=== PATIENT | male | born 1960 | race Caucasian/White ===

== ENCOUNTER 2016-08-28 13:37 | Inpatient (IN) | payer OTHER ==
[~2016-08-28] VITALS: Ht 172.7 cm; Wt 94.7 kg
[~2016-08-28 13:37] MED LIST: ALPR1TAB3 PO; ASPEC81 PO; ATOR-22 PO; GABA-112 PO; GLC/500 PO; HYDR-4079 PO; LEVO88TA PO; LSN5 PO; MECL1TAB40 PO
[2016-08-28] MEDS ORDERED: ASPI81TA28 PO (13:53)
[2016-08-28] MEDS ORDERED: LORAZEPAM 1 MG TAB PO STA (14:38)
[2016-08-28 14:57] LABS: BASO % 0.2 %; BASO ABS # 0.02 K/uL (0-0.2); COMPLETE YES; EOS % 1.1 %; HEMATOCRIT 54.7 % (42-52); IG% 0.3 %; LYMPH % 22.4 %; LYMPH ABS # 2.12 K/uL (1.2-3.4); MEAN CELL VOLUME 91.2 fL (80-100); MEAN CORPUSCULAR HEMOGLOBIN 30.3 pg (25-34); MEAN CORPUSCULAR HGB CONC 33.3 g/dl (32-36); MEAN PLATELET VOLUME 9.9 fL (7.4-10.4); MONO % 12.7 %; NEUT % 63.3 %; PLATELET COUNT 262 K/uL (130-400); WHITE BLOOD COUNT 9.47 K/uL (4.8-10.8)
[2016-08-28 15:17] LABS: BUN/CREATININE RATIO 18.8 (10-20); CALCIUM 9.7 mg/dl (8.5-10.1); CREATININE 1.2 mg/dl (0.60-1.40); POTASSIUM 3.7 mmol/L (3.5-5.1)
[2016-08-28 15:20] LABS: ACETAMINOPHEN < 2 ug/ml (10-30)
[2016-08-28] MEDS ORDERED: LORAZEPAM 1 MG TAB SL STA (15:20)
[2016-08-28 15:25] LABS: BENZODIAZEPINE, URINE POS (NEG); COCAINE,URINE NEG (NEG); PHENCYCLIDINE, URINE NEG (NEG)
[2016-08-28 15:29] LABS: ALKALINE PHOSPHATASE 62 U/L (45-117); ALT/SGPT 63 U/L (12-78); AST/SGOT 35 U/L (15-37); THYROID STIMULATING HORMONE 0.584 uIu/ml (0.300-4.500)
[2016-08-28] MEDS ORDERED: NICOTINE 14 MG/24 HR TDSY ONE (15:37)
[2016-08-28] MEDS ORDERED: ALUMINUM/MAGNESIUM SUSP 30 ML UDC PO PRN ×2 (16:15→20:45)
[2016-08-28] MEDS ORDERED: MAGNESIUM HYDROXIDE SUSP 30 ML UDC PO PRN ×2 (16:15→20:45)
[2016-08-28] MEDS ORDERED: hydrOXYzine HCL 25 MG TAB PO PRN ×4 (16:15→20:45)
[2016-08-28] MEDS ORDERED: ACETAMINOPHEN 325 MG TAB PO PRN ×2 (16:15→20:45)
[2016-08-28] MEDS ORDERED: SODIUM CHLORIDE 0.65% NA SOLN 45 ML (OCEAN) PRN ×2 (16:15→20:45)
[2016-08-28] MEDS ORDERED: BISMUTH SUBSALICYLATE PER ML OMNICELL CHARGE PO PRN (16:15)
[2016-08-28] MEDS ORDERED: HALOPERIDOL LACTATE 5 MG/ML 1 ML VIAL IM PRN (16:30)
[2016-08-28] MEDS ORDERED: HALOPERIDOL 5 MG TAB PO PRN (16:30)
[2016-08-28] MEDS ORDERED: HYDROCODONE/ACETAMI 10/325 TAB PO STA (16:35)
[2016-08-28] MEDS ORDERED: NICOTINE 14 MG/24 HR TDSY TD STA (16:40)
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
[2016-08-28] MEDS ORDERED: METFORMIN HCL 500 MG TAB PO STA (19:31)
[2016-08-28] MEDS ORDERED: ATORVASTATIN 40 MG TAB PO STA (19:31)
[2016-08-28] MEDS ORDERED: LEVOTHYROXINE 88 MCG TAB PO STA (19:31)
[2016-08-28] MEDS ORDERED: LISINOPRIL 5 MG TAB PO ONE (19:45)
[2016-08-28 20:32] VITALS: O2SAT 94
[2016-08-28] MEDS ORDERED: GABAPENTIN 100 MG CAP PO SCH (21:00)
[2016-08-28] MEDS ORDERED: METFORMIN HCL 500 MG TAB PO SCH (21:00)
[2016-08-28] MEDS ORDERED: NICOTINE POLACRILEX 2 MG GUM MT PRN (21:15)
[2016-08-28 21:20] VITALS: BP 146/102; PULSE 64; TEMP 37; BMI 31.7
[2016-08-28] MEDS: ALPRAZOLAM 0.5 MG TAB PO SCH (21:51)
[2016-08-28] MEDS: GABAPENTIN 300 MG CAP PO SCH (21:51)
[2016-08-28] MEDS: ATORVASTATIN 40 MG TAB PO SCH (21:51)
[2016-08-28] MEDS: HYDROCODONE/ACETAMI 10/325 TAB PO PRN (22:00)
[2016-08-29] MEDS ORDERED: NURSING VERBAL MED ORDER ONE ×2 (01:15→16:00)
[2016-08-29 07:01] VITALS: Ht 172.7 cm; Wt 94.7 kg
[2016-08-29 07:05] VITALS: BP_SYST 108; BP_SYST 109; BP_DIAS 71; BP_DIAS 72; PULSE 55; PULSE 60; TEMP 36.3
[2016-08-29] MEDS: ASPIRIN 81 MG ECTAB PO SCH (08:47)
[2016-08-29] MEDS: LEVOTHYROXINE 88 MCG TAB PO SCH (08:47)
[2016-08-29] MEDS: NICOTINE 21 MG/24 HR TDSY EXT SCH (08:47)
[2016-08-29] MEDS: LISINOPRIL 5 MG TAB PO SCH (08:48)
[2016-08-29] MEDS: METFORMIN HCL 500 MG TAB PO SCH ×2 (08:48→17:42)
[2016-08-29] MEDS ORDERED: ATORVASTATIN 20 MG TAB PO SCH (09:00)
[2016-08-29] MEDS ORDERED: LISINOPRIL 5 MG TAB PO SCH (09:00)
[2016-08-29] MEDS ORDERED: LEVOTHYROXINE 88 MCG TAB PO SCH (09:00)
[2016-08-29] MEDS ORDERED: ASPIRIN 81 MG ECTAB PO SCH (09:00)
[2016-08-29] MEDS ORDERED: HALOPERIDOL LACTATE 5 MG/ML 1 ML VIAL IM PRN (10:15)
[2016-08-29] MEDS ORDERED: HALOPERIDOL 5 MG TAB PO PRN (10:15)
[2016-08-29] MEDS ORDERED: FLUO10CA48 PO (11:13)
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
[2016-08-29] MEDS ORDERED: LITH1TAB16 PO (11:37)
[2016-08-29] MEDS ORDERED: LITHIUM CARBONATE 300 MG TAB PO ONE (12:15)
[2016-08-29] MEDS ORDERED: FLUOXETINE HCL 10 MG CAP PO ONE (12:15)
[2016-08-29] MEDS: HYDROCODONE/ACETAMI 10/325 TAB PO PRN ×2 (12:35→21:23)
[2016-08-29] MEDS: BISMUTH SUBSALICYLATE PER ML OMNICELL CHARGE PO PRN (17:07)
[2016-08-29] MEDS: IBUPROFEN 600 MG TAB PO PRN (18:39)
[2016-08-29] MEDS: ATORVASTATIN 40 MG TAB PO SCH (21:18)
[2016-08-29] MEDS: LITHIUM CARBONATE 300 MG TAB PO SCH (21:18)
[2016-08-29] MEDS: GABAPENTIN 300 MG CAP PO SCH (21:18)
[2016-08-29] MEDS: ALPRAZOLAM 0.5 MG TAB PO SCH (21:18)
[2016-08-30] MEDS: NICOTINE 21 MG/24 HR TDSY EXT SCH (06:42)
[2016-08-30] MEDS: HYDROCODONE/ACETAMI 10/325 TAB PO PRN ×3 (06:52→20:05)
[2016-08-30 07:00] VITALS: BP_SYST 115; BP_SYST 126; BP_DIAS 77; BP_DIAS 83; PULSE 54; PULSE 57; TEMP 36.2
[2016-08-30] MEDS: LEVOTHYROXINE 88 MCG TAB PO SCH (08:56)
[2016-08-30] MEDS: METFORMIN HCL 500 MG TAB PO SCH ×2 (08:56→17:19)
[2016-08-30] MEDS: ASPIRIN 81 MG ECTAB PO SCH (08:56)
[2016-08-30] MEDS: FLUOXETINE HCL 10 MG CAP PO SCH (08:57)
[2016-08-30] MEDS: LISINOPRIL 5 MG TAB PO SCH (08:57)
[2016-08-30] MEDS: LITHIUM CARBONATE 300 MG TAB PO SCH ×2 (08:57→21:29)
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
[2016-08-30] MEDS: BISMUTH SUBSALICYLATE PER ML OMNICELL CHARGE PO PRN (13:44)
[2016-08-30] MEDS: IBUPROFEN 600 MG TAB PO PRN (19:03)
[2016-08-30] MEDS: ALPRAZOLAM 0.5 MG TAB PO SCH (21:29)
[2016-08-30] MEDS: PRAZOSIN HCL 1 MG CAP PO SCH (21:29)
[2016-08-30] MEDS: GABAPENTIN 300 MG CAP PO SCH (21:30)
[2016-08-30] MEDS: ATORVASTATIN 40 MG TAB PO SCH (21:30)
[2016-08-31 06:59] VITALS: BP_SYST 107; BP_SYST 132; BP_DIAS 73; BP_DIAS 77; PULSE 63; PULSE 64; TEMP 36.4
[2016-08-31] MEDS: LEVOTHYROXINE 88 MCG TAB PO SCH (08:00)
[2016-08-31] MEDS: ASPIRIN 81 MG ECTAB PO SCH (08:36)
[2016-08-31] MEDS: METFORMIN HCL 500 MG TAB PO SCH ×2 (08:36→17:46)
[2016-08-31] MEDS: NICOTINE 21 MG/24 HR TDSY EXT SCH (08:36)
[2016-08-31] MEDS: HYDROCODONE/ACETAMI 10/325 TAB PO PRN (08:37)
[2016-08-31] MEDS: LITHIUM CARBONATE 300 MG TAB PO SCH ×2 (08:37→21:45)
[2016-08-31] MEDS: FLUOXETINE HCL 10 MG CAP PO SCH (08:37)
[2016-08-31] MEDS: LISINOPRIL 5 MG TAB PO SCH (08:37)
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
[2016-08-31 15:26] LABS: COD UR NEGATIVE NG/ML (CUTOFF=50); HYDROCOD UR 1480 NG/ML (CUTOFF=50); HYDROMOR UR 866 NG/ML (CUTOFF=50); HYDROXYETHYLFLURAZEPAM CONF NEGATIVE NG/ML (CUTOFF=50); HYDROXYMIDAZOLAM NEGATIVE NG/ML (CUTOFF=50); HYDROXYTRIAZOLAM CONF NEGATIVE NG/ML (CUTOFF=50); MORPHINE UR NEGATIVE NG/ML (CUTOFF=50); NORHYDROCODONE CONF UR 2120 NG/ML (CUTOFF=50); OXYMORPH UR NEGATIVE NG/ML (CUTOFF=50); TEMAZEPAM CONF NEGATIVE NG/ML (CUTOFF=50)
[2016-08-31] MEDS: ALPRAZOLAM 0.5 MG TAB PO SCH (21:44)
[2016-08-31] MEDS: ATORVASTATIN 40 MG TAB PO SCH (21:45)
[2016-08-31] MEDS: GABAPENTIN 300 MG CAP PO SCH (21:46)
[2016-08-31] MEDS: PRAZOSIN HCL 1 MG CAP PO SCH (21:46)
[2016-09-01 07:00] VITALS: BP_SYST 151; BP_SYST 154; BP_DIAS 83; BP_DIAS 88; PULSE 59; PULSE 62; TEMP 36.6
[2016-09-01] MEDS: LEVOTHYROXINE 88 MCG TAB PO SCH (08:50)
[2016-09-01] MEDS: ASPIRIN 81 MG ECTAB PO SCH (08:51)
[2016-09-01] MEDS: METFORMIN HCL 500 MG TAB PO SCH (08:51)
[2016-09-01] MEDS: FLUOXETINE HCL 10 MG CAP PO SCH (08:52)
[2016-09-01] MEDS: LISINOPRIL 5 MG TAB PO SCH (08:52)
[2016-09-01] MEDS: LITHIUM CARBONATE 300 MG TAB PO SCH (08:52)
[2016-09-01] MEDS: NICOTINE 21 MG/24 HR TDSY EXT SCH (08:53)
[2016-09-01] MEDS: HYDROCODONE/ACETAMI 10/325 TAB PO PRN (08:55)
[2016-09-01] MEDS ORDERED: LITH1TAB16 PO (09:57)
[2016-09-01] MEDS ORDERED: PRZ1 PO (09:57)
[2016-09-01] MEDS ORDERED: FLUO10CA48 PO (09:57)
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
[2016-09-01] MEDS ORDERED: XNX5 PO (12:19)
== END 2016-09-01 13:25 | disposition home or self-care (01) | DRG 883 ==
LOC: ENRESERVTM → ENRESERVDT → C.EDB 13:39 → C.MHU 19:42
PROVIDERS: ADMIT Psychiatry & Neurology Child & Adolescent Psychiatry; ATTEND Psychiatry & Neurology Psychiatry
DX: F60.2 Antisocial personality disorder (principal); F31.9 Bipolar disorder, unspecified; F43.10 Post-traumatic stress disorder, unspecified; R45.850 Homicidal ideations; F41.9 Anxiety disorder, unspecified; F17.210 Nicotine dependence, cigarettes, uncomplicated; E11.40 Type 2 diabetes mellitus with diabetic neuropathy, unspecified; E03.9 Hypothyroidism, unspecified; E78.5 Hyperlipidemia, unspecified; I10 Essential (primary) hypertension; G89.29 Other chronic pain; M54.9 Dorsalgia, unspecified; Z79.82 Long term (current) use of aspirin; Z79.899 Other long term (current) drug therapy; Z83.3 Family history of diabetes mellitus; Z80.1 Family history of malignant neoplasm of trachea, bronchus and lung; Z81.8 Family history of other mental and behavioral disorders

== ENCOUNTER 2017-04-25 15:50 | Emergency (ER) | payer OTHER ==
[~2017-04-25] VITALS: Ht 172.7 cm; Wt 102.0 kg
[~2017-04-25 15:50] MED LIST changes: -ALPR1TAB3 PO; -ASPEC81 PO; +ASPI81TA28 PO; +FLUO10CA48 PO; +LITH1TAB16 PO; -MECL1TAB40 PO; +PRZ1 PO; +XNX5 PO
[2017-04-25 16:05] VITALS: Ht 172.7 cm; Wt 102.0 kg
[2017-04-25] MEDS ORDERED: SODIUM CHLORIDE 0.9% 1000ML 500 ML IV STA (16:14)
--- NOTE | 2017-04-25 16:20 | EMERGENCY ROOM VISIT NOTE ---
History Report prepared by Priyanka: Cheyenne Peña Under the Supervision of: Dr. Rey Gates M.D. First contact with patient: 16:10 Chief Complaint: ABNORMAL LABS Stated Complaint: LITHIUM LEVELS HIGH- PHYSICIAN REFERRED History of Present Illness The patient is a 57 year old male who presents to the Emergency Room with complaints of abnormal labs. The patient states that for the past week to 10 days he has felt fatigued and more tired than usual. He had routine blood work done yesterday. Today he received a call from his PCP's office and was told that his lithium level was high and he should come to the ED for further evaluation. The patient takes 400 mg BID of lithium for a mood stabilizer. He has been taking it for 1 year and has never had problems in the past. He took his typical lithium dose this morning. The patient states that he noticed his depth perception was "off" this morning when he was walking his dog. He states that he has been feeling well, he just feels "a little bit off." The patient denies fevers, cough, chest pain, shortness of breath, nausea, vomiting, and diarrhea. He does report a tight feeling in his chest. 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 A total of 10 systems reviewed and were otherwise negative. Past Medical & Surgical Medical Problems: (1) Antisocial personality disorder (2) Anxiety (3) Biceps tendon rupture (4) Bipolar disorder, unspecified (5) Chronic back pain (6) Depression, major, recurrent, moderate (7) Diabetes (8) Diabetic neuropathy (9) Diverticulosis (10) Dyslipidemia (11) Hepatitis C (12) Homicidal ideation (13) Hypertension (14) Hypothyroid (15) Nicotine abuse Surgical Problems: (1) H/O left inguinal hernia repair (2) Hx of tonsillectomy (3) Right shoulder surgery Family History Depression MOTHER Diabetes mellitus MOTHER FH: alcoholism FATHER FH: aneurysm MOTHER FH: lung cancer GRANDMOTHER Suicide SISTER Social History Smoking Status: Current Every Day Smoker Alcohol Use: none Drug Use: none Marital Status: Housing Status: lives with family Occupation Status: other Current/Historical Medications Scheduled Aspirin (Aspirin Ec), 81 MG PO DAILY Atorvastatin (Lipitor), 40 MG PO DAILY Fluoxetine (Prozac), 10 MG PO DAILY Gabapentin (Neurontin), 300 MG PO TID Hydrocodone/Acetaminophen 10MG/325MG ([place] 10MG/325MG), 1 TAB PO QID Levothyroxine Sodium (Synthroid), 88 MCG PO DAILY Lisinopril (Zestril), 5 MG PO DAILY Metformin Hcl (Glucophage), 1,000 MG PO BID Trazodone Hcl (Trazodone), 2 TAB PO HS Allergies Coded Allergies: No Known Allergies (Verified , 04/25/17) Physical Exam Vital Signs Date Time Temp Pulse Resp B/P (MAP) Pulse Ox O2 Delivery O2 Flow Rate FiO2 04/25/17 16:05 37.2 69 16 148/93 94 Room Air Physical Exam GENERAL: Patient is in no acute distress. HEENT: No acute trauma, normocephalic atraumatic, mucous membranes moist, no nasal congestion, no scleral icterus. PERRL. NECK: No stridor, no adenopathy, no meningismus, trachea is midline. LUNGS: Scattered wheezing bilaterally, no rhonchi, breath sounds equal. HEART: Without murmurs gallops or rubs, regular rate and rhythm. ABDOMEN: Soft, nontender, bowel sounds positive, no hernias, no peritonitis. EXTREMITIES: No cyanosis or edema, full range of motion of all the joints without pain or difficulty, no signs for acute trauma. NEUROLOGIC: Oriented x 3, no acute motor or sensory deficits, no focal weakness. No pronator drift or cerebellar dysfunction. SKIN: No rash, no jaundice, no diaphoresis. Medical Decision & Procedures Laboratory Results 04/25/17 16:25 Red Blood Count 5.68, Mean Corpuscular Volume 91.5, Mean Corpuscular Hemoglobin 30.5, Mean Corpuscular Hemoglobin Concent 33.3, Mean Platelet Volume 9.7, Neutrophils (%) (Auto) 66.4, Lymphocytes (%) (Auto) 24.0, Monocytes (%) (Auto) 7.6, Eosinophils (%) (Auto) 1.0, Basophils (%) (Auto) 0.3, Neutrophils # (Auto) 6.10, Lymphocytes # (Auto) 2.20, Monocytes # (Auto) 0.70, Eosinophils # (Auto) 0.09, Basophils # (Auto) 0.03 04/25/17 16:25 Test 04/25/17 16:25 White Blood Count 9.18 K/uL (4.8-10.8) Red Blood Count 5.68 M/uL (4.7-6.1) Hemoglobin 17.3 g/dL (14.0-18.0) Hematocrit 52.0 % (42-52) Mean Corpuscular Volume 91.5 fL (80-100) Mean Corpuscular Hemoglobin 30.5 pg (25-34) Mean Corpuscular Hemoglobin Concent 33.3 g/dl (32-36) Platelet Count 239 K/uL (130-400) Mean Platelet Volume 9.7 fL (7.4-10.4) Neutrophils (%) (Auto) 66.4 % Lymphocytes (%) (Auto) 24.0 % Monocytes (%) (Auto) 7.6 % Eosinophils (%) (Auto) 1.0 % Basophils (%) (Auto) 0.3 % Neutrophils # (Auto) 6.10 K/uL (1.4-6.5) Lymphocytes # (Auto) 2.20 K/uL (1.2-3.4) Monocytes # (Auto) 0.70 K/uL (0.11-0.59) Eosinophils # (Auto) 0.09 K/uL (0-0.5) Basophils # (Auto) 0.03 K/uL (0-0.2) RDW Standard Deviation 45.9 fL (36.4-46.3) RDW Coefficient of Variation 13.7 % (11.5-14.5) Immature Granulocyte % (Auto) 0.7 % Immature Granulocyte # (Auto) 0.06 K/uL (0.00-0.02) Anion Gap 7.0 mmol/L (3-11) Est Creatinine Clear Calc Drug Dose 76.7 ml/min Estimated GFR () 76.3 Estimated GFR (Non- 65.8 BUN/Creatinine Ratio 11.0 (10-20) Calcium Level 9.2 mg/dl (8.5-10.1) Magnesium Level 2.1 mg/dl (1.8-2.4) Total Bilirubin 0.5 mg/dl (0.2-1) Aspartate Amino Transf (AST/SGOT) 36 U/L (15-37) Alanine Aminotransferase (ALT/SGPT) 77 U/L (12-78) Alkaline Phosphatase 60 U/L (45-117) Troponin I < 0.015 ng/ml (0-0.045) Total Protein 7.8 gm/dl (6.4-8.2) Albumin 4.0 gm/dl (3.4-5.0) Globulin 3.8 gm/dl (2.5-4.0) Albumin/Globulin Ratio 1.1 (0.9-2) Thyroid Stimulating Hormone (TSH) 1.700 uIu/ml (0.300-4.500) Free Thyroxine 0.99 ng/dl (0.80-1.60) [place] Level 0.7 mMOL/L (0.6-1.2) Laboratory results reviewed by me. Medications Administered Medications (Trade) Dose Ordered Sig/Kimberly Route Start Time Stop Time Status Last Admin Dose Admin Sodium Chloride 500 ml @ 999 mls/hr Q31M STAT IV 04/25/17 16:14 04/25/17 16:44 DC 04/25/17 16:14 999 MLS/HR ECG Indication: other Rate (beats per minute): 67 Rhythm: sinus rhythm Findings: PAC, no acute ischemic change, prolonged QT (mildly) ED Course 1610: The patient was evaluated in room A3. A complete history and physical exam was performed. 1614: NSS 500 ml @ 999 mls/hr IV Medical Decision Differential diagnoses includes dehydration, lithium toxicity, electrolyte imbalance, anemia, infection, dysrhythmia. There is no leukocytosis or concerning anemia. No significant electrolyte abnormality, kidney failure or hepatitis. The patient appears to be in a euthyroid state. [place] level is normal, it is not toxic. EKG shows a sinus rhythm, there is no acute ischemia. Cardiac enzyme testing 1 is not consistent with acute cardiac injury. The patient received IV saline. He was here because of a reported high lithium level. He's felt slightly different the last few days or so but otherwise has had no complaints. His workup is benign, he was reassured by his normal lithium level. He is being discharged with follow-up through his doctor's office this week. If worsening, he can return. Medication Reconcilliation Current Medication List: was personally reviewed by me Blood Pressure Screening Patient's blood pressure: Elevated blood pressure Blood pressure disposition: Elevated BP felt to be situational Impression Primary Impression: Fatigue Scribe Attestation The scribe's documentation has been prepared under my direction and personally reviewed by me in its entirety. I confirm that the note above accurately reflects all work, treatment, procedures, and medical decision making performed by me. Departure Information Dispostion Home / Self-Care Referrals Roseann Chaney M.D. (MEDICAL) (PCP) Patient Instructions My [facility] Additional Instructions follow with danita moreira this week rest stay hydrated return if worsening lab testing was ok today
[2017-04-25 16:39] LABS: BASO % 0.3 %; BASO ABS # 0.03 K/uL (0-0.2); COMPLETE YES; IG% 0.7 %; MEAN CELL VOLUME 91.5 fL (80-100); MEAN CORPUSCULAR HEMOGLOBIN 30.5 pg (25-34); MEAN CORPUSCULAR HGB CONC 33.3 g/dl (32-36); MEAN PLATELET VOLUME 9.7 fL (7.4-10.4); MONO % 7.6 %; NEUT % 66.4 %; PLATELET COUNT 239 K/uL (130-400); RED BLOOD COUNT 5.68 M/uL (4.7-6.1); WHITE BLOOD COUNT 9.18 K/uL (4.8-10.8)
[2017-04-25] MEDS ORDERED: LISI-729 PO (16:46)
[2017-04-25] MEDS ORDERED: TRAZ100T29 PO (16:46)
[2017-04-25] MEDS ORDERED: FLUO10CA48 PO (16:46)
[2017-04-25 17:01] LABS: ALT/SGPT 77 U/L (12-78); AST/SGOT 36 U/L (15-37); BLOOD UREA NITROGEN 13 mg/dl (7-18); CALCIUM 9.2 mg/dl (8.5-10.1); CARBON DIOXIDE 26 mmol/L (21-32); CHLORIDE 104 mmol/L (98-107); GLUCOSE 179 mg/dl (70-99); MAGNESIUM 2.1 mg/dl (1.8-2.4); POTASSIUM 3.7 mmol/L (3.5-5.1); SODIUM 137 mmol/L (136-145)
[2017-04-25 17:12] LABS: ALB/GLOB RATIO 1.1 (0.9-2); ALKALINE PHOSPHATASE 60 U/L (45-117)
[2017-04-25 18:20] VITALS: TEMP 37.2
[2017-04-25 18:21] VITALS: BP 186/103; PULSE 61; O2SAT 94
== END 2017-04-25 18:21 | disposition home or self-care (01) ==
LOC: C.EDB 15:52 → C.EDA 18:21
DX: R53.83 Other fatigue (principal); F60.2 Antisocial personality disorder; F41.9 Anxiety disorder, unspecified; F31.9 Bipolar disorder, unspecified; M54.9 Dorsalgia, unspecified; G89.29 Other chronic pain; F33.1 Major depressive disorder, recurrent, moderate; E11.40 Type 2 diabetes mellitus with diabetic neuropathy, unspecified; E78.5 Hyperlipidemia, unspecified; B19.20 Unspecified viral hepatitis C without hepatic coma; K57.90 Diverticulosis of intestine, part unspecified, without perforation or abscess without bleeding; I10 Essential (primary) hypertension; E03.9 Hypothyroidism, unspecified; F17.200 Nicotine dependence, unspecified, uncomplicated; Z79.82 Long term (current) use of aspirin; Z79.84 Long term (current) use of oral hypoglycemic drugs; Z81.8 Family history of other mental and behavioral disorders; Z83.3 Family history of diabetes mellitus; Z82.49 Family history of ischemic heart disease and other diseases of the circulatory system; Z80.1 Family history of malignant neoplasm of trachea, bronchus and lung

== ENCOUNTER 2017-09-24 08:50 | Inpatient (IN) | payer OTHER ==
[~2017-09-24] VITALS: Ht 172.7 cm; Wt 100.7 kg
[~2017-09-24 08:50] MED LIST changes: +LISI-729 PO; -LITH1TAB16 PO; -LSN5 PO; -PRZ1 PO; +TRAZ100T29 PO; -XNX5 PO
[2017-09-24] MEDS ORDERED: ADENOSINE IV SOLN 3 MG/ML 2 ML VIAL ONE (09:02)
--- NOTE | 2017-09-24 09:24 | DIAGNOSTIC IMAGING REPORT ---
CHEST ONE VIEW PORTABLE CLINICAL HISTORY: palp cardiac arrhythmia COMPARISON STUDY: 02/17/2015 FINDINGS: Mild cardiomegaly. Increased interstitial prominence throughout both hemithoraces. Diaphragms smooth. IMPRESSION: Mild cardiomegaly with findings suggesting early interstitial edema The above report was generated using voice recognition software. It may contain grammatical, syntax or spelling errors. Electronically signed by: Dean Mobley M.D. 09/24/2017 9:23 AM Dictated Date/Time: 09/24/2017 9:22 AM
[2017-09-24 09:26] LABS: BASO % 0.2 %; BASO ABS # 0.02 K/uL (0-0.2); HEMATOCRIT 57.4 % (42-52); HEMOGLOBIN 20.8 g/dL (14.0-18.0); IG# 0.06 K/uL (0.00-0.02); LYMPH % 14.2 %; LYMPH ABS # 1.62 K/uL (1.2-3.4); MEAN CELL VOLUME 90.5 fL (80-100); MEAN CORPUSCULAR HEMOGLOBIN 32.8 pg (25-34); MEAN CORPUSCULAR HGB CONC 36.2 g/dl (32-36); MEAN PLATELET VOLUME 10.4 fL (7.4-10.4); MONO % 13.6 %; MONO ABS # 1.56 K/uL (0.11-0.59); NEUT % 71.5 %; NEUT ABS # 8.17 K/uL (1.4-6.5); PLATELET COUNT 191 K/uL (130-400); RED CELL DISTRIBUTION WIDTH CV 13.8 % (11.5-14.5); RED CELL DISTRIBUTION WIDTH SD 46.2 fL (36.4-46.3); WHITE BLOOD COUNT 11.43 K/uL (4.8-10.8)
[2017-09-24] MEDS ORDERED: OPTIRAY 320 IV PRN (09:30)
[2017-09-24] MEDS ORDERED: SODIUM CHLORIDE 0.9% 1000ML 1,000 ML IV STA (09:31)
[2017-09-24 09:34] LABS: PTT PATIENT 28.7 SECONDS (21.0-31.0)
[2017-09-24 09:41] LABS: ALBUMIN 4.3 gm/dl (3.4-5.0); ALT/SGPT 123 U/L (12-78); AST/SGOT 67 U/L (15-37); BLOOD UREA NITROGEN 11 mg/dl (7-18); CARBON DIOXIDE 26 mmol/L (21-32); CREATININE 1.28 mg/dl (0.60-1.40); GLUCOSE 155 mg/dl (70-99); LIPASE 127 U/L (73-393); POTASSIUM 3.4 mmol/L (3.5-5.1); SODIUM 134 mmol/L (136-145)
--- NOTE | 2017-09-24 09:45 | EMERGENCY ROOM VISIT NOTE ---
ED Visit Note First contact with patient: 09:00 CHIEF COMPLAINT: Rapid heart rate, chest and abdominal pain, SOB HISTORY OF PRESENTING ILLNESS: This is a 57-year-old male who presents to the emergency department with complaint of shortness of breath, chest pain, abdominal pain, dizziness for the past few days. He states his symptoms got severely worse today. He states the pain is a constant ache, with occasional intermittent sharp stabbing pains in the upper abdomen, worse with taking a deep breath, 5/10. Patient states he has been sick with flulike symptoms for the past few days with fevers and chills, vomiting and diarrhea, and a cough. He states he has been feeling very fatigued. He started having abdominal pain and a distended abdomen last night which has gotten progressively worse today. Patient states that he has been a smoker for the past 40 years and reports a history of COPD. When his cough and shortness of breath symptoms started getting worse he did take 1 dose of prednisone yesterday, but has not been seen by his doctor. He is not currently on antibiotics. He denies any headaches, vision changes, neck pain or stiffness, back pain, hematemesis, bloody or black stools, urinary symptoms, or rash. REVIEW OF SYSTEMS: A complete 10 point review of systems was reviewed with the patient with pertinent positives and negatives as per history of present illness. All else were negative. PAST MEDICAL HISTORY: Reviewed in chart. SOCIAL HISTORY: Lives at home. He is a current everyday smoker. Denies alcohol and recreational drug use. ALLERGIES: No known allergies. PHYSICAL EXAM: CONSTITUTIONAL: Patient is in obvious distress, tachypneic and use of accessory muscles noted, able to speak in short sentences. Patient appears slightly pale , not diaphoretic. Moderately dehydrated. HEENT: Normocephalic, atraumatic. PERRL, EOMI. TMs normal. Pharynx normal. Dry mucous membranes. NECK: Supple, full active range of motion without discomfort. No cervical adenopathy. RESPIRATORY: Diminished throughout with diffuse expiratory wheezing on auscultation. Tachypneic with accessory muscle use. No crackles, rhonchi or stridor. Equal expansion bilaterally. CARDIOVASCULAR: Tachycardic. Regular rhythm with no murmurs, rubs or gallops. Delayed capillary refill. No extremity edema. No JVD. No carotid bruit heard on auscultation. GASTROINTESTINAL: Distended, diffusely tender throughout, firm. Mottled skin across the entire abdomen. Decreased bowel sounds throughout. MUSCULOSKELETAL: Full range of motion of all joints without discomfort. INTEGUMENTARY: No rash or other significant dermatologic conditions noted. NEUROLOGIC: Alert and oriented X 4 with normal affect. No focal neurologic deficits noted. Normal speech. ED COURSE AND MEDICAL DECISION MAKING: CC: Patient presenting with complaint of rapid heart rate, abdominal and chest pain DIFFERENTIAL DIAGNOSIS: Includes, but not limited to SBO, ischemic bowel, appendicitis, diverticulitis, bowel perforation, cardiac dysrhythmia, acute coronary syndrome, aortic dissection, PE, pneumonia, COPD exacerbation, CHF, sepsis/bacteremia, dehydration, electrolyte imbalance, among others. INTERPRETATION OF LABS: Mild leukocytosis with left shift, polycythemia ( appears worse from baseline), normal platelets, mild hypokalemia, no significant electrolyte abnormalities, renal function within normal limits and appears to be at baseline, mild elevation in transaminases, liver enzymes otherwise normal. Initial troponin negative, pro-BNP within normal limits. Lactic acid negative. Venous blood gas appears within normal limits. Coagulation factors within normal limits. TSH normal. Positive for influenza type B. UA pending. Blood cultures 2 pending. IMAGING: CHEST ONE VIEW PORTABLE CLINICAL HISTORY: palp cardiac arrhythmia COMPARISON STUDY: 02/17/2015 FINDINGS: Mild cardiomegaly. Increased interstitial prominence throughout both hemithoraces. Diaphragms smooth. IMPRESSION: Mild cardiomegaly with findings suggesting early interstitial edema ----- CT OF THE ABDOMEN AND PELVIS WITH CONTRAST CLINICAL HISTORY: Abdominal distention. COMPARISON STUDY: CT of the abdomen and pelvis March 29, 2011. TECHNIQUE: Following IV administration of 92 mL of Optiray-320, axial images of the abdomen and pelvis were obtained from the lung bases to the proximal femurs. Images were reviewed in the axial, sagittal, and coronal planes. IV contrast was administered without complication. A dose lowering technique was utilized adhering to the principles of ALARA. CT DOSE: 1405.14 mGy.cm FINDINGS: Visualized portions of the lower lungs demonstrate subpleural reticulation with mild traction bronchiectasis and suspected honeycombing most evident within the lingula. There are calcified mediastinal and bilateral hilar lymph nodes. Fatty infiltration of the liver is noted. A 1.4 cm segment 5 hypodense hepatic lesion is unchanged since CT of March 29, 2011. This is benign given stability. 6 mm left lower lobe pulmonary nodule is unchanged. This is benign given stability. The spleen, adrenal glands and pancreas are normal. There are innumerable bilateral renal lesions. The larger lesions measure water attenuation and reflect cysts. There are numerous subcentimeter renal lesions which are too small to characterize but likely reflect cysts as well. There is a 3 cm infrarenal abdominal aortic aneurysm without evidence for rupture. There is no evidence for a bowel obstruction. Note is made of colonic diverticulosis without evidence for acute diverticulitis. The appendix is normal. There is no lymphadenopathy. No suspicious osseous lesion is present. IMPRESSION: 1. No acute process within the abdomen or pelvis. 2. Subpleural reticulation with mild traction bronchiectasis and probable honeycombing within the lingula which is consistent with interstitial lung disease with a UIP pattern. 3. Fatty liver. 4. Sigmoid diverticulosis without evidence for acute diverticulitis. 5. 3 cm infrarenal abdominal aortic aneurysm. No rupture. EKG: Shows supraventricular tachycardia with rate of 167bpm by my interpretation. MEDICATION RECONCILIATION: I attest that I have personally reviewed the patient 's current medication list. INITIAL VITAL SIGNS REVIEW: I reviewed the patient's initial vital signs and interpret them as follows: T: Afebrile; BP: Hypertensive; HR: Markedly tachycardic; RR: Tachypneic; Pulse Ox: Hypoxic on room air, improved on 4L O2. Blood pressure screening: The patient was found to have an elevated blood pressure and was referred to the inpatient hospitalist team for further management. CRITICAL CARE NOTE: I have personally spent greater than 30 minutes of critical care time in the direct management of this patient. This includes bedside care, interpretation of diagnostic studies, and testing, discussion with consultants, patient, and family members, and other required patient management activities. This 30 minutes is in excess of all separately billable procedures. SUMMARY: Patient was evaluated at bedside in room B1, history and physical exam performed. The patient noted to be in a rapid heart rate of 160-170s, reading SVT on EKG. Patient is notably short of breath, tachypneic, using accessory muscles, and hypoxic to 87% on room air. Placed on 4L nasal cannula with initial improvement to 94%. He is a smoker and reports history of COPD, but does not appear to be on medications for this. He does not use home O2. Lungs are diminished with diffuse expiratory wheezes. No rales, JVD, or extremity edema to suggest severe fluid overload. He does appear moderately dehydrated on exam, IV fluid bolus initiated. Blood pressure stable. The abdomen is distended and diffusely tender with mottled skin. The patient was able to perform vagal maneuvers which did temporarily bring his heart rate down to a rate of 80s-90s beats per minute. Given concern for moderate volume depletion, and some responsiveness to vagal maneuvers, adenosine was held in lieu of IV fluid hydration. EKG was captured during this time, noting an underlying sinus rhythm with sinus arrhythmia and occasional PVCs and rate of 88 bpm. Orders were placed at bedside for labs including blood cultures and lactic acid , influenza, UA, IV fluid bolus for hydration, chest x-ray, CT abdomen/pelvis to evaluate for intra-abdominal etiology, specifically concern for SBO, perforation, and infectious process. IV fentanyl ordered for pain, with good improvement. Patient discussed with Dr. Cornejo, who was at bedside during initial evaluation of the patient and agrees with my assessment and plan. Labs and imaging reviewed as above, he is positive for influenza type B. Tamiflu was ordered. No acute abdominal process, suspect abdominal distention secondary to retention of air. Lung findings suggestive of interstitial disease. Incidental note is made of 3 cm infrarenal aortic aneurysm without any sign of rupture. I suspect the patient's SOB most likely related to COPD exacerbation, treated with IV Solu-Medrol, DuoNeb, and he was given IV Levaquin for potential pneumonia. Patient did spontaneously convert out of his rapid rhythm into a normal sinus rhythm with a rate in the 70s after receiving IV fluids, and is overall improving. He does continue to require 4L of oxygen to maintain sats. Patient was discussed with BERNA Mason with hospitalist service, who agrees to evaluate the patient for admission. Patient was closely monitored and reassessed multiple times throughout ED stay, he is stabilizing and symptoms are improving with the above interventions. Patient was updated on all results and plan for admission, he verbalized understanding and was agreeable to this plan. The patient was stable at time of admission. Problem List Medical Problems: (1) Anxiety Status: Chronic (2) Biceps tendon rupture Permanent Comment: s/p repair Status: Chronic (3) Chronic back pain Status: Chronic (4) Depression, major, recurrent, moderate Status: Chronic (5) Diabetes Status: Chronic (6) Diabetic neuropathy Status: Chronic (7) Diverticulosis Status: Chronic (8) Dyslipidemia Status: Chronic (9) Headache Status: Resolved (10) Hepatitis C Status: Chronic (11) Hypertension Status: Chronic (12) Hypothyroid Status: Chronic (13) Nicotine abuse Status: Chronic Surgical Problems: (1) H/O left inguinal hernia repair Status: Chronic (2) Hx of tonsillectomy Status: Chronic (3) Right shoulder surgery Status: Chronic Current/Historical Medications Scheduled Aspirin (Aspirin Ec), 81 MG PO DAILY Atorvastatin (Lipitor), 1 TAB PO DAILY Gabapentin (Neurontin), 300 MG PO TID Levothyroxine Sodium (Synthroid), 88 MCG PO DAILY Lisinopril (Prinivil), 20 MG PO DAILY Metformin Hcl (Glucophage), 1,000 MG PO BID Trazodone Hcl (Trazodone), 3 TAB PO HS Scheduled PRN Hydrocodone/Acetaminophen ([place] 10/325 Tab), 1 TAB PO Q6H PRN for Pain Allergies Coded Allergies: No Known Allergies (Verified , 09/24/17) Vital Signs Date Time Temp Pulse Resp B/P (MAP) Pulse Ox O2 Delivery O2 Flow Rate FiO2 09/24/17 13:58 64 20 148/87 97 09/24/17 13:08 69 20 153/93 94 Nasal Cannula 4.0 09/24/17 12:15 93 Nasal Cannula 4.0 09/24/17 12:11 93 Nasal Cannula 4.0 09/24/17 12:04 79 18 124/82 87 Room Air 09/24/17 11:38 Nasal Cannula 2.0 09/24/17 11:00 86 20 143/92 93 Nasal Cannula 2.0 09/24/17 10:11 78 19 149/98 96 Nasal Cannula 4.0 09/24/17 10:09 76 09/24/17 09:46 138 29 122/89 94 Nasal Cannula 4.0 09/24/17 09:39 82 24 151/104 96 Nasal Cannula 4.0 09/24/17 09:37 153/102 09/24/17 09:35 67 29 94 09/24/17 09:30 97 27 95 09/24/17 09:25 60 22 96 09/24/17 09:24 37.5 09/24/17 09:20 106 15 95 09/24/17 09:20 120 09/24/17 09:16 126/89 09/24/17 09:16 86 09/24/17 09:10 Nasal Cannula 4.0 09/24/17 09:09 146 09/24/17 09:02 160 22 147/84 92 Room Air Laboratory Results 09/24/17 09:10 Red Blood Count 6.34, Mean Corpuscular Volume 90.5, Mean Corpuscular Hemoglobin 32.8, Mean Corpuscular Hemoglobin Concent 36.2, Mean Platelet Volume 10.4, Neutrophils (%) (Auto) 71.5, Lymphocytes (%) (Auto) 14.2, Monocytes (%) (Auto) 13.6, Eosinophils (%) (Auto) 0.0, Basophils (%) (Auto) 0.2, Neutrophils # (Auto ) 8.17, Lymphocytes # (Auto) 1.62, Monocytes # (Auto) 1.56, Eosinophils # (Auto ) 0.00, Basophils # (Auto) 0.02 09/24/17 09:10 Test 09/24/17 09:10 09/24/17 09:20 09/24/17 09:35 White Blood Count 11.43 K/uL (4.8-10.8) Red Blood Count 6.34 M/uL (4.7-6.1) Hemoglobin 20.8 g/dL (14.0-18.0) Hematocrit 57.4 % (42-52) Mean Corpuscular Volume 90.5 fL (80-100) Mean Corpuscular Hemoglobin 32.8 pg (25-34) Mean Corpuscular Hemoglobin Concent 36.2 g/dl (32-36) Platelet Count 191 K/uL (130-400) Mean Platelet Volume 10.4 fL (7.4-10.4) Neutrophils (%) (Auto) 71.5 % Lymphocytes (%) (Auto) 14.2 % Monocytes (%) (Auto) 13.6 % Eosinophils (%) (Auto) 0.0 % Basophils (%) (Auto) 0.2 % Neutrophils # (Auto) 8.17 K/uL (1.4-6.5) Lymphocytes # (Auto) 1.62 K/uL (1.2-3.4) Monocytes # (Auto) 1.56 K/uL (0.11-0.59) Eosinophils # (Auto) 0.00 K/uL (0-0.5) Basophils # (Auto) 0.02 K/uL (0-0.2) RDW Standard Deviation 46.2 fL (36.4-46.3) RDW Coefficient of Variation 13.8 % (11.5-14.5) Immature Granulocyte % (Auto) 0.5 % Immature Granulocyte # (Auto) 0.06 K/uL (0.00-0.02) Prothrombin Time 10.7 SECONDS (9.0-12.0) Prothromb Time International Ratio 1.0 (0.9-1.1) Activated Partial Thromboplast Time 28.7 SECONDS (21.0-31.0) Partial Thromboplastin Ratio 1.1 Anion Gap 10.0 mmol/L (3-11) Est Creatinine Clear Calc Drug Dose 69.2 ml/min Estimated GFR () 70.5 Estimated GFR (Non- 60.9 BUN/Creatinine Ratio 8.9 (10-20) Calcium Level 9.0 mg/dl (8.5-10.1) Magnesium Level 2.0 mg/dl (1.8-2.4) Total Bilirubin 0.6 mg/dl (0.2-1) Direct Bilirubin 0.1 mg/dl (0-0.2) Aspartate Amino Transf (AST/SGOT) 67 U/L (15-37) Alanine Aminotransferase (ALT/SGPT) 123 U/L (12-78) Alkaline Phosphatase 77 U/L (45-117) Total Creatine Kinase 133 U/L (39-308) Creatine Kinase MB 0.8 ng/ml (0.5-3.6) Creatine Kinase MB Ratio 0.6 (0-3.0) Pro-B-Type Natriuretic Peptide 415 pg/ml (0-900) Total Protein 8.6 gm/dl (6.4-8.2) Albumin 4.3 gm/dl (3.4-5.0) Lipase 127 U/L (73-393) Beta-Hydroxybutyric Acid 2.73 mg/dL (0.2-2.81) Thyroid Stimulating Hormone (TSH) 1.350 uIu/ml (0.300-4.500) Influenza Type A (RT-PCR) Neg for Influ A (NEG) Influenza Type B (RT-PCR) POS for Influ B (NEG) Venous Blood pH 7.40 (7.36-7.41) Venous Blood Partial Pressure CO2 46 mmHg (38.0-50.0) Venous Blood Partial Pressure O2 29 mmHg Venous Blood HCO3 27 mmol/L Venous Blood Oxygen Saturation < 60.0 % Venous Blood Base Excess 1.9 mEq/L Lactic Acid Level 1.7 mmol/L (0.4-2.0) Medications Administered Medications (Trade) Dose Ordered Sig/Kimberly Route Start Time Stop Time Status Last Admin Dose Admin Sodium Chloride 1,000 ml @ 999 mls/hr Q1H1M STAT IV 09/24/17 09:31 09/24/17 10:31 DC 09/24/17 09:20 999 MLS/HR Oseltamivir Phosphate (Tamiflu Cap) 75 mg NOW STAT PO 09/24/17 10:26 09/24/17 10:32 DC 09/24/17 11:27 75 MG Levofloxacin (Levaquin / D5W) 750 mg NOW STAT IV 09/24/17 10:26 09/24/17 10:32 DC 09/24/17 11:28 750 MG Albuterol/ Ipratropium (Duoneb) 3 ml NOW STAT INH 09/24/17 10:26 09/24/17 10:32 DC 09/24/17 11:28 3 ML Methylprednisolone Sodium Succinate (Solu-Medrol IV) 125 mg NOW STAT IV 09/24/17 10:26 09/24/17 10:32 DC 09/24/17 11:27 125 MG Fentanyl Citrate (Fentanyl Inj) 50 mcg NOW STAT IV 09/24/17 10:48 09/24/17 10:49 DC 09/24/17 12:20 50 MCG Departure Information Impression Primary Impression: COPD exacerbation Additional Impressions: Hypoxia Influenza B Tachyarrhythmia Dispostion Admitted as an inpatient Condition FAIR Referrals Roseann Chaney M.D. (MEDICAL) (PCP) Patient Instructions [facility] Problem Qualifiers
[2017-09-24 09:50] LABS: ALKALINE PHOSPHATASE 77 U/L (45-117); CKMB 0.8 ng/ml (0.5-3.6); TOTAL PROTEIN 8.6 gm/dl (6.4-8.2)
--- NOTE | 2017-09-24 09:56 | EMERGENCY ROOM VISIT NOTE ---
ED Visit Note First contact with patient: 09:02 This Patient was discussed with the APC, Rachel Truong NP. The pertinent historical and physical exam findings were confirmed. I agree with the studies ordered and with the interpretations of these studies. I agree with the disposition and care plan.
[2017-09-24 10:22] LABS: INFLUENZA A PCR Neg for Influ A (NEG); INFLUENZA B PCR POS for Influ B (NEG)
--- NOTE | 2017-09-24 10:23 | DIAGNOSTIC IMAGING REPORT ---
CT OF THE ABDOMEN AND PELVIS WITH CONTRAST CLINICAL HISTORY: Abdominal distention. COMPARISON STUDY: CT of the abdomen and pelvis March 29, 2011. TECHNIQUE: Following IV administration of 92 mL of Optiray-320, axial images of the abdomen and pelvis were obtained from the lung bases to the proximal femurs. Images were reviewed in the axial, sagittal, and coronal planes. IV contrast was administered without complication. A dose lowering technique was utilized adhering to the principles of ALARA. CT DOSE: 1405.14 mGy.cm FINDINGS: Visualized portions of the lower lungs demonstrate subpleural reticulation with mild traction bronchiectasis and suspected honeycombing most evident within the lingula. There are calcified mediastinal and bilateral hilar lymph nodes. Fatty infiltration of the liver is noted. A 1.4 cm segment 5 hypodense hepatic lesion is unchanged since CT of March 29, 2011. This is benign given stability. 6 mm left lower lobe pulmonary nodule is unchanged. This is benign given stability. The spleen, adrenal glands and pancreas are normal. There are innumerable bilateral renal lesions. The larger lesions measure water attenuation and reflect cysts. There are numerous subcentimeter renal lesions which are too small to characterize but likely reflect cysts as well. There is a 3 cm infrarenal abdominal aortic aneurysm without evidence for rupture. There is no evidence for a bowel obstruction. Note is made of colonic diverticulosis without evidence for acute diverticulitis. The appendix is normal. There is no lymphadenopathy. No suspicious osseous lesion is present. IMPRESSION: 1. No acute process within the abdomen or pelvis. 2. Subpleural reticulation with mild traction bronchiectasis and probable honeycombing within the lingula which is consistent with interstitial lung disease with a UIP pattern. 3. Fatty liver. 4. Sigmoid diverticulosis without evidence for acute diverticulitis. 5. 3 cm infrarenal abdominal aortic aneurysm. No rupture. Electronically signed by: Vinicius Olea M.D. 09/24/2017 10:21 AM Dictated Date/Time: 09/24/2017 10:08 AM
[2017-09-24] MEDS ORDERED: METHYLPREDNISOLONE 125 MG VIAL IV STA (10:26)
[2017-09-24] MEDS ORDERED: LEVAQUIN 750MG / 150ML D5W IV STA (10:26)
[2017-09-24] MEDS ORDERED: OSELTAMIVIR PHOSPHATE 75 MG CAP PO STA (10:26)
[2017-09-24] MEDS ORDERED: ALBUT/IPRATROP 3MG/0.5MG NEB 3 ML VIAL INH STA (10:26)
[2017-09-24] MEDS ORDERED: LISI20TA3 PO (10:26)
[2017-09-24] MEDS ORDERED: FENTANYL CITRATE INJ 50 MCG/1 ML 2 ML VIAL IV STA (10:48)
[2017-09-24] MEDS ORDERED: POLYETHYLENE (MIRALAX) 17 GM PACK PO PRN (12:00)
[2017-09-24] MEDS ORDERED: NITROGLYCERIN 0.4 MG SL PER TAB CHARGE SL PRN (12:00)
[2017-09-24] MEDS ORDERED: ACETAMINOPHEN 325 MG TAB PO PRN (12:00)
[2017-09-24] MEDS ORDERED: LPT40 PO (12:05)
[2017-09-24] MEDS ORDERED: TRAZ50TA35 PO (12:08)
[2017-09-24] MEDS ORDERED: HYDR-4383 PO (12:08)
[2017-09-24] MEDS ORDERED: METF1000 PO (12:08)
[2017-09-24 12:15] VITALS: O2SAT 93; Ht 172.7 cm; Wt 100.7 kg
[2017-09-24] MEDS ORDERED: GLUCOSE 10 TABS/TUBE PO PRN (12:15)
[2017-09-24] MEDS ORDERED: DEXTROSE 50% 50 ML SYR IV PRN (12:15)
[2017-09-24] MEDS ORDERED: GLUCOSE 40% GEL 15 GM TUBE PO PRN (12:15)
[2017-09-24] MEDS ORDERED: GLUCAGON FOR INJ 1 MG VIAL SQ PRN (12:15)
--- NOTE | 2017-09-24 13:13 | History and Physical ---
History & Physical Date & Time of Service: Sep 24, 2017 at 12:33 Chief Complaint: Difficulty Breathing, Dzzy, Chest Pain, Upset Stom Primary Care Physician: Roseann Chaney M.D. (MEDICAL) History of Present Illness Source: patient, clinic records, hospital records Pt is 57 y/o M with PMH DM II, hypothyroidism, hypertension, dyslipidemia, anxiety, depression, PTSD, tobacco abuse presented to ER with complaint of shortness of breath. Patient reports 2 days ago started with sudden onset of diffuse myalgias and arthralgias, chills, sweats, productive cough of green/ yellow sputum. Patient also started with dizziness, nausea, vomiting with drinking or eating, diarrhea 4-5 episodes. Last episode of diarrhea and vomiting last evening. patient reports has been coughing a lot and since started with upper abdominal discomfort and lower chest discomfort aggravated with coughing. Patient denies any known history of COPD however has been smoker 40 years. Patient reports took 1 tablet of his 's prednisone yesterday thought that may have helped some. Patient reports woke up this morning with increased shortness of breath denies any palpitations. Patient reports has not been eating or drinking secondary to nausea vomiting and diarrhea. Upon arrival to ER patient was noted to be in SVT 140s-170. Patient converted prior to adenosine being given. ER reports had patient perform vagal maneuver. Patient reports less shortness of breath but still feels "winded". States upper abdomen feels less tender since ED arrival. Denies hematemesis, hematochezia, melena, hemoptysis, [place], syncope, vision changes, neck pain, orthopnea, palpitations, choking, otalgia, paresthesias, extremity weakness, extremity edema, rashes, urinary symptoms. In the ER patient temperature 37.5C, pulse 160 down to 78, respirations 29 down to 19, 87-92% on room air up to 96% on 4 L nasal cannula. given 1 L NSS, Solu-Medrol 125 mg IV, DuoNeb, Levaquin 750 mg IV, Tamiflu, fentanyl 50 mcg. Past Medical/Surgical History Medical Problems: (1) Anxiety Status: Chronic (2) Biceps tendon rupture Permanent Comment: s/p repair Status: Chronic (3) Chronic back pain Status: Chronic (4) Depression, major, recurrent, moderate Status: Chronic (5) Diabetes Status: Chronic (6) Diabetic neuropathy Status: Chronic (7) Diverticulosis Status: Chronic (8) Dyslipidemia Status: Chronic (9) Headache Status: Resolved (10) Hepatitis C Status: Chronic (11) Hypertension Status: Chronic (12) Hypothyroid Status: Chronic (13) Nicotine abuse Status: Chronic Surgical Problems: (1) H/O left inguinal hernia repair Status: Chronic (2) Hx of tonsillectomy Status: Chronic (3) Right shoulder surgery Status: Chronic Family History Depression MOTHER Diabetes mellitus MOTHER FH: alcoholism FATHER FH: aneurysm MOTHER FH: lung cancer GRANDMOTHER Suicide SISTER Social History Smoking Status: Current Every Day Smoker (currently smoking 0.5ppd, was smoking 4ppd x 40 years) Smokeless Tobacco Use: No Alcohol Use: none Drug Use: marijuana Marital Status: Housing status: lives with family Occupational Status: retired, other Immunizations History of Influenza Vaccine: Yes History of Tetanus Vaccine?: Yes History of Pneumococcal: No History of Hepatitis B Vaccine: No Allergies Coded Allergies: No Known Allergies (Verified , 09/24/17) Home Medications Scheduled Aspirin (Aspirin Ec), 81 MG PO DAILY Atorvastatin (Lipitor), 1 TAB PO DAILY Gabapentin (Neurontin), 300 MG PO TID Levothyroxine Sodium (Synthroid), 88 MCG PO DAILY Lisinopril (Prinivil), 20 MG PO DAILY Metformin Hcl (Glucophage), 1,000 MG PO BID Trazodone Hcl (Trazodone), 3 TAB PO HS Scheduled PRN Hydrocodone/Acetaminophen ([place] 10/325 Tab), 1 TAB PO Q6H PRN for Pain Review of Systems Constitutional: + chills (see HPI), No weight loss Eyes: No worsening of vision, No eye pain, No redness, No discharge, No diplopia ENT: No unusual epistaxis (see HPI), No trouble swallowing Respiratory: + cough, + shortness of breath, + problem reported (see HPI) Cardiovascular: + chest pain (see HPI), No orthopnea, No PND, No edema, No palpitations Abdomen: + problem reported (see HPI) Musculoskeletal: No calf pain Genitourinary - Male: No hematuria, No dysuria, No urinary frequency, No urinary urgency Psychiatric: + anxiety (reports stable), + insomnia (uses trazodone HS) Hematologic / Lymphatic: No abnormal bleeding/bruising, No clotting problems, No night sweats Integumentary: No rash, No itch Physical Exam Vital Signs Date Time Temp Pulse Resp B/P (MAP) Pulse Ox O2 Delivery O2 Flow Rate FiO2 09/24/17 12:11 93 Nasal Cannula 4.0 09/24/17 12:04 79 18 124/82 87 Room Air 09/24/17 11:38 Nasal Cannula 2.0 09/24/17 11:00 86 20 143/92 93 Nasal Cannula 2.0 09/24/17 10:11 78 19 149/98 96 Nasal Cannula 4.0 09/24/17 10:09 76 09/24/17 09:46 138 29 122/89 94 Nasal Cannula 4.0 09/24/17 09:39 82 24 151/104 96 Nasal Cannula 4.0 09/24/17 09:37 153/102 09/24/17 09:35 67 29 94 09/24/17 09:30 97 27 95 09/24/17 09:25 60 22 96 09/24/17 09:24 37.5 09/24/17 09:20 106 15 95 09/24/17 09:20 120 09/24/17 09:16 126/89 09/24/17 09:16 86 09/24/17 09:10 Nasal Cannula 4.0 09/24/17 09:09 146 09/24/17 09:02 160 22 147/84 92 Room Air General Appearance: WD/WN, no apparent distress Head: normocephalic, atraumatic Eyes: normal inspection, PERRL, EOMI, sclerae normal ENT: hearing grossly normal, pharynx normal, + pertinent finding (mucous membranes dry) Neck: supple, no JVD, trachea midline Respiratory/Chest: no respiratory distress, no accessory muscle use, + wheezing (+expiratory wheezing scattered throughout), + pertinent finding (+tenderness to palation bilateral and mid lower chest) Cardiovascular: regular rate, rhythm, no murmur, normal peripheral pulses Abdomen/GI: normal bowel sounds, soft, + pertinent finding (+tenderness to palpation across enitre upper abdomen without rebound or guarding) Back: no CVA tenderness Extremities/Musculoskelatal: no calf tenderness, normal capillary refill, no pedal edema, normal range of motion Neurologic/Psych: alert, normal mood/affect, oriented x 3 Skin: normal color, warm/dry Diagnostics Laboratory Results Results Past 24 Hours Test 09/24/17 09:10 09/24/17 09:20 09/24/17 09:35 Range/Units White Blood Count 11.43 4.8-10.8 K/uL Red Blood Count 6.34 4.7-6.1 M/uL Hemoglobin 20.8 14.0-18.0 g/dL Hematocrit 57.4 42-52 % Mean Corpuscular Volume 90.5 80-100 fL Mean Corpuscular Hemoglobin 32.8 25-34 pg Mean Corpuscular Hemoglobin Concent 36.2 32-36 g/dl Platelet Count 191 130-400 K/uL Mean Platelet Volume 10.4 7.4-10.4 fL Neutrophils (%) (Auto) 71.5 % Lymphocytes (%) (Auto) 14.2 % Monocytes (%) (Auto) 13.6 % Eosinophils (%) (Auto) 0.0 % Basophils (%) (Auto) 0.2 % Neutrophils # (Auto) 8.17 1.4-6.5 K/uL Lymphocytes # (Auto) 1.62 1.2-3.4 K/uL Monocytes # (Auto) 1.56 0.11-0.59 K/uL Eosinophils # (Auto) 0.00 0-0.5 K/uL Basophils # (Auto) 0.02 0-0.2 K/uL RDW Standard Deviation 46.2 36.4-46.3 fL RDW Coefficient of Variation 13.8 11.5-14.5 % Immature Granulocyte % (Auto) 0.5 % Immature Granulocyte # (Auto) 0.06 0.00-0.02 K/uL Prothrombin Time 10.7 9.0-12.0 SECONDS Prothromb Time International Ratio 1.0 0.9-1.1 Activated Partial Thromboplast Time 28.7 21.0-31.0 SECONDS Partial Thromboplastin Ratio 1.1 Sodium Level 134 136-145 mmol/L Potassium Level 3.4 3.5-5.1 mmol/L Chloride Level 97 98-107 mmol/L Carbon Dioxide Level 26 21-32 mmol/L Anion Gap 10.0 3-11 mmol/L Blood Urea Nitrogen 11 7-18 mg/dl Creatinine 1.28 0.60-1.40 mg/dl Est Creatinine Clear Calc Drug Dose 69.2 ml/min Estimated GFR () 70.5 Estimated GFR (Non- 60.9 BUN/Creatinine Ratio 8.9 10-20 Random Glucose 155 70-99 mg/dl Calcium Level 9.0 8.5-10.1 mg/dl Magnesium Level 2.0 1.8-2.4 mg/dl Total Bilirubin 0.6 0.2-1 mg/dl Direct Bilirubin 0.1 0-0.2 mg/dl Aspartate Amino Transf (AST/SGOT) 67 15-37 U/L Alanine Aminotransferase (ALT/SGPT) 123 12-78 U/L Alkaline Phosphatase 77 45-117 U/L Total Creatine Kinase 133 39-308 U/L Creatine Kinase MB 0.8 0.5-3.6 ng/ml Creatine Kinase MB Ratio 0.6 0-3.0 Troponin I < 0.015 0-0.045 ng/ml Pro-B-Type Natriuretic Peptide 415 0-900 pg/ml Total Protein 8.6 6.4-8.2 gm/dl Albumin 4.3 3.4-5.0 gm/dl Lipase 127 73-393 U/L Beta-Hydroxybutyric Acid 2.73 0.2-2.81 mg/dL Thyroid Stimulating Hormone (TSH) 1.350 0.300-4.500 uIu/ml Influenza Type A (RT-PCR) Neg for Influ A NEG Influenza Type B (RT-PCR) POS for Influ B NEG Venous Blood pH 7.40 7.36-7.41 Venous Blood Partial Pressure CO2 46 38.0-50.0 mmHg Venous Blood Partial Pressure O2 29 mmHg Venous Blood HCO3 27 mmol/L Venous Blood Oxygen Saturation < 60.0 % Venous Blood Base Excess 1.9 mEq/L Lactic Acid Level 1.7 0.4-2.0 mmol/L Microbiology Results 09/24/17 Blood Culture, Received Pending 09/24/17 Blood Culture, Received Pending Diagnostic Radiology CXR: IMPRESSION: Mild cardiomegaly with findings suggesting early interstitial edema CT ABD/PELVIS: IMPRESSION: 1. No acute process within the abdomen or pelvis. 2. Subpleural reticulation with mild traction bronchiectasis and probable honeycombing within the lingula which is consistent with interstitial lung disease with a UIP pattern. 3. Fatty liver. 4. Sigmoid diverticulosis without evidence for acute diverticulitis. 5. 3 cm infrarenal abdominal aortic aneurysm. No rupture. EKG 8:56 am EKG: SVT, rate 167 9:12AM EKG: sinus tachycardia, rate 113 Impression Assessment and Plan INFLUENZA B/ SOB/HYPOXIA Pt started with symptoms productive cough, SOB, myalgias, arthralgias, tactile fevers/chills. +Influenza B in ER. WBC: 11. 4. Normal lactic acid. CXR: no infiltrate. Noted 87%-92% on RA, increased to 96% on 4L NC. Pt given dose tamiflu, levaquin 750mg IV, solumedrol 125mg IV, duoneb, 1 L NSS in ER. Pt appears dehydrated and has moderate wheezing -sputum culture -IVF -tamiflu -solumedrol 20mg IV Q 8 H -xopenex 0.63 nebs with recent SVT -doxycycline IV at this time secondary to pt's nausea -repeat cbc in am SVT Pt noted to be in SVT, rate 140-170 in ER. Report that pt did vagal maneuver and converted to sinus rhythm. No medicine given. Pt denied noted palpitations, reported SOB. States decreased SOB since converted. Suspect from influenza, dehydrations -tele to monitor -repeat EKG in am, prn CP/palpitations CP: Negative initial troponin. Pt c/o lower CP started after coughing. +tenderness to palpation. Suspect musculoskeletal from coughing. -trend troponin -repeat EKG in am and prn increasing/changing CP or palpitations N/V/D, ABDOMINAL PAIN Started with onset of chills, myalgias, cough, SOB. Pt not eating and drinking past 2 days secondary to symptoms. Appears dehydrated. Suspect upper abdominal discomfort secondary to muscle discomfort with coughing. CT abd/pelvis:1. No acute process, Fatty liver, Sigmoid diverticulosis without evidence for acute diverticulitis, 3 cm infrarenal abdominal aortic aneurysm. No rupture. -suspect viral etiology -IVF -lorazepam 0.5mg IV Q6H prn N/V -clear liquids and progress to solids as tolerated HYPOKALEMIA K: 3.4. -NSS +40meq K at 100ml/hr -repeat prp in am HYPONATREMIA Na: 134 -IVF -repeat prp in am DM II Glucose: 155 -HA1c added for am -hold metformin -NovoLog sliding scale per protocol -Lantus 5U BID HYPOTHYROIDISM TSH: 1.3 -continue levothyroxine HTN stable at this time -hold lisinopril currently with pt dehydration, continue to monitor DYSLIPIDEMIA -continue statin ANXIETY/DEPRESSION/PTSD/INSOMNIA -continue trazodone HS CHRONIC BACK PAIN -continue gabapentin and hydrocodone prn pain TOBACCO ABUSE -nicotine patch -smoking cessation recommended DVT Prophylaxis -Lovenox SQ Disposition admit tele Full Code Follows with Dr Chaney for routine care Pt was seen with Dr Garcia. See addendum Resuscitation Status Full Code VTE Prophylaxis Will order VTE Prophylaxis: Yes Note ATTENDING ADDENDUM Record reviewed. Patient interviewed and examined. Care coordinated with Brittaney Taylor PA-C. Please refer to her documentation for patient's history. Previously, 57-year-old male with smoking history, hypertension, and other problems. Presented to ED with cough, shortness of breath, chest discomfort, nausea, vomiting. EXAM: General- no acute distress Lungs-scattered rhonchi, diffuse wheezing; no respiratory distress Cardiovascular- RRR; no JVD; no pretibial edema Abdomen- + bowel sounds, soft, nontender Extremities- no cyanosis; no calf tenderness Neuro- alert, oriented Skin- warm & dry DATA: Hemoglobin 20.8, white count 11,430, platelet count 191,000. Troponin less than 0.015. Nasopharyngeal swab for influenza positive for influenza B using PCR assay. Other lab studies as noted. Chest x-ray demonstrated cardiomegaly, interstitial prominence. CT of abdomen did not show any acute process. However, following abnormalities were noted by Radiology: "(1) subpleural reticulation with mild traction bronchiectasis and probable honeycombing within the lingula which is consistent with interstitial lung disease with a UIP pattern, (2) fatty liver, (3) 3 cm infrarenal abdominal aortic aneurysm" EKG performed at 0856 reviewed and demonstrated narrow complex tachycardia at 170/minute (SVT vs AF with RVR). EKG performed at 0912 reviewed and demonstrated sinus rhythm with runs of PAT. EKG performed at 1008 reviewed and demonstrated normal sinus rhythm at 80/minute , no acute changes. ASSESSMENT AND PLAN: INFLUENZA B Treat with oseltamivir. PRODUCTIVE COUGH Probably secondary to influenza, but may have secondary bacterial infection. No apparent infiltrates on chest x-ray. Check sputum culture. Received levofloxacin in the ED, but will not continue secondary to prolonged QTc. Treat with doxycycline. POSSIBLE INTERSTITIAL LUNG DISEASE Possible interstitial lung disease noted in lower lobes on CT of abdomen. Suggest outpatient follow-up with Pulmonary Medicine after resolution of acute illness. TACHYARRHYTHMIA Patient had a narrow complex tachycardia when he presented to the ED with ventricular rates in the range of 140-170. SVT versus atrial fibrillation versus PAT. Converted spontaneously to sinus rhythm with runs of PAT or PAF. Serum potassium 3.4. Magnesium and TSH normal. Patient was using an [id number] medication for his flu symptoms. Advised to avoid decongestants. Chest x-ray shows cardiomegaly. Check echocardiogram if not done recently. Consult Cardiology. CHEST PAIN Influenza with severe coughing or tachyarrhythmia may be contributing factors. Check serial cardiac markers. PROLONGED QTc Avoid QT prolonging medications. DM TYPE 2 Hold metformin during hospital stay. Check hemoglobin A1c. Lantus/NovoLog per protocol. AAA 3 cm AAA noted on CT of abdomen. Follow per guidelines. Please refer to ROXANNE Green's documentation for discussion of other issues. Juan Antonio Garcia MD . Additional Copies To Roseann Chaney M.D. (MEDICAL)
[2017-09-24] MEDS ORDERED: POTASSIUM CHLORIDE INJ 40 MEQ in SODIUM CHLORIDE 0.9% 1000ML 1,000 ML IV SCH (14:45)
[2017-09-24] MEDS ORDERED: LORAZEPAM INJ 0.5 MG in SYRINGE 0.75 ML IV PRN (14:45)
[2017-09-24] MEDS: GABAPENTIN 300 MG CAP PO SCH ×2 (15:29→21:17)
[2017-09-24] MEDS: NICOTINE 14 MG/24 HR TDSY TD SCH (15:29)
[2017-09-24 15:30] VITALS: BP 146/93; PULSE 74; TEMP 37.3; O2SAT 94
[2017-09-24] MEDS ORDERED: ENOXAPARIN 40 MG/0.4 ML SYR SC SCH (16:00)
[2017-09-24] MEDS ORDERED: IV FLUIDS COMPLETED PRN (16:15)
[2017-09-24] MEDS: INSULIN ASPART 100 UNITS/ML 3 ML PEN SC SCH ×2 (17:26→21:21)
[2017-09-24 19:17] VITALS: PULSE 74; O2SAT 95
[2017-09-24] MEDS: LEVALBUTEROL 0.63MG/3 ML NEB INH SCH (19:17)
[2017-09-24 20:07] VITALS: BP 148/84; PULSE 65; TEMP 36.7; O2SAT 93
[2017-09-24] MEDS: DOXYCYCLINE IV 100 MG in DEXTROSE 5% 100ML 100 ML IV SCH (21:11)
[2017-09-24] MEDS: HYDROCODONE/ACETAMI 10/325 TAB PO PRN (21:12)
[2017-09-24] MEDS: METHYLPREDNISOLONE IV 20 MG in SYRINGE 0 ML IV SCH (21:12)
[2017-09-24] MEDS: TRAZODONE HCL 50 MG TAB PO SCH (21:17)
[2017-09-24] MEDS: OSELTAMIVIR PHOSPHATE 75 MG CAP PO SCH (21:18)
[2017-09-24] MEDS: INSULIN GLARGINE SOLOSTAR 100 UNITS/ML 3 ML PEN SC SCH (21:22)
[2017-09-24 23:41] VITALS: BP 152/83; PULSE 72; TEMP 36.7; O2SAT 93
[2017-09-25] VITALS (14 sets, daily range): BP systolic 125–143; BP diastolic 72–87; PULSE 62–105; TEMP 36.5–37.1; O2SAT 91–100
[2017-09-25] MEDS: LEVALBUTEROL 0.63MG/3 ML NEB INH SCH ×5 (01:54→19:53)
[2017-09-25] MEDS: METOPROLOL TARTRATE 25 MG TAB PO SCH ×2 (03:39→13:05)
[2017-09-25] MEDS: HEPARIN 25,000 UNIT/500ML D5W 500 ML IV PRN ×3 (03:39→20:55)
[2017-09-25] MEDS: SODIUM CHLORIDE 0.9% 1000ML 1,000 ML IV SCH ×3 (03:40→19:52)
[2017-09-25] MEDS: METHYLPREDNISOLONE IV 20 MG in SYRINGE 0 ML IV SCH ×3 (06:12→22:13)
[2017-09-25] MEDS: LEVOTHYROXINE 88 MCG TAB PO SCH (06:13)
[2017-09-25] MEDS: HYDROCODONE/ACETAMI 10/325 TAB PO PRN ×2 (06:16→15:11)
[2017-09-25 08:04] LABS: CREATININE 0.91 mg/dl (0.60-1.40); POTASSIUM 3.8 mmol/L (3.5-5.1)
[2017-09-25 08:05] LABS: ALBUMIN 3.1 gm/dl (3.4-5.0); CALCIUM 8.1 mg/dl (8.5-10.1); TOTAL PROTEIN 6.8 gm/dl (6.4-8.2)
[2017-09-25] MEDS: ATORVASTATIN 40 MG TAB PO SCH (08:11)
[2017-09-25] MEDS: ASPIRIN 81 MG ECTAB PO SCH (08:11)
[2017-09-25] MEDS: OSELTAMIVIR PHOSPHATE 75 MG CAP PO SCH ×2 (08:11→20:38)
[2017-09-25] MEDS: NICOTINE 14 MG/24 HR TDSY TD SCH (08:11)
[2017-09-25] MEDS: GABAPENTIN 300 MG CAP PO SCH ×3 (08:12→20:38)
[2017-09-25] MEDS: INSULIN ASPART 100 UNITS/ML 3 ML PEN SC SCH ×4 (08:13→20:57)
[2017-09-25] MEDS: INSULIN GLARGINE SOLOSTAR 100 UNITS/ML 3 ML PEN SC SCH ×2 (08:14→20:56)
[2017-09-25 08:29] LABS: BASO % 0.1 %; BASO ABS # 0.01 K/uL (0-0.2); HEMATOCRIT 47.6 % (42-52); HEMOGLOBIN 16.5 g/dL (14.0-18.0); IG# 0.04 K/uL (0.00-0.02); LYMPH % 11.3 %; LYMPH ABS # 1.43 K/uL (1.2-3.4); MEAN CELL VOLUME 89.1 fL (80-100); MEAN CORPUSCULAR HEMOGLOBIN 30.9 pg (25-34); MEAN CORPUSCULAR HGB CONC 34.7 g/dl (32-36); MEAN PLATELET VOLUME 9.5 fL (7.4-10.4); MONO % 10.6 %; MONO ABS # 1.34 K/uL (0.11-0.59); NEUT % 77.7 %; NEUT ABS # 9.86 K/uL (1.4-6.5); PLATELET COUNT 183 K/uL (130-400); RED CELL DISTRIBUTION WIDTH CV 13.8 % (11.5-14.5); RED CELL DISTRIBUTION WIDTH SD 45.2 fL (36.4-46.3); WHITE BLOOD COUNT 12.68 K/uL (4.8-10.8)
[2017-09-25] MEDS: DOXYCYCLINE IV 100 MG in DEXTROSE 5% 100ML 100 ML IV SCH (08:51)
[2017-09-25 10:09] LABS: PTT PATIENT 45.5 SECONDS (21.0-31.0)
[2017-09-25] MEDS ORDERED: HEPARIN IV BOLUS 3,000 UNIT in SYRINGE 0 ML IV ONE (10:30)
[2017-09-25] MEDS ORDERED: VANCOMYCIN CONSULT ACTIVE PRN (11:30)
[2017-09-25] MEDS ORDERED: VANCOMYCIN IV 2,750 MG in SODIUM CHLORIDE 0.9% 500ML 500 ML IV STA (11:37)
--- NOTE | 2017-09-25 12:12 | Progress Note ---
Medicine Progress Note Date & Time of Visit: Sep 25, 2017 at 11:28. Subjective Pt was seen and examined Lying in bed with no distress Pt said that his breathing seems to improve He said that nausea improved and would like his diet to advance Denies any chest pain, palpitation, dizziness and SOB Objective Last 8 Hrs Date Time Temp Pulse Resp B/P (MAP) Pulse Ox O2 Delivery O2 Flow Rate FiO2 09/25/17 08:00 Room Air 09/25/17 07:33 75 16 97 Nasal Cannula 2.0 09/25/17 07:21 36.5 62 20 127/86 (100) 94 Nasal Cannula 2.0 09/25/17 04:04 37.1 100 18 129/76 (93) 91 2.0 09/25/17 04:00 Nasal Cannula 2.0 Physical Exam: General- No acute distress Head- atraumatic Eyes- PERRL, EOMI ENT- oropharynx clear Neck- supple, no JVD Lungs- Mild wheezing Heart- regular rhythm; no murmur Abdomen- normal bowel sounds, soft Extremities- No calf tenderness Neuro- alert, oriented x 3; PERRL, EOMI Skin- warm & dry Laboratory Results: Last 24 Hours Test 09/24/17 14:13 09/24/17 14:27 09/24/17 16:31 09/24/17 17:28 Troponin I < 0.015 ng/ml Bedside Glucose 210 mg/dl 232 mg/dl Urine Color YELLOW Urine Appearance CLEAR Urine pH 5.0 Urine Specific Gary 1.030 Urine Protein TRACE Urine Glucose (UA) 3+ Urine Ketones NEG Urine Occult Blood NEG Urine Nitrite NEG Urine Bilirubin NEG Urine Urobilinogen NEG Urine Leukocyte Esterase NEG Urine WBC (Auto) 0 /hpf Urine RBC (Auto) 0-4 /hpf Urine Hyaline Casts (Auto) 0 /lpf Urine Epithelial Cells (Auto) 0-5 /lpf Urine Bacteria (Auto) NEG Test 09/24/17 20:08 09/24/17 20:25 09/25/17 06:51 09/25/17 06:59 Bedside Glucose 219 mg/dl 167 mg/dl Troponin I < 0.015 ng/ml White Blood Count 12.68 K/uL Red Blood Count 5.34 M/uL Hemoglobin 16.5 g/dL Hematocrit 47.6 % Mean Corpuscular Volume 89.1 fL Mean Corpuscular Hemoglobin 30.9 pg Mean Corpuscular Hemoglobin Concent 34.7 g/dl Platelet Count 183 K/uL Mean Platelet Volume 9.5 fL Neutrophils (%) (Auto) 77.7 % Lymphocytes (%) (Auto) 11.3 % Monocytes (%) (Auto) 10.6 % Eosinophils (%) (Auto) 0.0 % Basophils (%) (Auto) 0.1 % Neutrophils # (Auto) 9.86 K/uL Lymphocytes # (Auto) 1.43 K/uL Monocytes # (Auto) 1.34 K/uL Eosinophils # (Auto) 0.00 K/uL Basophils # (Auto) 0.01 K/uL RDW Standard Deviation 45.2 fL RDW Coefficient of Variation 13.8 % Immature Granulocyte % (Auto) 0.3 % Immature Granulocyte # (Auto) 0.04 K/uL Sodium Level 135 mmol/L Potassium Level 3.8 mmol/L Chloride Level 103 mmol/L Carbon Dioxide Level 23 mmol/L Anion Gap 9.0 mmol/L Blood Urea Nitrogen 14 mg/dl Creatinine 0.91 mg/dl Est Creatinine Clear Calc Drug Dose 101.7 ml/min Estimated GFR () 106.5 Estimated GFR (Non- 91.9 BUN/Creatinine Ratio 15.4 Random Glucose 179 mg/dl Estimated Average Glucose 154 mg/dl Hemoglobin A1c 7.0 % Calcium Level 8.1 mg/dl Total Bilirubin 0.5 mg/dl Direct Bilirubin 0.1 mg/dl Aspartate Amino Transf (AST/SGOT) 30 U/L Alanine Aminotransferase (ALT/SGPT) 84 U/L Alkaline Phosphatase 56 U/L Total Protein 6.8 gm/dl Albumin 3.1 gm/dl Globulin 3.7 gm/dl Albumin/Globulin Ratio 0.8 Triglycerides Level 137 mg/dl Cholesterol Level 194 mg/dl HDL Cholesterol 31 mg/dl LDL Cholesterol, Calculated 137 mg/dl VLDL Cholesterol, Calculated 27 mg/dl Cholesterol/HDL Ratio 6.3 Test 09/25/17 09:40 Activated Partial Thromboplast Time 45.5 SECONDS Partial Thromboplastin Ratio 1.8 Date/Time Source Procedure Growth Status 09/24/17 15:00 Sputum Expectorated Sputum Gram Stain - Final Resulted 09/24/17 15:00 Sputum Expectorated Sputum Sputum Culture Pending Resulted Assessment & Plan SOB/HYPOXIA INFLUENZA A CXR showed no infiltrate Received Levaquin in the ER that was changed to Doxy due to QTC prolong Continue Tamiflu to complete 5 days course Continue solumedrol Continue neb treatment Continue oxygen Supplement Sputum cx pending Will D/C doxy for now since CXR showed no infiltrate If symptoms worsening or if sputum cx positive, will add abx SVT/AFIB HR btw 140-170 in ER. Converted back to sinus rhythm with vagal maneuver in the ER HR now in the low 100's Starting on heparin drip Cardiology on board Continue tele monitor ECHO pending Chest pain Possible related to cough Troponin negative No ischemic changes on EKG NAUSEA ASSOCIATED WITH ABDOMINAL PAIN Mostly related to acute illness CT abd/pelvis showed no acute process within the abdomen or pelvis. Received IVF Diet advanced as tolerated Diarrhea improves HYPOKALEMIA K stable Continue monitor BMP HYPONATREMIA Na: 135 Continue monitor BMP DM II Hba1c 7 Oral diabetes med on hold Continue Lantus 5U BID HYPOTHYROIDISM TSH: 1.3 Continue levothyroxine HTN Lisinopril on hold BP stable DYSLIPIDEMIA Continue statin ANXIETY/DEPRESSION/PTSD/INSOMNIA continue trazodone HS Stable CHRONIC BACK PAIN continue gabapentin and hydrocodone prn pain Stable TOBACCO ABUSE nicotine patch Counseling on smoking cessation DVT Prophylaxis Lovenox SQ Disposition Continue tele Code status Full Code Current Inpatient Medications: Current Inpatient Medications Medications (Trade) Dose Ordered Sig/Kimberly Route Start Time Stop Time Status Last Admin Dose Admin Ioversol (Optiray 320) 125 ml UD PRN IV 09/24/17 09:30 09/28/17 09:29 Acetaminophen (Tylenol Tab) 650 mg Q4H PRN PO 09/24/17 12:00 10/24/17 11:59 Nitroglycerin (Nitrostat Tab) 0.4 mg UD PRN SL 09/24/17 12:00 10/24/17 11:59 Polyethylene (Miralax Powder Packet) 17 gm DAILY PRN PO 09/24/17 12:00 10/24/17 11:59 Insulin Aspart (novoLOG ASPART) SLIDING SCALE If C... ACHS SC 09/24/17 16:15 10/24/17 16:14 09/25/17 08:13 3 UNITS Glucose (Glucose 40% Gel) 15-30 GRAMS 15 GRAMS... UD PRN PO 09/24/17 12:15 10/24/17 12:14 Glucose (Glucose Chew Tab) 4-8 Tablets 4 Tabl... UD PRN PO 09/24/17 12:15 10/24/17 12:14 Dextrose (Dextrose 50% 50ML Syringe) 25-50ML OF 50% DW IV FOR... UD PRN IV 09/24/17 12:15 10/24/17 12:14 Glucagon (Glucagon Inj) 1 mg UD PRN SQ 09/24/17 12:15 10/24/17 12:14 Nicotine (Nicoderm Cq 14MG Patch) 1 patch QAM TD 09/24/17 15:00 10/24/17 14:59 09/25/17 08:11 1 PATCH Miscellaneous (Remove Nicoderm Patch) 1 ea HS N/A 09/24/17 21:00 10/24/17 20:59 09/24/17 21:16 1 EA Oseltamivir Phosphate (Tamiflu Cap) 75 mg BID PO 09/24/17 21:00 09/29/17 08:59 09/25/17 08:11 75 MG Doxycycline Hyclate 100 mg/ Dextrose 110 ml @ 50 mls/hr BID IV 09/24/17 21:00 10/01/17 20:59 09/25/17 08:51 50 MLS/HR Levalbuterol (Xopenex 0.63 Mg/ 3 Ml Neb) 0.63 mg Q6R INH 09/24/17 15:00 10/24/17 14:59 09/25/17 07:29 0.63 MG Methylprednisolone Sodium Succinate 20 mg/Syringe 0.32 ml @ 1.5 mls/min Q8 IV 09/24/17 22:00 10/24/17 21:59 09/25/17 06:12 1.5 MLS/MIN Lorazepam (Ativan Inj) 0.5 mg Q6 PRN IV 09/24/17 12:30 10/24/17 12:29 Insulin Glargine (Lantus Solostar Pen) 5 units Q12 SC 09/24/17 21:00 10/24/17 20:59 09/25/17 08:14 5 UNITS Aspirin (Ecotrin Tab) 81 mg DAILY PO 09/25/17 09:00 10/25/17 08:59 09/25/17 08:11 81 MG Atorvastatin Calcium (Lipitor Tab) 40 mg DAILY PO 09/25/17 09:00 10/25/17 08:59 09/25/17 08:11 40 MG Gabapentin (Neurontin Cap) 300 mg TID PO 09/24/17 14:45 10/24/17 14:44 09/25/17 08:12 300 MG Acetaminophen/ Hydrocodone Bitart ([place] 10/325 Tab) 1 tab Q6H PRN PO 09/24/17 12:45 10/08/17 12:44 09/25/17 06:16 1 TAB Levothyroxine Sodium (Synthroid Tab) 88 mcg DAILYBB PO 09/25/17 06:00 10/25/17 05:59 09/25/17 06:13 88 MCG Trazodone HCl (Desyrel Tab) 150 mg HS PO 09/24/17 21:00 10/24/17 20:59 09/24/17 21:17 150 MG Lorazepam 0.5 mg/ Syringe 1 ml @ 1 mls/min Q6H PRN IV 09/24/17 14:45 10/24/17 14:44 Miscellaneous (Iv Fluids Completed) 1 ea PRN PRN N/A 09/24/17 16:15 09/24/18 16:14 Metoprolol Tartrate (Lopressor Tab) 25 mg Q8 PO 09/25/17 03:30 10/25/17 03:29 09/25/17 03:39 25 MG Heparin Sodium/ Dextrose 500 ml @ 31 mls/hr Q16H8M PRN IV 09/25/17 03:30 10/25/17 03:29 09/25/17 03:39 28 MLS/HR Sodium Chloride 1,000 ml @ 125 mls/hr Q8H IV 09/25/17 03:30 10/25/17 03:29 09/25/17 03:40 125 MLS/HR
--- NOTE | 2017-09-25 12:25 | Pharmacy Progress Note ---
Pharmacy Antibiotic Consult Date of Service: Sep 25, 2017. Pharmacy Dosing Scope Pharmacy is consulted to initiate vancomycin IV dosing therapy, order appropriate labs and adjust drug dose/frequency. Subjective The patient is a 57 year old male admitted on Sep 24, 2017 at 14:08. Objective Height (Feet): 5 Height (Inches): 8.00 Weight (Kilograms): 103.100 Lab Results (24hrs): Test 09/24/17 14:13 09/24/17 17:28 09/24/17 20:08 09/24/17 20:25 Troponin I < 0.015 ng/ml (0-0.045) < 0.015 ng/ml (0-0.045) Urine Color YELLOW Urine Appearance CLEAR (CLEAR) Urine pH 5.0 (4.5-7.5) Urine Specific [place] 1.030 (1.000-1.030) Urine Protein TRACE (NEG) Urine Glucose (UA) 3+ (NEG) Urine Ketones NEG (NEG) Urine Occult Blood NEG (NEG) Urine Nitrite NEG (NEG) Urine Bilirubin NEG (NEG) Urine Urobilinogen NEG (NEG) Urine Leukocyte Esterase NEG (NEG) Urine WBC (Auto) 0 /hpf (0-5) Urine RBC (Auto) 0-4 /hpf (0-4) Urine Hyaline Casts (Auto) 0 /lpf (0-5) Urine Epithelial Cells (Auto) 0-5 /lpf (0-5) Urine Bacteria (Auto) NEG (NEG) Bedside Glucose 219 mg/dl (70-99) Test 09/25/17 06:51 09/25/17 06:59 09/25/17 09:40 Bedside Glucose 167 mg/dl (70-99) White Blood Count 12.68 K/uL (4.8-10.8) Red Blood Count 5.34 M/uL (4.7-6.1) Hemoglobin 16.5 g/dL (14.0-18.0) Hematocrit 47.6 % (42-52) Mean Corpuscular Volume 89.1 fL (80-100) Mean Corpuscular Hemoglobin 30.9 pg (25-34) Mean Corpuscular Hemoglobin Concent 34.7 g/dl (32-36) Platelet Count 183 K/uL (130-400) Mean Platelet Volume 9.5 fL (7.4-10.4) Neutrophils (%) (Auto) 77.7 % Lymphocytes (%) (Auto) 11.3 % Monocytes (%) (Auto) 10.6 % Eosinophils (%) (Auto) 0.0 % Basophils (%) (Auto) 0.1 % Neutrophils # (Auto) 9.86 K/uL (1.4-6.5) Lymphocytes # (Auto) 1.43 K/uL (1.2-3.4) Monocytes # (Auto) 1.34 K/uL (0.11-0.59) Eosinophils # (Auto) 0.00 K/uL (0-0.5) Basophils # (Auto) 0.01 K/uL (0-0.2) RDW Standard Deviation 45.2 fL (36.4-46.3) RDW Coefficient of Variation 13.8 % (11.5-14.5) Immature Granulocyte % (Auto) 0.3 % Immature Granulocyte # (Auto) 0.04 K/uL (0.00-0.02) Sodium Level 135 mmol/L (136-145) Potassium Level 3.8 mmol/L (3.5-5.1) Chloride Level 103 mmol/L (98-107) Carbon Dioxide Level 23 mmol/L (21-32) Anion Gap 9.0 mmol/L (3-11) Blood Urea Nitrogen 14 mg/dl (7-18) Creatinine 0.91 mg/dl (0.60-1.40) Est Creatinine Clear Calc Drug Dose 101.7 ml/min Estimated GFR () 106.5 Estimated GFR (Non- 91.9 BUN/Creatinine Ratio 15.4 (10-20) Random Glucose 179 mg/dl (70-99) Estimated Average Glucose 154 mg/dl Hemoglobin A1c 7.0 % (4.5-5.6) Calcium Level 8.1 mg/dl (8.5-10.1) Total Bilirubin 0.5 mg/dl (0.2-1) Direct Bilirubin 0.1 mg/dl (0-0.2) Aspartate Amino Transf (AST/SGOT) 30 U/L (15-37) Alanine Aminotransferase (ALT/SGPT) 84 U/L (12-78) Alkaline Phosphatase 56 U/L (45-117) Total Protein 6.8 gm/dl (6.4-8.2) Albumin 3.1 gm/dl (3.4-5.0) Globulin 3.7 gm/dl (2.5-4.0) Albumin/Globulin Ratio 0.8 (0.9-2) Triglycerides Level 137 mg/dl (0-150) Cholesterol Level 194 mg/dl (0-200) HDL Cholesterol 31 mg/dl LDL Cholesterol, Calculated 137 mg/dl VLDL Cholesterol, Calculated 27 mg/dl Cholesterol/HDL Ratio 6.3 Activated Partial Thromboplast Time 45.5 SECONDS (21.0-31.0) Partial Thromboplastin Ratio 1.8 Assessment & Plan Assessment * 57 yo M admitted 2nd respiratory distress, found to have positive Influenza B PCR and started on Tamiflu. Also given levofloxacin to cover for superimposed bacterial PNA - this was switched to doxycycline 2nd prolonged QTc * Today, patient now with 1 of 2 blood cultures with GPC, growth initially identified ~24 hours after isolation. Vancomycin added. * Spoke w Dr. Hanna - confirmed OK to discontinue doxycycline at this time as superimposed bacterial PNA not likely (CXR w/o infiltrate and patient's breathing has improved clinically) Vancomycin * Goal vancomycin trough 15-20 mcg/mL * Loading dose of 26 mg/kg IV x1 * Maintenance dose of 12 mg/kg IV q8h * Will be slightly more aggressive with interval as GPC is in blood * Will be less aggressive with mg/kg dosing 2nd potential for accumulation in obesity * Trough prior to 4th overall dose Plan * Vancomycin 2750 mg IV x1 * Vancomycin 1250 mg IV q8h * Trough 09/26 @ 1130 Pharmacy will continue to follow and will adjust dose/frequency as necessary. Thank you
[2017-09-25 18:04] LABS: PTT PATIENT 63.2 SECONDS (21.0-31.0)
[2017-09-25] MEDS: VANCOMYCIN IV 1,250 MG in SODIUM CHLORIDE 0.9% 250ML 250 ML IV SCH (19:52)
[2017-09-25] MEDS ORDERED: DILTIAZEM BOLUS / DRIP IV STA (20:09)
[2017-09-25] MEDS ORDERED: WARFARIN SOD 5 MG TAB PO ONE (20:19)
--- NOTE | 2017-09-25 20:19 | Cardiology Consultation ---
Cardiology Consultation Date of Consultation: Sep 25, 2017 History of Present Illness Patient is a 57 year old male seen in cardiology consultation per the request of Dr Garcia for the evaluation of tachycardia. Patient presented to the ED on 09/24 complaining of illness that began 3 days prior with fever, myalgias, upset stomach and cough and shortness of breath. Prior to ED had felt progressive shortness of breath and chest tightness. Was initially found to have a narrow complex tachycardia that terminated spontaneously with vagal maneuver. Serial EKG tracings and telemetry document transition to atrial fibrillation. His ventricular rates remain elevated at 100- 135 bpm on oral metoprolol. Heparin gtt started already for stroke prevention. Testing has revealed influenza B, CT suggests interstitial lung disease with incidental finding of 3 cm AAA. [place] 1 blood culture has resulted with gram Positive cocci. Past Medical/Surgical History Problem List: Medical Problems: (1) Antisocial personality disorder (2) Anxiety (3) Biceps tendon rupture (4) Bipolar disorder, unspecified (5) Chronic back pain (6) Depression, major, recurrent, moderate (7) Diabetes (8) Diabetic neuropathy (9) Diverticulosis (10) Dyslipidemia (11) Headache (12) Hepatitis C (13) Homicidal ideation (14) Hypertension (15) Hypothyroid (16) Influenza (17) Nicotine abuse (18) SVT (supraventricular tachycardia) Surgical Problems: (1) H/O left inguinal hernia repair (2) Hx of tonsillectomy (3) Right shoulder surgery History Social History: every ginny smoker 1/2 ppd Family History: no family hx of arrhythmia or premature CAD Review Of Systems See above for pertinent positives & negatives. A total of 10 systems reviewed and were otherwise negative. Allergies Coded Allergies: No Known Allergies (Verified , 09/24/17) Medications Reported Home Medications Medications Dose Route/Sig Max Daily Dose Days Date Category Dose Instructions Trazodone (Trazodone HCl) 50 Mg Tab 3 Tab PO HS 09/24/17 Reported [place] 10/325 Tab (Acetaminophen/Hydrocodone Bitart) 1 Tab Tab 1 Tab PO Q6H PRN 09/24/17 Reported Glucophage (Metformin Hcl) 1,000 Mg Tab 1,000 Mg PO BID 09/24/17 Reported Lipitor (Atorvastatin Calcium) 40 Mg Tab 1 Tab PO DAILY 09/24/17 Reported Prinivil (Lisinopril) 20 Mg Tab 20 Mg PO DAILY 09/24/17 Reported Aspirin Ec (Aspirin) 81 Mg Tab 81 Mg PO DAILY 08/28/16 Reported Neurontin (Gabapentin) 100 Mg Cap 300 Mg PO TID 02/17/15 Reported PT TAKES 1-3 TABS DAILY Synthroid (Levothyroxine Sodium) 88 Mcg Tab 88 Mcg PO DAILY 03/31/13 Reported Physical Exam Vital Signs (Last 8hrs): Last 8 Hrs Date Time Temp Pulse Resp B/P (MAP) Pulse Ox O2 Delivery O2 Flow Rate FiO2 09/25/17 15:58 36.5 92 22 129/72 (91) 94 Nasal Cannula 2.0 09/25/17 15:19 Room Air 09/25/17 14:19 78 16 96 Nasal Cannula 2.0 09/25/17 12:14 92 18 94 Nasal Cannula 2.0 General Appearance: Alert and Oriented x3. NAD. Head: Normocephalic Atraumatic. Eyes: PERRLA, EOMI, conjunctiva and sclera clear Neck: Supple. No carotid bruits noted. No JVD. No HJD. Respiratory: Breath sounds clear to auscultation bilaterally. No w/r/r. Cardiovascular: irregular rhythm, tachycardic , no murmur Abdomen: Normal bowel sounds, soft nontender. no abdominal bruits. Extremities: No edema, no clubbing or cyanosis. distal pulses 2/4 bilaterally. Neuro: No focal deficits. Psychiatric: Normal affect. Data Last Resulted 09/25/17 06:59 Red Blood Count 5.34, Mean Corpuscular Volume 89.1, Mean Corpuscular Hemoglobin 30.9, Mean Corpuscular Hemoglobin Concent 34.7, Mean Platelet Volume 9.5, Neutrophils (%) (Auto) 77.7, Lymphocytes (%) (Auto) 11.3, Monocytes (%) (Auto) 10.6, Eosinophils (%) (Auto) 0.0, Basophils (%) (Auto) 0.1, Neutrophils # (Auto ) 9.86, Lymphocytes # (Auto) 1.43, Monocytes # (Auto) 1.34, Eosinophils # (Auto ) 0.00, Basophils # (Auto) 0.01 Last Resulted 09/25/17 06:59 Past 24 Hours Test 09/24/17 20:25 Range/Units Troponin I < 0.015 0-0.045 ng/ml Imaging: CT as above EKG: above, no significant ST changes. Telemetry reviewed: as above Assessment & Plan Impression 57 year old male 1. AF RVR 2. Influenza B, possible superimposed pneumonia Plan: Increase oral metoprolol to 25 mg Q 6 hours. Add diltiazem infusion. Continue heparin for stroke prophylaxis, start coumadin.
[2017-09-25] MEDS ORDERED: DILTIAZEM HCL 5 MG/ML 5 ML VIAL BOLUS/OMNI IV ONE (20:30)
[2017-09-25] MEDS ORDERED: DILTIAZEM HCL INJ 125 MG in DEXTROSE 5% 100ML IV PRN (20:30)
[2017-09-25] MEDS: TRAZODONE HCL 50 MG TAB PO SCH (20:38)
[2017-09-25] MEDS ORDERED: VANCOMYCIN IV 1,000 MG in SODIUM CHLORIDE 0.9% 250ML 250 ML IV SCH (21:00)
--- NOTE | 2017-09-25 22:41 | Progress Note ---
Internal Med Progress Note Date of Service: Sep 25, 2017. Provider Documentation: Made aware by RN of asymptomatic sinus pauses noted after IV Cardizem drip started. Hold IV Cardizem for now. Vital Signs: Date Time Temp Pulse Resp B/P (MAP) Pulse Ox O2 Delivery O2 Flow Rate FiO2 09/26/17 08:00 Room Air 09/26/17 07:32 36.8 59 18 149/88 (108) 90 Room Air 09/26/17 07:06 56 16 98 Nasal Cannula 2.0 09/26/17 04:03 Room Air 09/26/17 03:31 37.0 68 18 117/71 (86) 93 09/26/17 02:05 56 16 97 Nasal Cannula 2.0 09/26/17 00:05 36.7 85 18 126/72 (90) 95 09/26/17 00:01 Room Air 09/25/17 22:48 91 130/81 (97) 09/25/17 21:47 94 130/87 (101) 09/25/17 21:32 78 141/84 (103) 09/25/17 21:17 93 143/82 (102) 09/25/17 20:23 36.5 82 20 125/81 (96) 94 Nasal Cannula 2.0 09/25/17 20:00 Room Air 09/25/17 15:58 36.5 92 22 129/72 (91) 94 Nasal Cannula 2.0 09/25/17 15:19 Room Air 09/25/17 14:19 78 16 96 Nasal Cannula 2.0 09/25/17 12:14 92 18 94 Nasal Cannula 2.0 09/25/17 12:00 Room Air 09/25/17 11:41 36.6 82 18 131/83 (99) 91 Room Air Lab Results: Results Past 24 Hours Test 09/25/17 11:39 09/25/17 16:26 09/25/17 17:23 09/25/17 20:30 Range/Units Bedside Glucose 208 164 196 70-99 mg/dl Activated Partial Thromboplast Time 63.2 21.0-31.0 SECONDS Partial Thromboplastin Ratio 2.4 Test 09/25/17 22:57 09/26/17 06:54 09/26/17 07:33 Range/Units Sodium Level 135 135 136-145 mmol/L Potassium Level 4.2 4.3 3.5-5.1 mmol/L Chloride Level 103 103 98-107 mmol/L Carbon Dioxide Level 25 26 21-32 mmol/L Anion Gap 7.0 6.0 3-11 mmol/L Blood Urea Nitrogen 22 20 7-18 mg/dl Creatinine 1.16 1.05 0.60-1.40 mg/dl Est Creatinine Clear Calc Drug Dose 79.8 89.3 ml/min Estimated GFR () 79.4 89.6 Estimated GFR (Non- 68.5 77.3 BUN/Creatinine Ratio 18.8 18.9 10-20 Random Glucose 192 156 70-99 mg/dl Calcium Level 8.0 7.8 8.5-10.1 mg/dl Magnesium Level 2.3 1.8-2.4 mg/dl Bedside Glucose 167 70-99 mg/dl White Blood Count 14.29 4.8-10.8 K/uL Red Blood Count 5.02 4.7-6.1 M/uL Hemoglobin 15.4 14.0-18.0 g/dL Hematocrit 45.6 42-52 % Mean Corpuscular Volume 90.8 80-100 fL Mean Corpuscular Hemoglobin 30.7 25-34 pg Mean Corpuscular Hemoglobin Concent 33.8 32-36 g/dl RDW Standard Deviation 46.4 36.4-46.3 fL RDW Coefficient of Variation 14.0 11.5-14.5 % Platelet Count 193 130-400 K/uL Mean Platelet Volume 10.0 7.4-10.4 fL Prothrombin Time 10.5 9.0-12.0 SECONDS Prothromb Time International Ratio 1.0 0.9-1.1 Activated Partial Thromboplast Time 60.9 21.0-31.0 SECONDS Partial Thromboplastin Ratio 2.3 Microbiology Results 09/25/17 Blood Culture, Received Pending 09/25/17 Blood Culture, Received Pending
[2017-09-25] MEDS ORDERED: POTASSIUM CHLORIDE 10 MEQ TABCR PO ONE (23:00)
[2017-09-25 23:33] LABS: CREATININE 1.16 mg/dl (0.60-1.40); POTASSIUM 4.2 mmol/L (3.5-5.1)
[2017-09-26] VITALS (10 sets, daily range): BP systolic 117–149; BP diastolic 71–91; PULSE 56–85; TEMP 36.4–37; O2SAT 90–98
[2017-09-26] MEDS: METOPROLOL TARTRATE 25 MG TAB PO SCH ×4 (00:31→18:11)
[2017-09-26] MEDS: HYDROCODONE/ACETAMI 10/325 TAB PO PRN ×3 (00:38→21:55)
[2017-09-26] MEDS: LEVALBUTEROL 0.63MG/3 ML NEB INH SCH ×4 (02:04→18:59)
[2017-09-26] MEDS: SODIUM CHLORIDE 0.9% 1000ML 1,000 ML IV SCH ×2 (04:09→11:30)
[2017-09-26] MEDS: VANCOMYCIN IV 1,250 MG in SODIUM CHLORIDE 0.9% 250ML 250 ML IV SCH (04:10)
[2017-09-26] MEDS: METHYLPREDNISOLONE IV 20 MG in SYRINGE 0 ML IV SCH ×3 (06:18→20:37)
[2017-09-26] MEDS: LEVOTHYROXINE 88 MCG TAB PO SCH (06:18)
--- NOTE | 2017-09-26 06:39 | Clinical Documentation Query ---
HAYDER Hamm : CLINICAL DOCUMENTATION QUERIES QUERY 1 OF 3 Patient is a 57 year old male admitted for evaluation of sudden onset of diffuse myalgias and arthralgias, chills, sweats, productive cough of green/yellow sputum. Patient also started with dizziness, nausea, vomiting with drinking or eating, diarrhea x4-5 episodes. Upon arrival to ER patient was noted to be in SVT 140s-170. Patient converted prior to adenosine being given. On presentation, respirations to 29/minute, 87% on room air, improved to 96% on 4L nasal cannula. ED provider noted "Patient is in obvious distress, tachypneic and use of accessory muscles noted". In your clinical opinion is this patient being managed for: ( x ) Acute respiratory failure with hypoxia, POA, resolved ( ) Not Agree ( ) Other explanation of clinical findings (Please Explain) ( ) Unable to determine (Please Define) ( ) Need to Discuss The medical record reflects the following clinical findings, treatment, and risk factors. Clinical Indicators: As above Treatment: Supplemental O2, IVF, Solumedrol, nebs, cultures Risk Factors:COPD, Influenza QUERY 2 OF 3 As above, noted SOB, diffuse wheezing, tachypnea in the setting of influenza on the background of COPD. In your clinical opinion is this patient being managed for: ( ) COPD exacerbation ( ) Not Agree ( ) Other explanation of clinical findings (Please Explain) ( ) Unable to determine (Please Define) ( ) Need to Discuss The medical record reflects the following clinical findings, treatment, and risk factors. Clinical Indicators: As above Treatment: Solumedrol, nebs, supplemental oxygen, IV Levaquin Risk Factors: Influenza infection QUERY 3 OF 3 Influenza PCR positive for influenza B, negative for influenza A. Contradictory documentation exists regarding this diagnosis. Please clarify as clinically appropriate. Thank you. In your clinical opinion is this patient being managed for: ( ) Influenza B ( ) Not Agree ( ) Other explanation of clinical findings (Please Explain) ( ) Unable to determine (Please Define) ( ) Need to Discuss The medical record reflects the following clinical findings, treatment, and risk factors. Clinical Indicators: As above Treatment: Tamiflu Please clarify and document your clinical opinion in the progress notes and discharge summary. Terms such as "probable", "suspected", "likely", "questionable", "possible", or "still to be ruled out" are acceptable. IF IN AGREEMENT, YOU MUST DOCUMENT ABOVE DIAGNOSTIC STATEMENT IN DAILY PROGRESS NOTES AND DISCHARGE SUMMARY. This document is not part of the patient's record. Thank You, Kev Oviedo, RN [phone]
[2017-09-26 07:53] LABS: HEMATOCRIT 45.6 % (42-52); HEMOGLOBIN 15.4 g/dL (14.0-18.0); MEAN CELL VOLUME 90.8 fL (80-100); MEAN CORPUSCULAR HEMOGLOBIN 30.7 pg (25-34); MEAN CORPUSCULAR HGB CONC 33.8 g/dl (32-36); PLATELET COUNT 193 K/uL (130-400); RED CELL DISTRIBUTION WIDTH SD 46.4 fL (36.4-46.3); WHITE BLOOD COUNT 14.29 K/uL (4.8-10.8)
[2017-09-26 08:11] LABS: PTT PATIENT 60.9 SECONDS (21.0-31.0)
[2017-09-26 08:20] LABS: CALCIUM 7.8 mg/dl (8.5-10.1); CREATININE 1.05 mg/dl (0.60-1.40); POTASSIUM 4.3 mmol/L (3.5-5.1)
[2017-09-26] MEDS: INSULIN GLARGINE SOLOSTAR 100 UNITS/ML 3 ML PEN SC SCH ×2 (08:28→20:41)
[2017-09-26] MEDS: INSULIN ASPART 100 UNITS/ML 3 ML PEN SC SCH ×4 (08:28→20:42)
[2017-09-26] MEDS: OSELTAMIVIR PHOSPHATE 75 MG CAP PO SCH ×2 (08:29→20:37)
[2017-09-26] MEDS: GABAPENTIN 300 MG CAP PO SCH ×3 (08:29→20:37)
[2017-09-26] MEDS: NICOTINE 14 MG/24 HR TDSY TD SCH (08:30)
[2017-09-26] MEDS: ATORVASTATIN 40 MG TAB PO SCH (08:30)
[2017-09-26] MEDS: ASPIRIN 81 MG ECTAB PO SCH (08:30)
--- NOTE | 2017-09-26 08:57 | ECHOCARDIOGRAM REPORT ---
*NOTICE TO RECEIVING [employer] This information is strictly Confidential and protected under [place] law. [place] law prohibits you from making any further disclosure of this information unless further disclosure is expressly permitted by the written consent of the person to whom it pertains or is authorized by law. A general authorization for the release of medical or other information is not sufficient for this purpose. Hospital accepts no responsibility if the information is made available to any other person, INCLUDING THE PATIENT. Interpretation Summary * Name: JASON EVANS Study Date: 09/26/2017 06:09 AM BP: 117/71 mmHg * Patient Location: S244 HR: 60 * : 1960 (M/d/yyyy) Gender: Male Height: 68 in * Age: 57 yrs Ethnicity: CA Weight: 207 lb * Ordering Physician: AYAAN MARTINEZ MD * Performed By: Savannah Etienne RCS * * Reason For Study: CARDIOMEGALY * BSA: 2.1 m2 * The study was technically adequate. * -- Conclusions -- * Sinus bradycardia was present during the echocardiogram. * The left ventricular wall motion is normal. * There is mild concentric left ventricular hypertrophy. * The LV Ejection Fraction = 60-65%. * Aortic valve sclerosis mild, without significant aortic valvular stenosis. * There is mild mitral regurgitation. * Grade I diastolic dysfunction, (abnormal relaxation pattern). Procedure Details * A complete two-dimensional transthoracic echocardiogram was performed (2D, M-mode, Doppler and color flow Doppler). Left Ventricle * The left ventricle is normal in size. * There is mild concentric left ventricular hypertrophy. * Left ventricular systolic function is normal. * Ejection Fraction = 60-65%. * The left ventricular wall motion is normal. Right Ventricle * The right ventricle is normal size. * The right ventricular systolic function is normal as assessed by tricuspid annular plane systolic excursion (TAPSE) (normal >1.5 cm). Atria * The left atrial size is normal. * Right atrial size is normal. * There is no evidence of atrial septal defect, but resolution does not allow assessment for a patent foramen ovale. Mitral Valve * The mitral valve is normal. * There is no mitral valve stenosis. * There is mild mitral regurgitation. Tricuspid Valve * The tricuspid valve is normal. * There is no tricuspid stenosis. * Significant tricuspid regurgitation is absent. Aortic Valve * The aortic valve is trileaflet. * Aortic valve sclerosis mild, without significant aortic valvular stenosis. * Aortic stenosis is absent. * There is no significant aortic regurgitation. Pulmonic Valve * The pulmonary valve is not well seen, but the Doppler examination is normal without significant regurgitation or stenosis. Great Vessels * The aortic root and proximal ascending aorta are normal sized. Pericardium/Pleural * There is no pericardial effusion. Great Vessels * Normal inferior vena cava diameter and respiratory variation suggests normal central venous pressure. Left Ventricular Diastolic Function * Grade I diastolic dysfunction, (abnormal relaxation pattern). MMode 2D Measurements and Calculations IVSd 1.5 cm IVSs 1.8 cm LVIDd 3.6 cm LVIDs 2.6 cm LVPWd 1.4 cm LVPWs 1.2 cm IVS/LVPW 1.0 FS 26.9 % EDV(Teich) 55.2 ml ESV(Teich) 25.7 ml EF(Teich) 53.5 % EDV(cubed) 47.5 ml ESV(cubed) 18.5 ml EF(cubed) 61.0 % % IVS thick 20.6 % % LVPW thick -15.37 % LV mass(C)d 191.8 grams LV mass(C)dI 92.5 grams/m\S\2 LV mass(C)s 133.6 grams LV mass(C)sI 64.4 grams/m\S\2 SV(Teich) 29.5 ml SI(Teich) 14.2 ml/m\S\2 SV(cubed) 29.0 ml SI(cubed) 14.0 ml/m\S\2 Ao root diam 3.6 cm Ao root area 10.1 cm\S\2 ACS 2.2 cm LA dimension 3.7 cm LA/Ao 1.0 LVOT diam 2.0 cm LVOT area 3.2 cm\S\2 LVAd ap4 32.9 cm\S\2 LVLd ap4 7.4 cm EDV(MOD-sp4) 116.6 ml EDV(sp4-el) 123.4 ml LVAs ap4 19.8 cm\S\2 LVLs ap4 6.4 cm ESV(MOD-sp4) 50.0 ml ESV(sp4-el) 52.2 ml EF(MOD-sp4) 57.1 % EF(sp4-el) 57.7 % LVAd ap2 36.5 cm\S\2 LVLd ap2 9.0 cm EDV(MOD-sp2) 121.1 ml EDV(sp2-el) 125.2 ml LVAs ap2 23.2 cm\S\2 LVLs ap2 7.5 cm ESV(MOD-sp2) 59.7 ml ESV(sp2-el) 60.3 ml EF(MOD-sp2) 50.7 % EF(sp2-el) 51.8 % LVLd %diff 17.5 % EDV(MOD-bp) 128.1 ml LVLs %diff 15.6 % ESV(MOD-bp) 58.6 ml EF(MOD-bp) 54.3 % SV(MOD-sp4) 66.6 ml SI(MOD-sp4) 32.1 ml/m\S\2 SV(MOD-sp2) 61.4 ml SI(MOD-sp2) 29.6 ml/m\S\2 SV(MOD-bp) 69.6 ml SI(MOD-bp) 33.5 ml/m\S\2 SV(sp4-el) 71.2 ml SI(sp4-el) 34.3 ml/m\S\2 SV(sp2-el) 64.9 ml SI(sp2-el) 31.3 ml/m\S\2 Doppler Measurements and Calculations MV E max pradeep 84.7 cm/sec MV A max pradeep 45.3 cm/sec MV E/A 1.9 MV P1/2t max pradeep 94.0 cm/sec MV P1/2t 72.5 msec MVA(P1/2t) 3.0 cm\S\2 MV dec slope 379.8 cm/sec\S\2 MV dec time 0.17 sec Ao V2 max 88.0 cm/sec Ao max PG 3.1 mmHg Ao max PG (full) 0.78 mmHg AMAYA(V,A) 2.8 cm\S\2 AMAYA(V,D) 2.8 cm\S\2 LV V1 max PG 2.3 mmHg LV V1 max 76.0 cm/sec PA V2 max 56.1 cm/sec PA max PG 1.3 mmHg PI max pradeep 167.4 cm/sec PI max PG 11.2 mmHg PI dec slope 181.8 cm/sec\S\2 PI P1/2t 269.7 msec TR max pradeep 251.9 cm/sec
--- NOTE | 2017-09-26 11:06 | Progress Note ---
Progress Note Date of Service Sep 26, 2017. Progress Note ID Consult Dictated #[id number] A/P: 1. Influenza B 2. + Blood cultures 3. Leukocytosis - likely multifactorial, infection and steroids -Continue Tamiflu x 5 days, droplet precaution -Follow final ID staph species, repeat pending, continue vanco for now -Will follow, thank you
--- NOTE | 2017-09-26 11:22 | INFECT. DISEASE CONSULTATION ---
DATE OF CONSULTATION: 09/26/2017 HISTORY OF PRESENT ILLNESS: This is a 57-year-old gentleman who was admitted to the hospital with sudden onset of myalgias, arthralgias, fevers, chills and productive cough. He did have a flu swab in the Emergency Room, which was positive for influenza B. He was started on Tamiflu and is tolerating this well. As part of his initial workup, blood cultures were obtained and are growing a staph species, which is yet to be identified. Repeat blood cultures were obtained yesterday and are pending. A sputum culture was obtained on the and is growing only normal julissa. His chest x-ray was negative in the ER. A CAT scan of the abdomen and pelvis was also obtained and is negative. He did have an initial leukocytosis of 11, which has increased to 14. He has been on vancomycin and Tamiflu and is tolerating these well. He has been afebrile since admission. An echocardiogram was done today and was negative for vegetation. Today, he states overall he is feeling better, but still continues to feel generally fatigued. He states he is having wheezing. His cough is less. He denies any fevers or chills currently. He does have a history of psoriasis for which he intermittently takes methotrexate. He also states he had an infection [place] the 70[place] and he feels that this recurs from time to time. He currently denies any chest pain. He denies any hemoptysis. He denies any nausea, vomiting or diarrhea. He was taking prednisone at home prior to admission. His remaining review of systems is unremarkable. PAST MEDICAL HISTORY: Significant for anxiety, PTSD, depression, high cholesterol, hypertension, type 2 diabetes, hypothyroidism, back pain, diabetic retinopathy, diverticulosis, history of hepatitis C. It is unclear if this is the blood infection that he is referring to. PAST SURGICAL HISTORY: Significant for inguinal hernia repair, tonsillectomy and shoulder surgery. FAMILY HISTORY: Noncontributory. SOCIAL HISTORY: Significant for daily tobacco use. He does use marijuana. He denies any other drug use. He denies any alcohol use. He denies any recent sick contacts. ALLERGIES: He has no known drug allergies. CURRENT MEDICATIONS: Include Coumadin, Lopressor, vancomycin, aspirin, Lipitor, Synthroid, subQ heparin, Solu-Medrol, nicotine patch, Tamiflu, Lantus, trazodone, Topamax, Neurontin, Ativan, Percocet, Tylenol, and MiraLax. PHYSICAL EXAMINATION: VITAL SIGNS: He is currently afebrile, pulse 59, respiratory rate 18, blood pressure 149/88, oxygen saturation is 98% on 2 liters. GENERAL: He is awake, alert and oriented x3. He is in no acute distress. HEENT: Mucous membranes are moist. Extraocular muscles are intact. HEART: Regular. LUNGS: Found to have bilateral wheezing. ABDOMEN: Soft and nondistended. There is no edema. LABORATORY STUDIES: CBC reveals a white blood cell count of 14.2, hemoglobin 15.4, platelets are 193. Chemistry panel reveals a sodium of 135, potassium 4.3, chloride 103, bicarbonate 26, BUN 20, creatinine 1, glucose 156. UA negative. LFTs were normal on the . Again, flu swab is positive for influenza B. Blood cultures from the are growing staph species, which is yet to be identified. Sputum culture has normal julissa. Repeat blood cultures are pending. IMAGING: As above. ASSESSMENT AND PLAN: 1. Influenza B. 2. Positive blood cultures of unclear significance, awaiting final determination. 3. Leukocytosis, likely steroid induced. At this time, he will remain on vancomycin as well as Tamiflu. Repeat blood cultures are pending. Echocardiogram is negative. A final recommendation on antibiotics will be dependent upon the final identification of staph species and blood cultures. Thank you for this consultation.
[2017-09-26] MEDS ORDERED: VANCOMYCIN TROUGH ONE (11:30)
--- NOTE | 2017-09-26 13:54 | Pharmacy Progress Note ---
Pharmacy Antibiotic Prog Note Date of Service Sep 26, 2017. Subjective The patient is currently receiving vancomycin 1250 mg IV every 8 hours. The patient is currently on day # 2 of vancomycin IV therapy. Objective Height (Feet): 5 Height (Inches): 8.00 Weight (Kilograms): 105.900 Levels: Item Value Date Time Vancomycin Level Trough 24.5 mcg/ml 09/26/17 1126 Previous dose hung 09/26 @0410. Lab Results (24hrs): Test 09/25/17 17:23 09/25/17 20:30 09/25/17 22:57 09/26/17 06:54 Activated Partial Thromboplast Time 63.2 SECONDS (21.0-31.0) Partial Thromboplastin Ratio 2.4 Bedside Glucose 196 mg/dl (70-99) 167 mg/dl (70-99) Sodium Level 135 mmol/L (136-145) Potassium Level 4.2 mmol/L (3.5-5.1) Chloride Level 103 mmol/L (98-107) Carbon Dioxide Level 25 mmol/L (21-32) Anion Gap 7.0 mmol/L (3-11) Blood Urea Nitrogen 22 mg/dl (7-18) Creatinine 1.16 mg/dl (0.60-1.40) Est Creatinine Clear Calc Drug Dose 79.8 ml/min Estimated GFR () 79.4 Estimated GFR (Non- 68.5 BUN/Creatinine Ratio 18.8 (10-20) Random Glucose 192 mg/dl (70-99) Calcium Level 8.0 mg/dl (8.5-10.1) Magnesium Level 2.3 mg/dl (1.8-2.4) Test 09/26/17 07:33 09/26/17 11:26 White Blood Count 14.29 K/uL (4.8-10.8) Red Blood Count 5.02 M/uL (4.7-6.1) Hemoglobin 15.4 g/dL (14.0-18.0) Hematocrit 45.6 % (42-52) Mean Corpuscular Volume 90.8 fL (80-100) Mean Corpuscular Hemoglobin 30.7 pg (25-34) Mean Corpuscular Hemoglobin Concent 33.8 g/dl (32-36) RDW Standard Deviation 46.4 fL (36.4-46.3) RDW Coefficient of Variation 14.0 % (11.5-14.5) Platelet Count 193 K/uL (130-400) Mean Platelet Volume 10.0 fL (7.4-10.4) Prothrombin Time 10.5 SECONDS (9.0-12.0) Prothromb Time International Ratio 1.0 (0.9-1.1) Activated Partial Thromboplast Time 60.9 SECONDS (21.0-31.0) Partial Thromboplastin Ratio 2.3 Sodium Level 135 mmol/L (136-145) Potassium Level 4.3 mmol/L (3.5-5.1) Chloride Level 103 mmol/L (98-107) Carbon Dioxide Level 26 mmol/L (21-32) Anion Gap 6.0 mmol/L (3-11) Blood Urea Nitrogen 20 mg/dl (7-18) Creatinine 1.05 mg/dl (0.60-1.40) Est Creatinine Clear Calc Drug Dose 89.3 ml/min Estimated GFR () 89.6 Estimated GFR (Non- 77.3 BUN/Creatinine Ratio 18.9 (10-20) Random Glucose 156 mg/dl (70-99) Calcium Level 7.8 mg/dl (8.5-10.1) Vancomycin Level Trough 24.5 mcg/ml (SEE COMMENT) Micro Results: 09/24 blood #1 Staph spp x2, ID and sens pending 09/24 blood #2 GPC ID and sens pending 09/24 sputum moderate normal julissa 09/24 serology (+) influenza B 09/26 blood x2 pending Recent Pertinent Medications Item Value Date Time Vancomycin HCl 530 ml @ 200 mls/hr 09/26/17 1800 1500 mg/Sodium Q12@0600,1800/IV Chloride Vancomycin HCl 275 ml @ 125 mls/hr 09/25/17 2000 1250 mg/Sodium Q8@0400,1200,2000/IV 09/26/17 0410 Chloride Vancomycin HCl 555 ml @ 200 mls/hr 09/25/17 1137 2750 mg/Sodium NOW STAT/IV 09/25/17 1158 Chloride Oseltamivir 75 mg 09/24/17 2100 Phosphate BID/PO 09/26/17 0829 (Tamiflu Cap) Doxycycline 110 ml @ 50 mls/hr 09/24/17 2100 Hyclate 100 mg/ BID/IV 09/25/17 0851 Dextrose Oseltamivir 75 mg 09/24/17 1026 Phosphate NOW STAT/PO 09/24/17 1127 (Tamiflu Cap) Levofloxacin 750 mg 09/24/17 1026 (Levaquin / D5W) NOW STAT/IV 09/24/17 1128 Assessment & Plan This drug level is: slightly Supratherapeutic. Will extend dosing interval and decrease total daily dose. Change to vancomycin 1500 mg IV every 12 hours. Goal trough level estimate: between 15-20 mcg/mL. Trough has been ordered for: 09/28/17 before 0600 dose to monitor for accumulation. Pharmacy will continue to follow and will adjust dose/frequency as necessary. Thank you
[2017-09-26] MEDS: HEPARIN 25,000 UNIT/500ML D5W 500 ML IV PRN (14:00)
[2017-09-26] MEDS ORDERED: NURSING VERBAL MED ORDER ONE (14:15)
--- NOTE | 2017-09-26 15:43 | Progress Note ---
Medicine Progress Note Date & Time of Visit: Sep 26, 2017 at 15:29. Subjective Pt was seen and examined Lying in bed with no distress Pt said that he starting to feel a little better he said that he has been coughing up phlegm Denies any chest pain, palpitation, dizziness and fever Objective Last 8 Hrs Date Time Temp Pulse Resp B/P (MAP) Pulse Ox O2 Delivery O2 Flow Rate FiO2 09/26/17 14:35 58 16 98 Room Air 09/26/17 12:00 Room Air 09/26/17 11:47 36.4 64 20 131/85 (100) 91 09/26/17 08:00 Room Air 09/26/17 07:32 36.8 59 18 149/88 (108) 90 Room Air Physical Exam: General- No acute distress Head- atraumatic Eyes- PERRL, EOMI ENT- oropharynx clear Neck- supple, no JVD Lungs- +wheezing Heart- regular rhythm; no murmur Abdomen- normal bowel sounds, soft Extremities- No calf tenderness Neuro- alert, oriented x 3; PERRL, EOMI Skin- warm & dry Laboratory Results: Last 24 Hours Test 09/25/17 16:26 09/25/17 17:23 09/25/17 20:30 09/25/17 22:57 Bedside Glucose 164 mg/dl 196 mg/dl Activated Partial Thromboplast Time 63.2 SECONDS Partial Thromboplastin Ratio 2.4 Sodium Level 135 mmol/L Potassium Level 4.2 mmol/L Chloride Level 103 mmol/L Carbon Dioxide Level 25 mmol/L Anion Gap 7.0 mmol/L Blood Urea Nitrogen 22 mg/dl Creatinine 1.16 mg/dl Est Creatinine Clear Calc Drug Dose 79.8 ml/min Estimated GFR () 79.4 Estimated GFR (Non- 68.5 BUN/Creatinine Ratio 18.8 Random Glucose 192 mg/dl Calcium Level 8.0 mg/dl Magnesium Level 2.3 mg/dl Test 09/26/17 06:54 09/26/17 07:33 09/26/17 11:26 09/26/17 11:47 Bedside Glucose 167 mg/dl 180 mg/dl White Blood Count 14.29 K/uL Red Blood Count 5.02 M/uL Hemoglobin 15.4 g/dL Hematocrit 45.6 % Mean Corpuscular Volume 90.8 fL Mean Corpuscular Hemoglobin 30.7 pg Mean Corpuscular Hemoglobin Concent 33.8 g/dl RDW Standard Deviation 46.4 fL RDW Coefficient of Variation 14.0 % Platelet Count 193 K/uL Mean Platelet Volume 10.0 fL Prothrombin Time 10.5 SECONDS Prothromb Time International Ratio 1.0 Activated Partial Thromboplast Time 60.9 SECONDS Partial Thromboplastin Ratio 2.3 Sodium Level 135 mmol/L Potassium Level 4.3 mmol/L Chloride Level 103 mmol/L Carbon Dioxide Level 26 mmol/L Anion Gap 6.0 mmol/L Blood Urea Nitrogen 20 mg/dl Creatinine 1.05 mg/dl Est Creatinine Clear Calc Drug Dose 89.3 ml/min Estimated GFR () 89.6 Estimated GFR (Non- 77.3 BUN/Creatinine Ratio 18.9 Random Glucose 156 mg/dl Calcium Level 7.8 mg/dl Vancomycin Level Trough 24.5 mcg/ml Date/Time Source Procedure Growth Status 09/25/17 20:49 Blood Blood Culture Pending Received 09/25/17 20:45 Blood Blood Culture Pending Received Assessment & Plan SOB/HYPOXIA INFLUENZA A CXR showed no infiltrate Received Levaquin in the ER that was changed to Doxy due to QTC prolong Continue Tamiflu to complete 5 days course Continue solumedrol Continue neb treatment Continue oxygen Supplement Sputum cx grew moderate normal julissa Will D/C doxy for now since CXR showed no infiltrate If symptoms worsening or if sputum cx positive, will add abx 09/26 Clinically improves slightly Continue solumedrol Wheezing increases on exam Positive I/O for more than 5L Consider to give one time dose of lasix to diuresis Continue monitor closely Bacteremia Blood cx grew gram positive cocci Elevated WBC that is mostly related to steroid Afebrile Continue IV vanco ID on board Repeat Blood cx pending AFIB SVT HR btw 140-170 in ER. Converted back to sinus rhythm with vagal maneuver in the ER HR now in the low 100's Starting on heparin drip Cardiology on board Continue tele monitor ECHO pending 09/26 Now on NSR Rate control Metoprolol increased to 25mg q6 Continue heparin drip Starting on coumadin Sinus bradycaria was present during the echocardiogram. * The left ventricular wall motion is normal. * There is mild concentric left ventricular hypertrophy. * The LV Ejection Fraction = 60-65%. * Aortic valve sclerosis mild, without significant aortic valvular stenosis. * There is mild mitral regurgitation. * Grade I diastolic dysfunction, (abnormal relaxation pattern). Chest pain Possible related to cough Troponin negative No ischemic changes on EKG NAUSEA ASSOCIATED WITH ABDOMINAL PAIN Mostly related to acute illness CT abd/pelvis showed no acute process within the abdomen or pelvis. Received IVF Diet advanced as tolerated Diarrhea improves resolved HYPOKALEMIA K stable Continue monitor BMP HYPONATREMIA Na: 135 Continue monitor BMP DM II Hba1c 7 Oral diabetes med on hold Continue Lantus 5U BID HYPOTHYROIDISM TSH: 1.3 Continue levothyroxine HTN Lisinopril on hold BP stable DYSLIPIDEMIA Continue statin ANXIETY/DEPRESSION/PTSD/INSOMNIA continue trazodone HS Stable CHRONIC BACK PAIN continue gabapentin and hydrocodone prn pain Stable TOBACCO ABUSE nicotine patch Counseling on smoking cessation DVT Prophylaxis On heparin drip Disposition Continue tele Code status Full Code Disposition Continue Telemetry Current Inpatient Medications: Current Inpatient Medications Medications (Trade) Dose Ordered Sig/Kimberly Route Start Time Stop Time Status Last Admin Dose Admin Ioversol (Optiray 320) 125 ml UD PRN IV 09/24/17 09:30 09/28/17 09:29 Acetaminophen (Tylenol Tab) 650 mg Q4H PRN PO 09/24/17 12:00 10/24/17 11:59 Nitroglycerin (Nitrostat Tab) 0.4 mg UD PRN SL 09/24/17 12:00 10/24/17 11:59 Polyethylene (Miralax Powder Packet) 17 gm DAILY PRN PO 09/24/17 12:00 10/24/17 11:59 Insulin Aspart (novoLOG ASPART) SLIDING SCALE If C... ACHS SC 09/24/17 16:15 10/24/17 16:14 09/26/17 11:56 4 UNITS Glucose (Glucose 40% Gel) 15-30 GRAMS 15 GRAMS... UD PRN PO 09/24/17 12:15 10/24/17 12:14 Glucose (Glucose Chew Tab) 4-8 Tablets 4 Tabl... UD PRN PO 09/24/17 12:15 10/24/17 12:14 Dextrose (Dextrose 50% 50ML Syringe) 25-50ML OF 50% DW IV FOR... UD PRN IV 09/24/17 12:15 10/24/17 12:14 Glucagon (Glucagon Inj) 1 mg UD PRN SQ 09/24/17 12:15 10/24/17 12:14 Nicotine (Nicoderm Cq 14MG Patch) 1 patch QAM TD 09/24/17 15:00 10/24/17 14:59 09/26/17 08:30 1 PATCH Miscellaneous (Remove Nicoderm Patch) 1 ea HS N/A 09/24/17 21:00 10/24/17 20:59 09/25/17 21:01 1 EA Oseltamivir Phosphate (Tamiflu Cap) 75 mg BID PO 09/24/17 21:00 09/29/17 08:59 09/26/17 08:29 75 MG Levalbuterol (Xopenex 0.63 Mg/ 3 Ml Neb) 0.63 mg Q6R INH 09/24/17 15:00 10/24/17 14:59 09/26/17 14:34 0.63 MG Methylprednisolone Sodium Succinate 20 mg/Syringe 0.32 ml @ 1.5 mls/min Q8 IV 09/24/17 22:00 10/24/17 21:59 09/26/17 14:02 1.5 MLS/MIN Lorazepam (Ativan Inj) 0.5 mg Q6 PRN IV 09/24/17 12:30 10/24/17 12:29 Insulin Glargine (Lantus Solostar Pen) 5 units Q12 SC 09/24/17 21:00 10/24/17 20:59 09/26/17 08:28 5 UNITS Aspirin (Ecotrin Tab) 81 mg DAILY PO 09/25/17 09:00 10/25/17 08:59 09/26/17 08:30 81 MG Atorvastatin Calcium (Lipitor Tab) 40 mg DAILY PO 09/25/17 09:00 10/25/17 08:59 09/26/17 08:30 40 MG Gabapentin (Neurontin Cap) 300 mg TID PO 09/24/17 14:45 10/24/17 14:44 09/26/17 14:01 300 MG Acetaminophen/ Hydrocodone Bitart ([place] 10/325 Tab) 1 tab Q6H PRN PO 09/24/17 12:45 10/08/17 12:44 09/26/17 14:30 1 TAB Levothyroxine Sodium (Synthroid Tab) 88 mcg DAILYBB PO 09/25/17 06:00 10/25/17 05:59 09/26/17 06:18 88 MCG Trazodone HCl (Desyrel Tab) 150 mg HS PO 09/24/17 21:00 10/24/17 20:59 09/25/17 20:38 150 MG Lorazepam 0.5 mg/ Syringe 1 ml @ 1 mls/min Q6H PRN IV 09/24/17 14:45 10/24/17 14:44 Miscellaneous (Iv Fluids Completed) 1 ea PRN PRN N/A 09/24/17 16:15 09/24/18 16:14 Heparin Sodium/ Dextrose 500 ml @ 31 mls/hr Q16H8M PRN IV 09/25/17 03:30 10/25/17 03:29 09/26/17 14:00 31 MLS/HR Miscellaneous Information (Consult) 1 ea UD PRN N/A 09/25/17 11:30 10/25/17 11:29 Metoprolol Tartrate (Lopressor Tab) 25 mg Q6 PO 09/26/17 00:00 10/25/17 03:29 09/26/17 11:53 25 MG Warfarin Sodium (Coumadin Tab) 5 mg DAILY@16 PO 09/26/17 16:00 10/26/17 15:59 Vancomycin HCl 1500 mg/Sodium Chloride 530 ml @ 200 mls/hr Q12@0600,1800 IV 09/26/17 18:00 10/09/17 11:59
[2017-09-26] MEDS ORDERED: FUROSEMIDE 20 MG TAB PO ONE (15:45)
[2017-09-26] MEDS: WARFARIN SOD 5 MG TAB PO SCH (17:00)
--- NOTE | 2017-09-26 17:35 | Cardiology Follow-Up ---
Subjective General Date of Service: Sep 26, 2017. Chief Complaint: Follow-up atrial fibrillation Pt evaluation today including: conversation w/ patient, physical exam History of Present Illness The patient is a 57 year old male seen in follow-up. He notes overall he feels much improved. His cough is improving. He has no subjective fevers or chills or myalgias. He feels that his chest tightness that was associated with cough is improved. When I had seen him yesterday, a diltiazem drip was added. At around 10 PM, while still in atrial fibrillation with rapid ventricular rate , he had multiple conversion pauses in the range of 3-5 seconds, the longest of which was 5.8 seconds. Diltiazem infusion was discontinued and he remained in a relatively rate controlled atrial fibrillation until 4:30 AM on at which time he converted to sinus rhythm. He was asymptomatic with the rhythm disturbances last evening. Allergies Coded Allergies: No Known Allergies (Verified , 09/24/17) Social History Smoking Status: Current Every Day Smoker (currently smoking 0.5ppd, was smoking 4ppd x 40 years) Hx Tobacco Use In Past Year?: Yes (CIGARETTE) Hx Alcohol Use - Type And Amou: No Hx Substance Use - Type And Am: No Problem List Medical Problems: (1) COPD exacerbation Status: Acute (2) Fatigue Status: Acute (3) Hypoxia Status: Acute (4) Influenza B Status: Acute (5) [place] toxicity Status: Acute (6) Post traumatic stress disorder (PTSD) Status: Acute (7) Tachyarrhythmia Status: Acute Physical Exam Vital Signs Last Vital Signs Documentation Date Time Temp Pulse Resp B/P (MAP) Pulse Ox O2 Delivery O2 Flow Rate FiO2 09/26/17 16:00 Room Air 09/26/17 15:19 36.4 68 18 137/78 (97) 93 09/26/17 07:06 2.0 Physical Exam Constitutional: Level of Distress: NAD Lungs: Auscultation: no wheezing, no rales/crackles, no rhonchi Cardiovascular: Heart Auscultation: RRR, no murmurs, no rubs Extremities: no edema Neurologic: Gait & Station: pertinent finding (No focal neurologic deficits) Assessment and Plan Assessment and Plan Impression: 57-year-old male 1. Acute influenza B infection 2. Blood cultures revealing staph species pending identification, repeat cultures are pending 3. Echocardiogram with no evidence of vegetation within the limits of transthoracic echocardiogram 4. Atrial fibrillation, newly diagnosed Plan: Continue heparin bridge, Coumadin initiated. Multiple conversion pauses while diltiazem infusion and then shortly after diltiazem was discontinued, ultimately converting to sinus rhythm a few hours later and he is remained in sinus rhythm since 4:30 AM. I am optimistic that his rhythm disturbances including the tachycardia and the transient pauses related to his acute illness and recommend continue telemetry observation on his current dose of metoprolol 25 mg p.o. every 6 hours. Continue supportive care for influenza including Tamiflu. Agree with treatment with vancomycin for now. ID input noted and appreciated. He is on a heparin infusion for both stroke prophylaxis and this will also serve as DVT prophylaxis. Laboratory Results Last 24 Hours Test 09/25/17 20:30 09/25/17 22:57 09/26/17 06:54 09/26/17 07:33 Bedside Glucose 196 mg/dl 167 mg/dl Sodium Level 135 mmol/L 135 mmol/L Potassium Level 4.2 mmol/L 4.3 mmol/L Chloride Level 103 mmol/L 103 mmol/L Carbon Dioxide Level 25 mmol/L 26 mmol/L Anion Gap 7.0 mmol/L 6.0 mmol/L Blood Urea Nitrogen 22 mg/dl 20 mg/dl Creatinine 1.16 mg/dl 1.05 mg/dl Est Creatinine Clear Calc Drug Dose 79.8 ml/min 89.3 ml/min Estimated GFR () 79.4 89.6 Estimated GFR (Non- 68.5 77.3 BUN/Creatinine Ratio 18.8 18.9 Random Glucose 192 mg/dl 156 mg/dl Calcium Level 8.0 mg/dl 7.8 mg/dl Magnesium Level 2.3 mg/dl White Blood Count 14.29 K/uL Red Blood Count 5.02 M/uL Hemoglobin 15.4 g/dL Hematocrit 45.6 % Mean Corpuscular Volume 90.8 fL Mean Corpuscular Hemoglobin 30.7 pg Mean Corpuscular Hemoglobin Concent 33.8 g/dl RDW Standard Deviation 46.4 fL RDW Coefficient of Variation 14.0 % Platelet Count 193 K/uL Mean Platelet Volume 10.0 fL Prothrombin Time 10.5 SECONDS Prothromb Time International Ratio 1.0 Activated Partial Thromboplast Time 60.9 SECONDS Partial Thromboplastin Ratio 2.3 Test 09/26/17 11:26 09/26/17 11:47 09/26/17 16:22 Vancomycin Level Trough 24.5 mcg/ml Bedside Glucose 180 mg/dl 219 mg/dl
[2017-09-26] MEDS: VANCOMYCIN IV 1,500 MG in SODIUM CHLORIDE 0.9% 500ML 500 ML IV SCH (18:11)
[2017-09-26] MEDS: TRAZODONE HCL 50 MG TAB PO SCH (20:37)
[2017-09-27] VITALS (11 sets, daily range): BP systolic 125–177; BP diastolic 63–103; PULSE 53–69; TEMP 36.4–36.8; O2SAT 92–96
[2017-09-27] MEDS: METOPROLOL TARTRATE 25 MG TAB PO SCH ×3 (00:07→12:17)
[2017-09-27] MEDS: LORAZEPAM 2 MG/ML 1 ML VIAL IV PRN ×2 (00:10→22:45)
[2017-09-27] MEDS: LEVALBUTEROL 0.63MG/3 ML NEB INH SCH ×4 (01:59→19:11)
[2017-09-27 05:50] LABS: HEMATOCRIT 46.6 % (42-52); HEMOGLOBIN 15.4 g/dL (14.0-18.0); MEAN CELL VOLUME 91.9 fL (80-100); MEAN CORPUSCULAR HEMOGLOBIN 30.4 pg (25-34); MEAN PLATELET VOLUME 10.1 fL (7.4-10.4); PLATELET COUNT 178 K/uL (130-400); RED CELL DISTRIBUTION WIDTH CV 13.8 % (11.5-14.5); RED CELL DISTRIBUTION WIDTH SD 46.8 fL (36.4-46.3); WHITE BLOOD COUNT 10.48 K/uL (4.8-10.8)
[2017-09-27] MEDS: METHYLPREDNISOLONE IV 20 MG in SYRINGE 0 ML IV SCH ×3 (06:11→22:21)
[2017-09-27] MEDS: VANCOMYCIN IV 1,500 MG in SODIUM CHLORIDE 0.9% 500ML 500 ML IV SCH ×2 (06:11→17:46)
[2017-09-27 06:12] LABS: PTT PATIENT 50.3 SECONDS (21.0-31.0)
[2017-09-27] MEDS: LEVOTHYROXINE 88 MCG TAB PO SCH (06:13)
[2017-09-27 06:36] LABS: CALCIUM 8.2 mg/dl (8.5-10.1); CREATININE 0.86 mg/dl (0.60-1.40); POTASSIUM 3.6 mmol/L (3.5-5.1)
[2017-09-27] MEDS: HYDROCODONE/ACETAMI 10/325 TAB PO PRN ×3 (06:41→23:29)
[2017-09-27] MEDS: HEPARIN 25,000 UNIT/500ML D5W 500 ML IV PRN (07:01)
[2017-09-27] MEDS: OSELTAMIVIR PHOSPHATE 75 MG CAP PO SCH ×2 (07:39→20:34)
[2017-09-27] MEDS: ASPIRIN 81 MG ECTAB PO SCH (07:39)
[2017-09-27] MEDS: GABAPENTIN 300 MG CAP PO SCH ×3 (07:40→20:35)
[2017-09-27] MEDS: ATORVASTATIN 40 MG TAB PO SCH (07:40)
[2017-09-27] MEDS: NICOTINE 14 MG/24 HR TDSY TD SCH (07:40)
[2017-09-27] MEDS: INSULIN ASPART 100 UNITS/ML 3 ML PEN SC SCH ×4 (07:46→20:45)
[2017-09-27] MEDS: INSULIN GLARGINE SOLOSTAR 100 UNITS/ML 3 ML PEN SC SCH ×2 (07:47→20:45)
--- NOTE | 2017-09-27 14:22 | Progress Note ---
Subjective Date of Service: Sep 27, 2017. Subjective pt continues on vanco and po tamiflu. tolerating well. afebrile. blood cultures with staph species, no final. repeat pending. wbc improved. Problem List Medical Problems: (1) COPD exacerbation Status: Acute (2) Fatigue Status: Acute (3) Hypoxia Status: Acute (4) Influenza B Status: Acute (5) [place] toxicity Status: Acute (6) Post traumatic stress disorder (PTSD) Status: Acute (7) Tachyarrhythmia Status: Acute Objective Vital Signs Date Time Temp Pulse Resp B/P (MAP) Pulse Ox O2 Delivery O2 Flow Rate FiO2 09/27/17 12:55 36.7 69 20 138/94 (109) 92 Room Air 09/27/17 12:00 Room Air 09/27/17 08:00 Room Air 09/27/17 07:25 36.4 63 20 167/103 (124) 94 Room Air 09/27/17 06:51 62 18 94 Room Air 09/27/17 04:52 36.6 58 18 125/63 (83) 92 Room Air 09/27/17 04:00 Room Air 09/27/17 01:59 62 18 94 Room Air 09/27/17 00:13 36.5 57 20 177/94 (121) 93 Room Air 09/27/17 00:00 Room Air 09/26/17 20:00 Room Air 09/26/17 19:42 36.9 64 20 144/91 (108) 91 Room Air 09/26/17 18:59 67 18 95 Room Air 09/26/17 16:00 Room Air 09/26/17 15:19 36.4 68 18 137/78 (97) 93 Room Air 09/26/17 14:35 58 16 98 Room Air Laboratory Results Item Value Date Time Blood Culture - Preliminary Resulted 09/24/17 0929 Blood Staph Species Blood Culture - Preliminary Resulted 09/25/172044 Blood NO GROWTH TO DATE. Blood Culture - Preliminary Resulted 09/25/172048 Blood NO GROWTH TO DATE. Last 24 Hours Test 09/26/17 16:22 09/26/17 20:17 09/27/17 05:10 09/27/17 07:00 Bedside Glucose 219 mg/dl 263 mg/dl 124 mg/dl White Blood Count 10.48 K/uL Red Blood Count 5.07 M/uL Hemoglobin 15.4 g/dL Hematocrit 46.6 % Mean Corpuscular Volume 91.9 fL Mean Corpuscular Hemoglobin 30.4 pg Mean Corpuscular Hemoglobin Concent 33.0 g/dl RDW Standard Deviation 46.8 fL RDW Coefficient of Variation 13.8 % Platelet Count 178 K/uL Mean Platelet Volume 10.1 fL Prothrombin Time 10.8 SECONDS Prothromb Time International Ratio 1.0 Activated Partial Thromboplast Time 50.3 SECONDS Partial Thromboplastin Ratio 1.9 Sodium Level 135 mmol/L Potassium Level 3.6 mmol/L Chloride Level 101 mmol/L Carbon Dioxide Level 28 mmol/L Anion Gap 6.0 mmol/L Blood Urea Nitrogen 16 mg/dl Creatinine 0.86 mg/dl Est Creatinine Clear Calc Drug Dose 109.1 ml/min Estimated GFR () 110.0 Estimated GFR (Non- 94.9 BUN/Creatinine Ratio 18.4 Random Glucose 143 mg/dl Calcium Level 8.2 mg/dl Test 09/27/17 11:56 Bedside Glucose 199 mg/dl Assessment and Plan (1) Influenza Assessment & Plan: continue tamiflu, droplet precautions (2) Positive blood culture Assessment & Plan: continue vanco, ID pending, repeat cultures pending.
[2017-09-27] MEDS: WARFARIN SOD 5 MG TAB PO SCH (16:09)
--- NOTE | 2017-09-27 16:58 | Cardiology Follow-Up ---
Subjective General Date of Service: Sep 27, 2017. Chief Complaint: Follow-up atrial fibrillation Pt evaluation today including: conversation w/ patient, physical exam History of Present Illness The patient is a 57 year old male seen in follow up . Remains in SR. Viral symptoms continue to improve Allergies Coded Allergies: No Known Allergies (Verified , 09/24/17) Social History Smoking Status: Current Every Day Smoker (currently smoking 0.5ppd, was smoking 4ppd x 40 years) Hx Tobacco Use In Past Year?: Yes (CIGARETTE) Hx Alcohol Use - Type And Amou: No Hx Substance Use - Type And Am: No Problem List Medical Problems: (1) COPD exacerbation Status: Acute (2) Fatigue Status: Acute (3) Hypoxia Status: Acute (4) Influenza B Status: Acute (5) [place] toxicity Status: Acute (6) Post traumatic stress disorder (PTSD) Status: Acute (7) Tachyarrhythmia Status: Acute Physical Exam Vital Signs Last Vital Signs Documentation Date Time Temp Pulse Resp B/P (MAP) Pulse Ox O2 Delivery O2 Flow Rate FiO2 09/27/17 15:46 36.8 64 20 164/90 (114) 92 Room Air 09/26/17 07:06 2.0 Physical Exam Constitutional: Level of Distress: NAD Lungs: Auscultation: no wheezing, no rales/crackles, no rhonchi Cardiovascular: Heart Auscultation: RRR, no murmurs, no rubs Extremities: no edema Neurologic: Gait & Station: pertinent finding (No focal neurologic deficits) Assessment and Plan Assessment and Plan Impression: 57-year-old male 1. Acute influenza B infection 2. Blood cultures revealing staph species pending identification, repeat cultures are pending 3. Echocardiogram with no evidence of vegetation within the limits of transthoracic echocardiogram 4. Atrial fibrillation, newly diagnosed Plan: Continue heparin bridge to coumadin Change metoprolol tartrate from 25 mg PO Q 6 to 50 mg BID He is on a heparin infusion for both stroke prophylaxis and this will also serve as DVT prophylaxis. Laboratory Results Last 24 Hours Test 09/26/17 20:17 09/27/17 05:10 09/27/17 07:00 09/27/17 11:56 Bedside Glucose 263 mg/dl 124 mg/dl 199 mg/dl White Blood Count 10.48 K/uL Red Blood Count 5.07 M/uL Hemoglobin 15.4 g/dL Hematocrit 46.6 % Mean Corpuscular Volume 91.9 fL Mean Corpuscular Hemoglobin 30.4 pg Mean Corpuscular Hemoglobin Concent 33.0 g/dl RDW Standard Deviation 46.8 fL RDW Coefficient of Variation 13.8 % Platelet Count 178 K/uL Mean Platelet Volume 10.1 fL Prothrombin Time 10.8 SECONDS Prothromb Time International Ratio 1.0 Activated Partial Thromboplast Time 50.3 SECONDS Partial Thromboplastin Ratio 1.9 Sodium Level 135 mmol/L Potassium Level 3.6 mmol/L Chloride Level 101 mmol/L Carbon Dioxide Level 28 mmol/L Anion Gap 6.0 mmol/L Blood Urea Nitrogen 16 mg/dl Creatinine 0.86 mg/dl Est Creatinine Clear Calc Drug Dose 109.1 ml/min Estimated GFR () 110.0 Estimated GFR (Non- 94.9 BUN/Creatinine Ratio 18.4 Random Glucose 143 mg/dl Calcium Level 8.2 mg/dl
--- NOTE | 2017-09-27 19:29 | Progress Note ---
Medicine Progress Note Date & Time of Visit: Sep 27, 2017 at 19:23. Subjective Pt was seen and examined Lying in bed with no distress Pt said that he feels slightly better denies any chest pain, palpitation and SOB Objective Last 8 Hrs Date Time Temp Pulse Resp B/P (MAP) Pulse Ox O2 Delivery O2 Flow Rate FiO2 09/27/17 16:00 Room Air 09/27/17 15:46 36.8 64 20 164/90 (114) 92 Room Air 09/27/17 14:31 62 18 96 Room Air 09/27/17 12:55 36.7 69 20 138/94 (109) 92 Room Air 09/27/17 12:00 Room Air Physical Exam: General- No acute distress Head- atraumatic Eyes- PERRL, EOMI ENT- oropharynx clear Neck- supple, no JVD Lungs- +wheezing Heart- regular rhythm; no murmur Abdomen- normal bowel sounds, soft Extremities- No calf tenderness Neuro- alert, oriented x 3; PERRL, EOMI Skin- warm & dry Laboratory Results: Last 24 Hours Test 09/26/17 20:17 09/27/17 05:10 09/27/17 07:00 09/27/17 11:56 Bedside Glucose 263 mg/dl 124 mg/dl 199 mg/dl White Blood Count 10.48 K/uL Red Blood Count 5.07 M/uL Hemoglobin 15.4 g/dL Hematocrit 46.6 % Mean Corpuscular Volume 91.9 fL Mean Corpuscular Hemoglobin 30.4 pg Mean Corpuscular Hemoglobin Concent 33.0 g/dl RDW Standard Deviation 46.8 fL RDW Coefficient of Variation 13.8 % Platelet Count 178 K/uL Mean Platelet Volume 10.1 fL Prothrombin Time 10.8 SECONDS Prothromb Time International Ratio 1.0 Activated Partial Thromboplast Time 50.3 SECONDS Partial Thromboplastin Ratio 1.9 Sodium Level 135 mmol/L Potassium Level 3.6 mmol/L Chloride Level 101 mmol/L Carbon Dioxide Level 28 mmol/L Anion Gap 6.0 mmol/L Blood Urea Nitrogen 16 mg/dl Creatinine 0.86 mg/dl Est Creatinine Clear Calc Drug Dose 109.1 ml/min Estimated GFR () 110.0 Estimated GFR (Non- 94.9 BUN/Creatinine Ratio 18.4 Random Glucose 143 mg/dl Calcium Level 8.2 mg/dl Assessment & Plan SOB/HYPOXIA INFLUENZA B CXR showed no infiltrate Received Levaquin in the ER that was changed to Doxy due to QTC prolong Continue Tamiflu to complete 5 days course Continue solumedrol Continue neb treatment Continue oxygen Supplement Sputum cx grew moderate normal julissa Will D/C doxy for now since CXR showed no infiltrate If symptoms worsening or if sputum cx positive, will add abx 09/27 Clinically improves slightly Will taper solumedrol Continue monitor closely Bacteremia Blood cx grew gram positive cocci Elevated WBC that is mostly related to steroid Afebrile Continue IV vanco ID on board prelimianry Repeat Blood cx no growth AFIB SVT HR btw 140-170 in ER. Converted back to sinus rhythm with vagal maneuver in the ER HR now in the low 100's Starting on heparin drip Cardiology on board Continue tele monitor ECHO pending 09/27 Now on NSR Rate control Metoprolol changed to 50mg BID Continue heparin drip Starting on coumadin Sinus bradycaria was present during the echocardiogram. * The left ventricular wall motion is normal. * There is mild concentric left ventricular hypertrophy. * The LV Ejection Fraction = 60-65%. * Aortic valve sclerosis mild, without significant aortic valvular stenosis. * There is mild mitral regurgitation. * Grade I diastolic dysfunction, (abnormal relaxation pattern). Chest pain Possible related to cough Troponin negative No ischemic changes on EKG NAUSEA ASSOCIATED WITH ABDOMINAL PAIN Mostly related to acute illness CT abd/pelvis showed no acute process within the abdomen or pelvis. Received IVF Diet advanced as tolerated Diarrhea improves resolved HYPOKALEMIA K stable Continue monitor BMP HYPONATREMIA Na: 135 Continue monitor BMP DM II Hba1c 7 Oral diabetes med on hold Continue Lantus 5U BID HYPOTHYROIDISM TSH: 1.3 Continue levothyroxine HTN Lisinopril on hold BP stable DYSLIPIDEMIA Continue statin ANXIETY/DEPRESSION/PTSD/INSOMNIA continue trazodone HS Stable CHRONIC BACK PAIN continue gabapentin and hydrocodone prn pain Stable TOBACCO ABUSE nicotine patch Counseling on smoking cessation DVT Prophylaxis On heparin drip Disposition Continue tele Code status Full Code Disposition Continue Telemetry Current Inpatient Medications: Current Inpatient Medications Medications (Trade) Dose Ordered Sig/Kimberly Route Start Time Stop Time Status Last Admin Dose Admin Ioversol (Optiray 320) 125 ml UD PRN IV 09/24/17 09:30 09/28/17 09:29 Acetaminophen (Tylenol Tab) 650 mg Q4H PRN PO 09/24/17 12:00 10/24/17 11:59 Nitroglycerin (Nitrostat Tab) 0.4 mg UD PRN SL 09/24/17 12:00 10/24/17 11:59 Polyethylene (Miralax Powder Packet) 17 gm DAILY PRN PO 09/24/17 12:00 10/24/17 11:59 Insulin Aspart (novoLOG ASPART) SLIDING SCALE If C... ACHS SC 09/24/17 16:15 10/24/17 16:14 09/27/17 17:45 1 UNITS Glucose (Glucose 40% Gel) 15-30 GRAMS 15 GRAMS... UD PRN PO 09/24/17 12:15 10/24/17 12:14 Glucose (Glucose Chew Tab) 4-8 Tablets 4 Tabl... UD PRN PO 09/24/17 12:15 10/24/17 12:14 Dextrose (Dextrose 50% 50ML Syringe) 25-50ML OF 50% DW IV FOR... UD PRN IV 09/24/17 12:15 10/24/17 12:14 Glucagon (Glucagon Inj) 1 mg UD PRN SQ 09/24/17 12:15 10/24/17 12:14 Nicotine (Nicoderm Cq 14MG Patch) 1 patch QAM TD 09/24/17 15:00 10/24/17 14:59 09/27/17 07:40 1 PATCH Miscellaneous (Remove Nicoderm Patch) 1 ea HS N/A 09/24/17 21:00 10/24/17 20:59 09/26/17 20:36 1 EA Oseltamivir Phosphate (Tamiflu Cap) 75 mg BID PO 09/24/17 21:00 09/29/17 08:59 09/27/17 07:39 75 MG Levalbuterol (Xopenex 0.63 Mg/ 3 Ml Neb) 0.63 mg Q6R INH 09/24/17 15:00 10/24/17 14:59 09/27/17 19:11 0.63 MG Methylprednisolone Sodium Succinate 20 mg/Syringe 0.32 ml @ 1.5 mls/min Q8 IV 09/24/17 22:00 10/24/17 21:59 09/27/17 14:20 1.5 MLS/MIN Lorazepam (Ativan Inj) 0.5 mg Q6 PRN IV 09/24/17 12:30 10/24/17 12:29 09/27/17 00:10 0.5 MG Insulin Glargine (Lantus Solostar Pen) 5 units Q12 SC 09/24/17 21:00 10/24/17 20:59 09/27/17 07:47 5 UNITS Aspirin (Ecotrin Tab) 81 mg DAILY PO 09/25/17 09:00 10/25/17 08:59 09/27/17 07:39 81 MG Atorvastatin Calcium (Lipitor Tab) 40 mg DAILY PO 09/25/17 09:00 10/25/17 08:59 09/27/17 07:40 40 MG Gabapentin (Neurontin Cap) 300 mg TID PO 09/24/17 14:45 10/24/17 14:44 09/27/17 14:18 300 MG Acetaminophen/ Hydrocodone Bitart ([place] 10/325 Tab) 1 tab Q6H PRN PO 09/24/17 12:45 10/08/17 12:44 09/27/17 13:48 1 TAB Levothyroxine Sodium (Synthroid Tab) 88 mcg DAILYBB PO 09/25/17 06:00 10/25/17 05:59 09/27/17 06:13 88 MCG Trazodone HCl (Desyrel Tab) 150 mg HS PO 09/24/17 21:00 10/24/17 20:59 09/26/17 20:37 150 MG Lorazepam 0.5 mg/ Syringe 1 ml @ 1 mls/min Q6H PRN IV 09/24/17 14:45 10/24/17 14:44 Miscellaneous (Iv Fluids Completed) 1 ea PRN PRN N/A 09/24/17 16:15 09/24/18 16:14 Heparin Sodium/ Dextrose 500 ml @ 31 mls/hr Q16H8M PRN IV 09/25/17 03:30 10/25/17 03:29 09/27/17 07:01 31 MLS/HR Miscellaneous Information (Consult) 1 ea UD PRN N/A 09/25/17 11:30 10/25/17 11:29 Warfarin Sodium (Coumadin Tab) 5 mg DAILY@16 PO 09/26/17 16:00 10/26/17 15:59 09/27/17 16:09 5 MG Vancomycin HCl 1500 mg/Sodium Chloride 530 ml @ 200 mls/hr Q12@0600,1800 IV 09/26/17 18:00 10/09/17 11:59 09/27/17 17:46 200 MLS/HR Metoprolol Tartrate (Lopressor Tab) 50 mg BID PO 09/27/17 21:00 10/27/17 20:59
[2017-09-27] MEDS: METOPROLOL TARTRATE 50 MG TAB PO SCH (20:33)
[2017-09-27] MEDS: TRAZODONE HCL 50 MG TAB PO SCH (20:34)
[2017-09-28] VITALS (14 sets, daily range): BP systolic 131–164; BP diastolic 81–97; PULSE 51–65; TEMP 36.5–37; O2SAT 90–98
[2017-09-28] MEDS: LEVALBUTEROL 0.63MG/3 ML NEB INH SCH ×4 (01:40→19:16)
[2017-09-28] MEDS ORDERED: VANCOMYCIN TROUGH ONE (05:30)
[2017-09-28 05:53] LABS: HEMOGLOBIN 16.3 g/dL (14.0-18.0); MEAN CELL VOLUME 91.6 fL (80-100); MEAN CORPUSCULAR HEMOGLOBIN 30.5 pg (25-34); MEAN CORPUSCULAR HGB CONC 33.3 g/dl (32-36); MEAN PLATELET VOLUME 10.3 fL (7.4-10.4); PLATELET COUNT 208 K/uL (130-400); RED CELL DISTRIBUTION WIDTH CV 13.7 % (11.5-14.5); RED CELL DISTRIBUTION WIDTH SD 45.9 fL (36.4-46.3); WHITE BLOOD COUNT 11.06 K/uL (4.8-10.8)
[2017-09-28] MEDS: VANCOMYCIN IV 1,500 MG in SODIUM CHLORIDE 0.9% 500ML 500 ML IV SCH (06:00)
[2017-09-28] MEDS: METHYLPREDNISOLONE IV 20 MG in SYRINGE 0 ML IV SCH ×3 (06:00→20:56)
[2017-09-28] MEDS: LEVOTHYROXINE 88 MCG TAB PO SCH (06:03)
[2017-09-28 06:37] LABS: CREATININE 1.05 mg/dl (0.60-1.40)
[2017-09-28 06:48] LABS: PTT PATIENT 55.7 SECONDS (21.0-31.0)
[2017-09-28] MEDS: HYDROCODONE/ACETAMI 10/325 TAB PO PRN ×3 (06:51→20:59)
[2017-09-28] MEDS: ASPIRIN 81 MG ECTAB PO SCH (08:27)
[2017-09-28] MEDS: GABAPENTIN 300 MG CAP PO SCH ×3 (08:28→20:59)
[2017-09-28] MEDS: ATORVASTATIN 40 MG TAB PO SCH (08:28)
[2017-09-28] MEDS: NICOTINE 14 MG/24 HR TDSY TD SCH (08:29)
[2017-09-28] MEDS: OSELTAMIVIR PHOSPHATE 75 MG CAP PO SCH ×2 (08:30→21:00)
[2017-09-28] MEDS: INSULIN ASPART 100 UNITS/ML 3 ML PEN SC SCH ×4 (08:39→20:55)
[2017-09-28] MEDS: INSULIN GLARGINE SOLOSTAR 100 UNITS/ML 3 ML PEN SC SCH ×2 (08:39→20:56)
--- NOTE | 2017-09-28 09:07 | Pharmacy Progress Note ---
Pharmacy Abx Dose Short Note Date of Service Sep 28, 2017. Assessment & Plan Assessment 57 year old male receiving vancomycin for treatment of bacteremia Day # 5 of antimicrobial therapy. Plan Vancomycin * Trough level of 14.7 mcg/mL is slightly subtherapeutic * Trough this AM slightly below goal, however SCr fluctuating and patient at risk for accumulation, [place] [address] mg q12H and recheck trough level tomorrow, may needed to adjust dose if not therapeutic. * Goal trough level 15-20 mcg/mL * Trough level ordered for 09/29 @ 8930 Pharmacy will continue to follow and will adjust dose/frequency as necessary. Thank you.
[2017-09-28] MEDS: METOPROLOL TARTRATE 50 MG TAB PO SCH ×2 (09:13→21:01)
--- NOTE | 2017-09-28 11:41 | Progress Note ---
Subjective Date of Service: Sep 28, 2017. Subjective pt remains on vanco, culture with tugger operator. repeat negative. tolerating tamiflu. afebrile. no overnight events. Problem List Medical Problems: (1) COPD exacerbation Status: Acute (2) Fatigue Status: Acute (3) Hypoxia Status: Acute (4) Influenza B Status: Acute (5) [place] toxicity Status: Acute (6) Post traumatic stress disorder (PTSD) Status: Acute (7) Tachyarrhythmia Status: Acute Objective Vital Signs Date Time Temp Pulse Resp B/P (MAP) Pulse Ox O2 Delivery O2 Flow Rate FiO2 09/28/17 08:00 94 Room Air 09/28/17 07:56 36.9 51 18 156/94 (114) 94 Room Air 09/28/17 07:36 54 18 94 Room Air 09/28/17 04:12 36.6 56 18 132/82 (99) 90 Room Air 09/28/17 04:00 90 Room Air 09/28/17 01:40 65 18 92 Room Air 09/27/17 23:59 92 Room Air 09/27/17 23:44 36.4 53 18 147/94 (111) 92 Room Air 09/27/17 20:00 Room Air 09/27/17 19:11 66 18 94 Room Air 09/27/17 16:00 Room Air 09/27/17 15:46 36.8 64 20 164/90 (114) 92 Room Air 09/27/17 14:31 62 18 96 Room Air 09/27/17 12:55 36.7 69 20 138/94 (109) 92 Room Air 09/27/17 12:00 Room Air Laboratory Results Item Value Date Time Blood Culture - Final Complete 09/24/17 0929 Blood Coag Neg Staph Not [place]ensis Blood Culture - Preliminary Resulted 09/25/172044 Blood NO GROWTH TO DATE. Gram Stain - Final Complete 09/24/17 1500 Sputum Expectorated Sputum Blood Culture - Preliminary Resulted 09/25/172048 Blood NO GROWTH TO DATE. Last 24 Hours Test 09/27/17 11:56 09/27/17 17:06 09/27/17 20:34 09/28/17 05:28 Bedside Glucose 199 mg/dl 195 mg/dl 222 mg/dl White Blood Count 11.06 K/uL Red Blood Count 5.35 M/uL Hemoglobin 16.3 g/dL Hematocrit 49.0 % Mean Corpuscular Volume 91.6 fL Mean Corpuscular Hemoglobin 30.5 pg Mean Corpuscular Hemoglobin Concent 33.3 g/dl RDW Standard Deviation 45.9 fL RDW Coefficient of Variation 13.7 % Platelet Count 208 K/uL Mean Platelet Volume 10.3 fL Prothrombin Time 11.0 SECONDS Prothromb Time International Ratio 1.0 Activated Partial Thromboplast Time 55.7 SECONDS Partial Thromboplastin Ratio 2.1 Creatinine 1.05 mg/dl Est Creatinine Clear Calc Drug Dose 88.5 ml/min Estimated GFR () 89.6 Estimated GFR (Non- 77.3 Vancomycin Level Trough 14.7 mcg/ml Test 09/28/17 06:53 09/28/17 10:50 Bedside Glucose 187 mg/dl 222 mg/dl Assessment and Plan (1) Influenza Assessment & Plan: continue tamiflu, droplet precautions (2) Positive blood culture Assessment & Plan: likely contaminant, will stop vanco.
[2017-09-28] MEDS: HEPARIN 25,000 UNIT/500ML D5W 500 ML IV PRN (15:41)
--- NOTE | 2017-09-28 16:08 | Cardiology Follow-Up ---
Subjective General Date of Service: Sep 28, 2017. Chief Complaint: Follow-up atrial fibrillation Pt evaluation today including: conversation w/ patient, physical exam History of Present Illness The patient is a 57 year old male seen in follow up. No additional AF on telemetry. INR still below goal at 1. Allergies Coded Allergies: No Known Allergies (Verified , 09/24/17) Social History Smoking Status: Current Every Day Smoker (currently smoking 0.5ppd, was smoking 4ppd x 40 years) Hx Tobacco Use In Past Year?: Yes (CIGARETTE) Hx Alcohol Use - Type And Amou: No Hx Substance Use - Type And Am: No Problem List Medical Problems: (1) COPD exacerbation Status: Acute (2) Fatigue Status: Acute (3) Hypoxia Status: Acute (4) Influenza B Status: Acute (5) [place] toxicity Status: Acute (6) Post traumatic stress disorder (PTSD) Status: Acute (7) Tachyarrhythmia Status: Acute Physical Exam Vital Signs Last Vital Signs Documentation Date Time Temp Pulse Resp B/P (MAP) Pulse Ox O2 Delivery O2 Flow Rate FiO2 09/28/17 14:42 60 18 98 Nasal Cannula 2.0 09/28/17 11:45 36.7 149/87 (107) Physical Exam Constitutional: Level of Distress: NAD Lungs: Auscultation: no wheezing, no rales/crackles, no rhonchi Cardiovascular: Heart Auscultation: RRR, no murmurs, no rubs Extremities: no edema Neurologic: Gait & Station: pertinent finding (No focal neurologic deficits) Assessment and Plan Assessment and Plan Impression: 57-year-old male 1. Acute influenza B infection- improving, still residual wheezing 2. Positive Blood cultures , likely contaminant 3. Echocardiogram with no evidence of vegetation within the limits of transthoracic echocardiogram 4. Atrial fibrillation, newly diagnosed, conversion pauses on cardizem gtt, resolved off cardizem Plan: Continue heparin bridge to coumadin. Coumadin increased to 10 mg. Change metoprolol tartrate 50 mg BID He is on a heparin infusion for both stroke prophylaxis and this will also serve as DVT prophylaxis. ID input noted. Antibiotics stopped per ID recommendation. Laboratory Results Last 24 Hours Test 09/27/17 17:06 09/27/17 20:34 09/28/17 05:28 09/28/17 06:53 Bedside Glucose 195 mg/dl 222 mg/dl 187 mg/dl White Blood Count 11.06 K/uL Red Blood Count 5.35 M/uL Hemoglobin 16.3 g/dL Hematocrit 49.0 % Mean Corpuscular Volume 91.6 fL Mean Corpuscular Hemoglobin 30.5 pg Mean Corpuscular Hemoglobin Concent 33.3 g/dl RDW Standard Deviation 45.9 fL RDW Coefficient of Variation 13.7 % Platelet Count 208 K/uL Mean Platelet Volume 10.3 fL Prothrombin Time 11.0 SECONDS Prothromb Time International Ratio 1.0 Activated Partial Thromboplast Time 55.7 SECONDS Partial Thromboplastin Ratio 2.1 Creatinine 1.05 mg/dl Est Creatinine Clear Calc Drug Dose 88.5 ml/min Estimated GFR () 89.6 Estimated GFR (Non- 77.3 Vancomycin Level Trough 14.7 mcg/ml Test 09/28/17 10:50 Bedside Glucose 222 mg/dl
--- NOTE | 2017-09-28 16:09 | Progress Note ---
Medicine Progress Note Date & Time of Visit: Sep 28, 2017 at 15:23. Subjective Pt was seen and examined Lying in bed with no distress Pt said that he feels much better today He said that his breathing seems to improve Denies any chest pain, palpitation, dizziness Objective Last 8 Hrs Date Time Temp Pulse Resp B/P (MAP) Pulse Ox O2 Delivery O2 Flow Rate FiO2 09/28/17 14:42 60 18 98 Nasal Cannula 2.0 09/28/17 12:13 92 Nasal Cannula 2.0 09/28/17 11:45 36.7 51 18 149/87 (107) 92 Nasal Cannula 2.0 09/28/17 08:00 94 Room Air 09/28/17 07:56 36.9 51 18 156/94 (114) 94 Room Air 09/28/17 07:36 54 18 94 Room Air Physical Exam: General- No acute distress Head- atraumatic Eyes- PERRL, EOMI ENT- oropharynx clear Neck- supple, no JVD Lungs- +wheezing Heart- regular rhythm; no murmur Abdomen- normal bowel sounds, soft Extremities- No calf tenderness Neuro- alert, oriented x 3; PERRL, EOMI Skin- warm & dry Laboratory Results: Last 24 Hours Test 09/27/17 17:06 09/27/17 20:34 09/28/17 05:28 09/28/17 06:53 Bedside Glucose 195 mg/dl 222 mg/dl 187 mg/dl White Blood Count 11.06 K/uL Red Blood Count 5.35 M/uL Hemoglobin 16.3 g/dL Hematocrit 49.0 % Mean Corpuscular Volume 91.6 fL Mean Corpuscular Hemoglobin 30.5 pg Mean Corpuscular Hemoglobin Concent 33.3 g/dl RDW Standard Deviation 45.9 fL RDW Coefficient of Variation 13.7 % Platelet Count 208 K/uL Mean Platelet Volume 10.3 fL Prothrombin Time 11.0 SECONDS Prothromb Time International Ratio 1.0 Activated Partial Thromboplast Time 55.7 SECONDS Partial Thromboplastin Ratio 2.1 Creatinine 1.05 mg/dl Est Creatinine Clear Calc Drug Dose 88.5 ml/min Estimated GFR () 89.6 Estimated GFR (Non- 77.3 Vancomycin Level Trough 14.7 mcg/ml Test 09/28/17 10:50 Bedside Glucose 222 mg/dl Assessment & Plan SOB/HYPOXIA INFLUENZA B CXR showed no infiltrate Received Levaquin in the ER that was changed to Doxy due to QTC prolong Continue Tamiflu to complete 5 days course Continue solumedrol Continue neb treatment Continue oxygen Supplement Sputum cx grew moderate normal julissa Will D/C doxy for now since CXR showed no infiltrate If symptoms worsening or if sputum cx positive, will add abx 09/28 Clinically improves slightly But continue to wheeze Continue solumedrol Continue tamiflu Bacteremia Blood cx grew gram positive cocci Elevated WBC that is mostly related to steroid Afebrile Continue IV vanco ID on board preliminary Repeat Blood cx no growth 09/28 case discussed with ID and recommended to d/c abx since blood cx seems to be contaminated Vanco was d/c Continue monitor AFIB SVT HR btw 140-170 in ER. Converted back to sinus rhythm with vagal maneuver in the ER HR now in the low 100's Starting on heparin drip Cardiology on board Continue tele monitor ECHO pending 09/27 Now on NSR Rate control Metoprolol changed to 50mg BID Continue heparin drip Continue coumadin Check INR * Sinus bradycaria was present during the echocardiogram. * The left ventricular wall motion is normal. * There is mild concentric left ventricular hypertrophy. * The LV Ejection Fraction = 60-65%. * Aortic valve sclerosis mild, without significant aortic valvular stenosis. * There is mild mitral regurgitation. * Grade I diastolic dysfunction, (abnormal relaxation pattern). Chest pain Possible related to cough Troponin negative No ischemic changes on EKG Resolved NAUSEA ASSOCIATED WITH ABDOMINAL PAIN Mostly related to acute illness CT abd/pelvis showed no acute process within the abdomen or pelvis. Received IVF Diet advanced as tolerated Diarrhea improves resolved HYPOKALEMIA K stable Continue monitor BMP HYPONATREMIA Na: 135 Continue monitor BMP DM II Hba1c 7 Oral diabetes med on hold Continue Lantus 5U BID HYPOTHYROIDISM TSH: 1.3 Continue levothyroxine HTN Lisinopril on hold BP stable DYSLIPIDEMIA Continue statin ANXIETY/DEPRESSION/PTSD/INSOMNIA continue trazodone HS Stable CHRONIC BACK PAIN continue gabapentin and hydrocodone prn pain Stable TOBACCO ABUSE nicotine patch Counseling on smoking cessation DVT Prophylaxis On heparin drip Disposition Continue tele Code status Full Code Disposition Continue Telemetry Current Inpatient Medications: Current Inpatient Medications Medications (Trade) Dose Ordered Sig/Kimberly Route Start Time Stop Time Status Last Admin Dose Admin Acetaminophen (Tylenol Tab) 650 mg Q4H PRN PO 09/24/17 12:00 10/24/17 11:59 Nitroglycerin (Nitrostat Tab) 0.4 mg UD PRN SL 09/24/17 12:00 10/24/17 11:59 Polyethylene (Miralax Powder Packet) 17 gm DAILY PRN PO 09/24/17 12:00 10/24/17 11:59 Insulin Aspart (novoLOG ASPART) SLIDING SCALE If C... ACHS SC 09/24/17 16:15 10/24/17 16:14 09/28/17 11:56 5 UNITS Glucose (Glucose 40% Gel) 15-30 GRAMS 15 GRAMS... UD PRN PO 09/24/17 12:15 10/24/17 12:14 Glucose (Glucose Chew Tab) 4-8 Tablets 4 Tabl... UD PRN PO 09/24/17 12:15 10/24/17 12:14 Dextrose (Dextrose 50% 50ML Syringe) 25-50ML OF 50% DW IV FOR... UD PRN IV 09/24/17 12:15 10/24/17 12:14 Glucagon (Glucagon Inj) 1 mg UD PRN SQ 09/24/17 12:15 10/24/17 12:14 Nicotine (Nicoderm Cq 14MG Patch) 1 patch QAM TD 09/24/17 15:00 10/24/17 14:59 09/28/17 08:29 1 PATCH Miscellaneous (Remove Nicoderm Patch) 1 ea HS N/A 09/24/17 21:00 10/24/17 20:59 09/27/17 21:21 1 EA Oseltamivir Phosphate (Tamiflu Cap) 75 mg BID PO 09/24/17 21:00 09/29/17 08:59 09/28/17 08:30 75 MG Levalbuterol (Xopenex 0.63 Mg/ 3 Ml Neb) 0.63 mg Q6R INH 09/24/17 15:00 10/24/17 14:59 09/28/17 14:42 0.63 MG Methylprednisolone Sodium Succinate 20 mg/Syringe 0.32 ml @ 1.5 mls/min Q8 IV 09/24/17 22:00 10/24/17 21:59 09/28/17 13:31 1.5 MLS/MIN Lorazepam (Ativan Inj) 0.5 mg Q6 PRN IV 09/24/17 12:30 10/24/17 12:29 09/27/17 22:45 0.5 MG Insulin Glargine (Lantus Solostar Pen) 5 units Q12 SC 09/24/17 21:00 10/24/17 20:59 09/28/17 08:39 5 UNITS Aspirin (Ecotrin Tab) 81 mg DAILY PO 09/25/17 09:00 10/25/17 08:59 09/28/17 08:27 81 MG Atorvastatin Calcium (Lipitor Tab) 40 mg DAILY PO 09/25/17 09:00 10/25/17 08:59 09/28/17 08:28 40 MG Gabapentin (Neurontin Cap) 300 mg TID PO 09/24/17 14:45 10/24/17 14:44 09/28/17 13:31 300 MG Acetaminophen/ Hydrocodone Bitart ([place] 10/325 Tab) 1 tab Q6H PRN PO 09/24/17 12:45 10/08/17 12:44 09/28/17 13:01 1 TAB Levothyroxine Sodium (Synthroid Tab) 88 mcg DAILYBB PO 09/25/17 06:00 10/25/17 05:59 09/28/17 06:03 88 MCG Trazodone HCl (Desyrel Tab) 150 mg HS PO 09/24/17 21:00 10/24/17 20:59 09/27/17 20:34 150 MG Lorazepam 0.5 mg/ Syringe 1 ml @ 1 mls/min Q6H PRN IV 09/24/17 14:45 10/24/17 14:44 Miscellaneous (Iv Fluids Completed) 1 ea PRN PRN N/A 09/24/17 16:15 09/24/18 16:14 Heparin Sodium/ Dextrose 500 ml @ 31 mls/hr Q16H8M PRN IV 09/25/17 03:30 10/25/17 03:29 09/27/17 07:01 31 MLS/HR Metoprolol Tartrate (Lopressor Tab) 50 mg BID PO 09/27/17 21:00 10/27/17 20:59 09/28/17 09:13 50 MG Warfarin Sodium (Coumadin Tab) 7.5 mg DAILY@16 PO 09/28/17 16:00 10/28/17 15:59
[2017-09-28] MEDS: WARFARIN SOD 7.5 MG TAB PO SCH (16:32)
[2017-09-28] MEDS: LORAZEPAM 2 MG/ML 1 ML VIAL IV PRN (20:57)
[2017-09-28] MEDS: TRAZODONE HCL 50 MG TAB PO SCH (21:01)
[2017-09-29] VITALS (12 sets, daily range): BP systolic 125–157; BP diastolic 78–99; PULSE 49–67; TEMP 36.4–36.9; O2SAT 89–98
[2017-09-29] MEDS: LEVALBUTEROL 0.63MG/3 ML NEB INH SCH ×4 (01:45→19:28)
[2017-09-29] MEDS: HYDROCODONE/ACETAMI 10/325 TAB PO PRN ×4 (03:06→22:28)
[2017-09-29] MEDS ORDERED: VANCOMYCIN TROUGH ONE (05:30)
[2017-09-29] MEDS: LEVOTHYROXINE 88 MCG TAB PO SCH (06:25)
[2017-09-29] MEDS: METHYLPREDNISOLONE IV 20 MG in SYRINGE 0 ML IV SCH ×3 (06:26→20:27)
[2017-09-29 07:07] LABS: INR 1.3 (0.9-1.1); PTT PATIENT 44.7 SECONDS (21.0-31.0)
[2017-09-29 07:19] LABS: CALCIUM 8.9 mg/dl (8.5-10.1); POTASSIUM 4.4 mmol/L (3.5-5.1)
[2017-09-29] MEDS ORDERED: HEPARIN IV BOLUS 3,000 UNIT in SYRINGE 0 ML IV ONE (07:45)
[2017-09-29] MEDS: HEPARIN 25,000 UNIT/500ML D5W 500 ML IV PRN (08:03)
[2017-09-29] MEDS: INSULIN ASPART 100 UNITS/ML 3 ML PEN SC SCH ×4 (08:04→20:34)
[2017-09-29] MEDS: ATORVASTATIN 40 MG TAB PO SCH (08:05)
[2017-09-29] MEDS: ASPIRIN 81 MG ECTAB PO SCH (08:05)
[2017-09-29] MEDS: METOPROLOL TARTRATE 50 MG TAB PO SCH ×2 (08:06→20:26)
[2017-09-29] MEDS: NICOTINE 14 MG/24 HR TDSY TD SCH (08:06)
[2017-09-29] MEDS: GABAPENTIN 300 MG CAP PO SCH ×3 (08:06→20:28)
[2017-09-29] MEDS: INSULIN GLARGINE SOLOSTAR 100 UNITS/ML 3 ML PEN SC SCH ×2 (08:10→20:33)
[2017-09-29 14:32] LABS: PTT PATIENT 55.2 SECONDS (21.0-31.0)
[2017-09-29] MEDS: WARFARIN SOD 7.5 MG TAB PO SCH (15:47)
--- NOTE | 2017-09-29 18:00 | Progress Note ---
Medicine Progress Note Date & Time of Visit: Sep 29, 2017 at 17:55. Subjective Pt was seen and examined Sitting in bed comfortable with no distress Pt said that he feels good he would like to go home today he said that his breathing improves denies any chest pain, palpitation and SOB Objective Last 8 Hrs Date Time Temp Pulse Resp B/P (MAP) Pulse Ox O2 Delivery O2 Flow Rate FiO2 09/29/17 16:00 Room Air 09/29/17 15:22 36.9 50 18 132/78 (96) 93 Nasal Cannula 2.0 09/29/17 14:15 67 20 89 Room Air 09/29/17 12:00 Room Air 09/29/17 10:42 36.6 52 20 149/93 (111) 93 Room Air Physical Exam: General- No acute distress Head- atraumatic Eyes- PERRL, EOMI ENT- oropharynx clear Neck- supple, no JVD Lungs- +mild wheezing Heart- regular rhythm; no murmur Abdomen- normal bowel sounds, soft Extremities- No calf tenderness Neuro- alert, oriented x 3; PERRL, EOMI Skin- warm & dry Laboratory Results: Last 24 Hours Test 09/28/17 20:15 09/29/17 06:17 09/29/17 06:36 09/29/17 11:33 Bedside Glucose 188 mg/dl 154 mg/dl 233 mg/dl Prothrombin Time 13.4 SECONDS Prothromb Time International Ratio 1.3 Activated Partial Thromboplast Time 44.7 SECONDS Partial Thromboplastin Ratio 1.7 Sodium Level 133 mmol/L Potassium Level 4.4 mmol/L Chloride Level 96 mmol/L Carbon Dioxide Level 29 mmol/L Anion Gap 8.0 mmol/L Blood Urea Nitrogen 17 mg/dl Creatinine 1.00 mg/dl Est Creatinine Clear Calc Drug Dose 92.2 ml/min Estimated GFR () 95.1 Estimated GFR (Non- 82.0 BUN/Creatinine Ratio 16.8 Random Glucose 169 mg/dl Calcium Level 8.9 mg/dl Chemistry Specimen Hemolysis Test 09/29/17 14:09 09/29/17 16:22 Activated Partial Thromboplast Time 55.2 SECONDS Partial Thromboplastin Ratio 2.1 Bedside Glucose 134 mg/dl Assessment & Plan SOB/HYPOXIA INFLUENZA B CXR showed no infiltrate Received Levaquin in the ER that was changed to Doxy due to QTC prolong Continue Tamiflu to complete 5 days course Continue solumedrol Continue neb treatment Continue oxygen Supplement Sputum cx grew moderate normal julissa Will D/C doxy for now since CXR showed no infiltrate If symptoms worsening or if sputum cx positive, will add abx 09/29 Clinically improves significantly Wheezing improves Will change Solumedrol to prednisone Continue tamiflu to complete 5 days course Bacteremia Blood cx grew gram positive cocci Elevated WBC that is mostly related to steroid Afebrile Continue IV vanco ID on board preliminary Repeat Blood cx no growth 09/29 case discussed with ID and recommended to d/c abx since blood cx seems to be contaminated Vanco was d/c Continue monitor Stable AFIB SVT HR btw 140-170 in ER. Converted back to sinus rhythm with vagal maneuver in the ER HR now in the low 100's Starting on heparin drip Cardiology on board Continue tele monitor ECHO pending 09/29 Now on NSR Rate control Metoprolol changed to 50mg BID Continue heparin drip INR 1.3 Continue coumadin Monitor INR ECHO Showed * Sinus bradycaria was present during the echocardiogram. * The left ventricular wall motion is normal. * There is mild concentric left ventricular hypertrophy. * The LV Ejection Fraction = 60-65%. * Aortic valve sclerosis mild, without significant aortic valvular stenosis. * There is mild mitral regurgitation. * Grade I diastolic dysfunction, (abnormal relaxation pattern). Chest pain Possible related to cough Troponin negative No ischemic changes on EKG Resolved NAUSEA ASSOCIATED WITH ABDOMINAL PAIN Mostly related to acute illness CT abd/pelvis showed no acute process within the abdomen or pelvis. Received IVF Diet advanced as tolerated Diarrhea improves resolved HYPOKALEMIA K stable Continue monitor BMP resolved HYPONATREMIA Na: 135 Continue monitor BMP DM II Hba1c 7 Oral diabetes med on hold Continue Lantus 5U BID HYPOTHYROIDISM TSH: 1.3 Continue levothyroxine HTN Lisinopril on hold BP stable DYSLIPIDEMIA Continue statin ANXIETY/DEPRESSION/PTSD/INSOMNIA continue trazodone HS Stable CHRONIC BACK PAIN continue gabapentin and hydrocodone prn pain Stable TOBACCO ABUSE nicotine patch Counseling on smoking cessation DVT Prophylaxis On heparin drip Disposition Continue tele Code status Full Code Disposition Continue Telemetry Consultants: Cardio Current Inpatient Medications: Current Inpatient Medications Medications (Trade) Dose Ordered Sig/Kimberly Route Start Time Stop Time Status Last Admin Dose Admin Acetaminophen (Tylenol Tab) 650 mg Q4H PRN PO 09/24/17 12:00 10/24/17 11:59 Nitroglycerin (Nitrostat Tab) 0.4 mg UD PRN SL 09/24/17 12:00 10/24/17 11:59 Polyethylene (Miralax Powder Packet) 17 gm DAILY PRN PO 09/24/17 12:00 10/24/17 11:59 Insulin Aspart (novoLOG ASPART) SLIDING SCALE If C... ACHS SC 09/24/17 16:15 10/24/17 16:14 09/29/17 17:09 3 UNITS Glucose (Glucose 40% Gel) 15-30 GRAMS 15 GRAMS... UD PRN PO 09/24/17 12:15 10/24/17 12:14 Glucose (Glucose Chew Tab) 4-8 Tablets 4 Tabl... UD PRN PO 09/24/17 12:15 10/24/17 12:14 Dextrose (Dextrose 50% 50ML Syringe) 25-50ML OF 50% DW IV FOR... UD PRN IV 09/24/17 12:15 10/24/17 12:14 Glucagon (Glucagon Inj) 1 mg UD PRN SQ 09/24/17 12:15 10/24/17 12:14 Nicotine (Nicoderm Cq 14MG Patch) 1 patch QAM TD 09/24/17 15:00 10/24/17 14:59 09/29/17 08:06 1 PATCH Miscellaneous (Remove Nicoderm Patch) 1 ea HS N/A 09/24/17 21:00 10/24/17 20:59 09/28/17 20:59 1 EA Levalbuterol (Xopenex 0.63 Mg/ 3 Ml Neb) 0.63 mg Q6R INH 09/24/17 15:00 10/24/17 14:59 09/29/17 14:15 0.63 MG Methylprednisolone Sodium Succinate 20 mg/Syringe 0.32 ml @ 1.5 mls/min Q8 IV 09/24/17 22:00 10/24/17 21:59 09/29/17 13:35 1.5 MLS/MIN Lorazepam (Ativan Inj) 0.5 mg Q6 PRN IV 09/24/17 12:30 10/24/17 12:29 09/28/17 20:57 0.5 MG Insulin Glargine (Lantus Solostar Pen) 5 units Q12 SC 09/24/17 21:00 10/24/17 20:59 09/29/17 08:10 5 UNITS Aspirin (Ecotrin Tab) 81 mg DAILY PO 09/25/17 09:00 10/25/17 08:59 09/29/17 08:05 81 MG Atorvastatin Calcium (Lipitor Tab) 40 mg DAILY PO 09/25/17 09:00 10/25/17 08:59 09/29/17 08:05 40 MG Gabapentin (Neurontin Cap) 300 mg TID PO 09/24/17 14:45 10/24/17 14:44 09/29/17 13:35 300 MG Acetaminophen/ Hydrocodone Bitart ([place] 10/325 Tab) 1 tab Q6H PRN PO 09/24/17 12:45 10/08/17 12:44 09/29/17 15:49 1 TAB Levothyroxine Sodium (Synthroid Tab) 88 mcg DAILYBB PO 09/25/17 06:00 10/25/17 05:59 09/29/17 06:25 88 MCG Trazodone HCl (Desyrel Tab) 150 mg HS PO 09/24/17 21:00 10/24/17 20:59 09/28/17 21:01 150 MG Lorazepam 0.5 mg/ Syringe 1 ml @ 1 mls/min Q6H PRN IV 09/24/17 14:45 10/24/17 14:44 Miscellaneous (Iv Fluids Completed) 1 ea PRN PRN N/A 09/24/17 16:15 09/24/18 16:14 Heparin Sodium/ Dextrose 500 ml @ 34 mls/hr [id number] PRN IV 09/25/17 03:30 10/25/17 03:29 09/29/17 08:03 34 MLS/HR Metoprolol Tartrate (Lopressor Tab) 50 mg BID PO 09/27/17 21:00 10/27/17 20:59 09/29/17 08:06 50 MG Warfarin Sodium (Coumadin Tab) 7.5 mg DAILY@16 PO 09/28/17 16:00 10/28/17 15:59 09/29/17 15:47 7.5 MG
[2017-09-29] MEDS: TRAZODONE HCL 50 MG TAB PO SCH (20:26)
[2017-09-30] VITALS (10 sets, daily range): BP systolic 100–154; BP diastolic 68–100; PULSE 49–83; TEMP 36.4–37; O2SAT 92–96
[2017-09-30] MEDS: LEVALBUTEROL 0.63MG/3 ML NEB INH SCH ×4 (01:40→19:34)
[2017-09-30] MEDS: LEVOTHYROXINE 88 MCG TAB PO SCH (05:10)
[2017-09-30] MEDS: METHYLPREDNISOLONE IV 20 MG in SYRINGE 0 ML IV SCH (05:11)
[2017-09-30] MEDS: HYDROCODONE/ACETAMI 10/325 TAB PO PRN ×3 (06:26→18:32)
[2017-09-30] MEDS: HEPARIN 25,000 UNIT/500ML D5W 500 ML IV PRN (06:31)
[2017-09-30 06:58] LABS: HEMATOCRIT 52.7 % (42-52); HEMOGLOBIN 18.5 g/dL (14.0-18.0); MEAN CELL VOLUME 89.5 fL (80-100); MEAN CORPUSCULAR HEMOGLOBIN 31.4 pg (25-34); MEAN CORPUSCULAR HGB CONC 35.1 g/dl (32-36); PLATELET COUNT 247 K/uL (130-400); RED CELL DISTRIBUTION WIDTH CV 13.8 % (11.5-14.5); RED CELL DISTRIBUTION WIDTH SD 45.2 fL (36.4-46.3)
[2017-09-30 07:18] LABS: CALCIUM 8.9 mg/dl (8.5-10.1); CREATININE 1.14 mg/dl (0.60-1.40); POTASSIUM 4.2 mmol/L (3.5-5.1)
[2017-09-30 07:20] LABS: INR 1.9 (0.9-1.1)
[2017-09-30 07:25] LABS: PTT PATIENT 70.2 SECONDS (21.0-31.0)
[2017-09-30] MEDS: ASPIRIN 81 MG ECTAB PO SCH (08:07)
[2017-09-30] MEDS: NICOTINE 14 MG/24 HR TDSY TD SCH (08:08)
[2017-09-30] MEDS: METOPROLOL TARTRATE 50 MG TAB PO SCH ×2 (08:08→20:42)
[2017-09-30] MEDS: ATORVASTATIN 40 MG TAB PO SCH (08:08)
[2017-09-30] MEDS: GABAPENTIN 300 MG CAP PO SCH ×3 (08:08→20:44)
[2017-09-30] MEDS: INSULIN GLARGINE SOLOSTAR 100 UNITS/ML 3 ML PEN SC SCH ×2 (08:13→20:49)
[2017-09-30] MEDS: INSULIN ASPART 100 UNITS/ML 3 ML PEN SC SCH ×4 (08:14→20:49)
--- NOTE | 2017-09-30 12:59 | Progress Note ---
Medicine Progress Note Date & Time of Visit: Sep 30, 2017 at 12:30. Subjective Pt was seen and examined Lying in bed with no distress Pt said that he feels much better He said that he has a good night He said that his breathing feels much better Denies any chest pain, palpitation, dizziness Objective Last 8 Hrs Date Time Temp Pulse Resp B/P (MAP) Pulse Ox O2 Delivery O2 Flow Rate FiO2 09/30/17 10:58 36.5 49 20 133/79 (97) 94 Nasal Cannula 2.0 09/30/17 08:00 Room Air 09/30/17 07:52 36.7 70 20 154/100 (118) 92 Room Air 09/30/17 06:57 54 20 96 Nasal Cannula 2.0 Physical Exam: General- No acute distress Head- atraumatic Eyes- PERRL, EOMI ENT- oropharynx clear Neck- supple, no JVD Lungs- +mild wheezing Heart- regular rhythm; no murmur Abdomen- normal bowel sounds, soft Extremities- No calf tenderness Neuro- alert, oriented x 3; PERRL, EOMI Skin- warm & dry Laboratory Results: Last 24 Hours Test 09/29/17 14:09 09/29/17 16:22 09/29/17 20:18 09/30/17 06:42 Activated Partial Thromboplast Time 55.2 SECONDS 70.2 SECONDS Partial Thromboplastin Ratio 2.1 2.7 Bedside Glucose 134 mg/dl 235 mg/dl White Blood Count 23.60 K/uL Red Blood Count 5.89 M/uL Hemoglobin 18.5 g/dL Hematocrit 52.7 % Mean Corpuscular Volume 89.5 fL Mean Corpuscular Hemoglobin 31.4 pg Mean Corpuscular Hemoglobin Concent 35.1 g/dl RDW Standard Deviation 45.2 fL RDW Coefficient of Variation 13.8 % Platelet Count 247 K/uL Mean Platelet Volume 10.0 fL Prothrombin Time 19.4 SECONDS Prothromb Time International Ratio 1.9 Sodium Level 131 mmol/L Potassium Level 4.2 mmol/L Chloride Level 96 mmol/L Carbon Dioxide Level 28 mmol/L Anion Gap 7.0 mmol/L Blood Urea Nitrogen 21 mg/dl Creatinine 1.14 mg/dl Est Creatinine Clear Calc Drug Dose 80.6 ml/min Estimated GFR () 81.1 Estimated GFR (Non- 70.0 BUN/Creatinine Ratio 18.6 Random Glucose 178 mg/dl Calcium Level 8.9 mg/dl Test 09/30/17 06:51 Bedside Glucose 164 mg/dl Assessment & Plan SOB/HYPOXIA INFLUENZA B CXR showed no infiltrate Received Levaquin in the ER that was changed to Doxy due to QTC prolong Continue Tamiflu to complete 5 days course Continue solumedrol Continue neb treatment Continue oxygen Supplement Sputum cx grew moderate normal julissa Will D/C doxy for now since CXR showed no infiltrate If symptoms worsening or if sputum cx positive, will add abx 09/30 Clinically improves significantly Wheezing improves Starting on Prednisone Completed Tamiflu course Bacteremia Blood cx grew gram positive cocci Elevated WBC that is mostly related to steroid Afebrile Continue IV vanco ID on board preliminary Repeat Blood cx no growth 09/30 case discussed with ID and recommended to d/c abx since blood cx seems to be contaminated Vanco was d/c Continue monitor afebrile Stable Elevated Leukocytosis Mostly related to steroid Afebrile Monitor CBC AFIB SVT HR btw 140-170 in ER. Converted back to sinus rhythm with vagal maneuver in the ER HR now in the low 100's Starting on heparin drip Cardiology on board Continue tele monitor ECHO pending 09/30 Now on NSR Rate control Metoprolol changed to 50mg BID Bradycardia on monitor Will discuss with cardio to decrease Metoprol to 25mg at PM Will d/c heparin drip INR 1.9 Continue coumadin Monitor INR ECHO Showed * Sinus bradycaria was present during the echocardiogram. * The left ventricular wall motion is normal. * There is mild concentric left ventricular hypertrophy. * The LV Ejection Fraction = 60-65%. * Aortic valve sclerosis mild, without significant aortic valvular stenosis. * There is mild mitral regurgitation. * Grade I diastolic dysfunction, (abnormal relaxation pattern). Chest pain Possible related to cough Troponin negative No ischemic changes on EKG Resolved NAUSEA ASSOCIATED WITH ABDOMINAL PAIN Mostly related to acute illness CT abd/pelvis showed no acute process within the abdomen or pelvis. Received IVF Diet advanced as tolerated Diarrhea improves resolved HYPOKALEMIA K stable Continue monitor BMP resolved HYPONATREMIA Na: 131 today Continue monitor BMP DM II Hba1c 7 Oral diabetes med on hold Continue Lantus 5U BID HYPOTHYROIDISM TSH: 1.3 Continue levothyroxine HTN Lisinopril on hold, will decrease to 10mg and resume it tomorrow BP stable DYSLIPIDEMIA Continue statin ANXIETY/DEPRESSION/PTSD/INSOMNIA continue trazodone HS Stable CHRONIC BACK PAIN continue gabapentin and hydrocodone prn pain Stable TOBACCO ABUSE nicotine patch Counseling on smoking cessation DVT Prophylaxis On heparin drip, will d/c INR 1.9 Disposition Continue tele Code status Full Code Disposition Continue Telemetry Follow up with PCP Dr. Chaney on 10/02 @ 1:05 AM Follow up with Cardiology on 10/19 @ 10:[address] Reece Consultants: cardio Current Inpatient Medications: Current Inpatient Medications Medications (Trade) Dose Ordered Sig/Kimberly Route Start Time Stop Time Status Last Admin Dose Admin Acetaminophen (Tylenol Tab) 650 mg Q4H PRN PO 09/24/17 12:00 10/24/17 11:59 Nitroglycerin (Nitrostat Tab) 0.4 mg UD PRN SL 09/24/17 12:00 10/24/17 11:59 Polyethylene (Miralax Powder Packet) 17 gm DAILY PRN PO 09/24/17 12:00 10/24/17 11:59 Insulin Aspart (novoLOG ASPART) SLIDING SCALE If C... ACHS SC 09/24/17 16:15 10/24/17 16:14 09/30/17 12:08 5 UNITS Glucose (Glucose 40% Gel) 15-30 GRAMS 15 GRAMS... UD PRN PO 09/24/17 12:15 10/24/17 12:14 Glucose (Glucose Chew Tab) 4-8 Tablets 4 Tabl... UD PRN PO 09/24/17 12:15 10/24/17 12:14 Dextrose (Dextrose 50% 50ML Syringe) 25-50ML OF 50% DW IV FOR... UD PRN IV 09/24/17 12:15 10/24/17 12:14 Glucagon (Glucagon Inj) 1 mg UD PRN SQ 09/24/17 12:15 10/24/17 12:14 Nicotine (Nicoderm Cq 14MG Patch) 1 patch QAM TD 09/24/17 15:00 10/24/17 14:59 09/30/17 08:08 1 PATCH Miscellaneous (Remove Nicoderm Patch) 1 ea HS N/A 09/24/17 21:00 10/24/17 20:59 09/29/17 20:28 1 EA Levalbuterol (Xopenex 0.63 Mg/ 3 Ml Neb) 0.63 mg Q6R INH 09/24/17 15:00 10/24/17 14:59 09/30/17 06:57 0.63 MG Lorazepam (Ativan Inj) 0.5 mg Q6 PRN IV 09/24/17 12:30 10/24/17 12:29 09/28/17 20:57 0.5 MG Insulin Glargine (Lantus Solostar Pen) 5 units Q12 SC 09/24/17 21:00 10/24/17 20:59 09/30/17 08:13 5 UNITS Aspirin (Ecotrin Tab) 81 mg DAILY PO 09/25/17 09:00 10/25/17 08:59 09/30/17 08:07 81 MG Atorvastatin Calcium (Lipitor Tab) 40 mg DAILY PO 09/25/17 09:00 10/25/17 08:59 09/30/17 08:08 40 MG Gabapentin (Neurontin Cap) 300 mg TID PO 09/24/17 14:45 10/24/17 14:44 09/30/17 08:08 300 MG Acetaminophen/ Hydrocodone Bitart ([place] 10/325 Tab) 1 tab Q6H PRN PO 09/24/17 12:45 10/08/17 12:44 09/30/17 12:04 1 TAB Levothyroxine Sodium (Synthroid Tab) 88 mcg DAILYBB PO 09/25/17 06:00 10/25/17 05:59 09/30/17 05:10 88 MCG Trazodone HCl (Desyrel Tab) 150 mg HS PO 09/24/17 21:00 10/24/17 20:59 09/29/17 20:26 150 MG Lorazepam 0.5 mg/ Syringe 1 ml @ 1 mls/min Q6H PRN IV 09/24/17 14:45 10/24/17 14:44 09/29/17 22:29 1 MLS/MIN Miscellaneous (Iv Fluids Completed) 1 ea PRN PRN N/A 09/24/17 16:15 09/24/18 16:14 Heparin Sodium/ Dextrose 500 ml @ 32 mls/hr [id number] PRN IV 09/25/17 03:30 10/25/17 03:29 09/30/17 06:31 34 MLS/HR Metoprolol Tartrate (Lopressor Tab) 50 mg BID PO 09/27/17 21:00 10/27/17 20:59 09/30/17 08:08 50 MG Warfarin Sodium (Coumadin Tab) 7.5 mg DAILY@16 PO 09/28/17 16:00 10/28/17 15:59 09/29/17 15:47 7.5 MG Prednisone (PredniSONE TAB) 20 mg BIDM PO 09/30/17 09:00 10/30/17 08:59 09/30/17 08:39 20 MG
[2017-09-30 14:30] LABS: PTT PATIENT 58.8 SECONDS (21.0-31.0)
[2017-09-30] MEDS ORDERED: WARFARIN SOD 5 MG TAB PO SCH (16:00)
[2017-09-30] MEDS: TRAZODONE HCL 50 MG TAB PO SCH (20:43)
[2017-09-30] MEDS ORDERED: HYDROmorphone INJ 0.5 MG/0.5 ML SYR IV PRN (21:15)
[2017-09-30] MEDS ORDERED: CYCLOBENZAPRINE HCL 5 MG TAB PO PRN (21:15)
--- NOTE | 2017-09-30 21:57 | DIAGNOSTIC IMAGING REPORT ---
ABDOMEN AND PELVIS CT WITHOUT CONTRAST CT DOSE: 1168.28 mGy.cm HISTORY: Acute low back pain with history of kidney stones worsening back pain TECHNIQUE: Multiaxial CT images of the abdomen and pelvis were performed without contrast. A dose lowering technique was utilized adhering to the principles of ALARA. COMPARISON STUDY: CT abdomen and pelvis 09/24/2017. FINDINGS: Bibasilar subpleural reticulation with traction bronchiectasis and only minimal subpleural cystic changes are seen suggesting a fibrotic NSIP pattern. Calcified hilar lymph nodes compatible with prior granulomatous disease. No pneumatosis or pneumoperitoneum. Imaged inferior cardiac chambers are unremarkable. Hepatic steatosis. Gallbladder, spleen and pancreas appear unremarkable. The adrenal glands are also within normal limits. Mild nonspecific bilateral perinephric stranding. Low attenuating lesions of the kidneys bilaterally are better seen on comparison contrast-enhanced study and suggests renal cysts. These appear unchanged. No renal calculi or obstructive uropathy. Ureters and urinary bladder are within normal limits. Calcifications are seen within the central prostate. Small fat filled left inguinal hernia. Mild fusiform aneurysmal dilation of the infrarenal abdominal aorta, 3.0 x 2.8 cm. No pathologic adenopathy. No bowel obstruction or focal bowel wall thickening. Moderate to extensive colonic diverticulosis without CT evidence of acute diverticulitis. Moderate stool volume throughout the colon suggest constipation. Normal appendix. Soft tissues are unremarkable. The bones appear intact. Moderate intervertebral disc space narrowing at L5-S1. IMPRESSION: 1. No acute intra-abdominal or intrapelvic abnormality identified, specifically no renal calculi or obstructive uropathy. 2. Colonic diverticulosis without evidence of acute diverticulitis. 3. Hepatic steatosis. 4. Mild fusiform aneurysmal dilation of the infrarenal abdominal aorta, 3 cm. 5. Prior granulomatous disease. Electronically signed by: Andrea Buckner M.D. 09/30/2017 9:56 PM Dictated Date/Time: 09/30/2017 9:49 PM
[2017-09-30] MEDS ORDERED: [UNRECOGNIZED DRUG - REMARK] SCH (22:00)
[2017-10-01] MEDS ORDERED: PROCHLORPERAZINE INJ 5 MG in SYRINGE 4 ML IV PRN (00:30)
[2017-10-01] MEDS: HYDROCODONE/ACETAMI 10/325 TAB PO PRN ×3 (01:00→11:49)
[2017-10-01 02:04] VITALS: PULSE 54; O2SAT 94
[2017-10-01] MEDS: LEVALBUTEROL 0.63MG/3 ML NEB INH SCH ×2 (02:04→07:16)
[2017-10-01 04:00] VITALS: BP 108/64; PULSE 57; TEMP 36.5; O2SAT 91
[2017-10-01] MEDS: LEVOTHYROXINE 88 MCG TAB PO SCH (05:48)
[2017-10-01 07:07] VITALS: BP 132/83; PULSE 48; TEMP 36.4; O2SAT 92
[2017-10-01 07:25] VITALS: PULSE 66; O2SAT 95
[2017-10-01] MEDS: ATORVASTATIN 40 MG TAB PO SCH (07:32)
[2017-10-01] MEDS: GABAPENTIN 300 MG CAP PO SCH ×2 (07:33→14:00)
[2017-10-01] MEDS: NICOTINE 14 MG/24 HR TDSY TD SCH (07:34)
[2017-10-01] MEDS: ASPIRIN 81 MG ECTAB PO SCH (07:34)
[2017-10-01] MEDS: METOPROLOL TARTRATE 50 MG TAB PO SCH (07:35)
[2017-10-01 07:36] LABS: INR 2.2 (0.9-1.1); PTT PATIENT 32.2 SECONDS (21.0-31.0)
[2017-10-01] MEDS: INSULIN ASPART 100 UNITS/ML 3 ML PEN SC SCH ×2 (07:41→12:07)
[2017-10-01] MEDS: INSULIN GLARGINE SOLOSTAR 100 UNITS/ML 3 ML PEN SC SCH (07:42)
[2017-10-01] MEDS ORDERED: LISINOPRIL 10 MG TAB PO SCH (09:00)
[2017-10-01] MEDS ORDERED: BACLOFEN 10 MG TAB PO ONE (10:30)
[2017-10-01 11:01] LABS: HEMATOCRIT 51.9 % (42-52); HEMOGLOBIN 17.9 g/dL (14.0-18.0); MEAN CELL VOLUME 90.6 fL (80-100); MEAN CORPUSCULAR HEMOGLOBIN 31.2 pg (25-34); MEAN CORPUSCULAR HGB CONC 34.5 g/dl (32-36); MEAN PLATELET VOLUME 9.8 fL (7.4-10.4); PLATELET COUNT 242 K/uL (130-400); RED CELL DISTRIBUTION WIDTH CV 14.1 % (11.5-14.5); RED CELL DISTRIBUTION WIDTH SD 46.7 fL (36.4-46.3); WHITE BLOOD COUNT 21.03 K/uL (4.8-10.8)
[2017-10-01 11:48] VITALS: BP 140/96; PULSE 56; TEMP 36.3; O2SAT 92
--- NOTE | 2017-10-01 13:19 | Progress Note ---
Medicine Progress Note Date & Time of Visit: Oct 01, 2017 at 13:11. Subjective Pt was seen and examined Lying in bed with no distress Pt said that he feels fine He said that his breathing feels much better today Denies any chest pain, palpitation, dizziness and SOB Objective Last 8 Hrs Date Time Temp Pulse Resp B/P (MAP) Pulse Ox O2 Delivery O2 Flow Rate FiO2 10/01/17 12:00 Room Air 10/01/17 11:48 36.3 56 20 140/96 (111) 92 Room Air 10/01/17 08:00 Room Air 10/01/17 07:25 66 20 95 Room Air 10/01/17 07:07 36.4 48 20 132/83 (99) 92 Room Air Physical Exam: General- No acute distress Head- atraumatic Eyes- PERRL, EOMI ENT- oropharynx clear Neck- supple, no JVD Lungs- No crackle Heart- regular rhythm; no murmur Abdomen- normal bowel sounds, soft Extremities- No calf tenderness Neuro- alert, oriented x 3; PERRL, EOMI Skin- warm & dry Laboratory Results: Last 24 Hours Test 09/30/17 13:31 09/30/17 16:51 09/30/17 20:15 10/01/17 06:33 Activated Partial Thromboplast Time 58.8 SECONDS Partial Thromboplastin Ratio 2.3 Bedside Glucose 270 mg/dl 231 mg/dl 155 mg/dl Test 10/01/17 06:58 10/01/17 07:01 10/01/17 12:00 Prothrombin Time 23.1 SECONDS Prothromb Time International Ratio 2.2 Activated Partial Thromboplast Time 32.2 SECONDS Partial Thromboplastin Ratio 1.2 White Blood Count 21.03 K/uL Red Blood Count 5.73 M/uL Hemoglobin 17.9 g/dL Hematocrit 51.9 % Mean Corpuscular Volume 90.6 fL Mean Corpuscular Hemoglobin 31.2 pg Mean Corpuscular Hemoglobin Concent 34.5 g/dl RDW Standard Deviation 46.7 fL RDW Coefficient of Variation 14.1 % Platelet Count 242 K/uL Mean Platelet Volume 9.8 fL Bedside Glucose 254 mg/dl Assessment & Plan SOB/HYPOXIA INFLUENZA B CXR showed no infiltrate Received Levaquin in the ER that was changed to Doxy due to QTC prolong Continue Tamiflu to complete 5 days course Continue solumedrol Continue neb treatment Continue oxygen Supplement Sputum cx grew moderate normal julissa Will D/C doxy for now since CXR showed no infiltrate If symptoms worsening or if sputum cx positive, will add abx 10/01 Clinically improves slightly Will taper prednisone Continue monitor closely Complete course of Tamiflu Bacteremia Blood cx grew gram positive cocci Elevated WBC that is mostly related to steroid Afebrile Continue IV Vanco ID on board Repeat Blood cx no growth AFIB SVT HR btw 140-170 in ER. Converted back to sinus rhythm with vagal maneuver in the ER HR now in the low 100's Starting on heparin drip Cardiology on board Continue tele monitor ECHO pending 10/01 Now on NSR Rate control Continue 50mg BID Heparin drip d/c Continue coumadin 5 mg Follow up with the [facility] INR 2.1 today ECHO * Sinus bradycaria was present during the echocardiogram. * The left ventricular wall motion is normal. * There is mild concentric left ventricular hypertrophy. * The LV Ejection Fraction = 60-65%. * Aortic valve sclerosis mild, without significant aortic valvular stenosis. * There is mild mitral regurgitation. * Grade I diastolic dysfunction, (abnormal relaxation pattern). Chest pain Possible related to cough Troponin negative No ischemic changes on EKG NAUSEA ASSOCIATED WITH ABDOMINAL PAIN Mostly related to acute illness CT abd/pelvis showed no acute process within the abdomen or pelvis. Received IVF Diet advanced as tolerated Diarrhea improves resolved HYPOKALEMIA K stable Continue monitor BMP HYPONATREMIA Na: 135 Continue monitor BMP DM II Hba1c 7 Oral diabetes med on hold Continue Lantus 5U BID HYPOTHYROIDISM TSH: 1.3 Continue levothyroxine HTN Lisinopril on hold BP stable DYSLIPIDEMIA Continue statin ANXIETY/DEPRESSION/PTSD/INSOMNIA continue trazodone HS Stable CHRONIC BACK PAIN continue gabapentin and hydrocodone prn pain Pt said that flexeril does not help Starting on baclofen 10mg Stable TOBACCO ABUSE nicotine patch Counseling on smoking cessation DVT Prophylaxis heparin drip d/c On Coumadin INR 2.1 Disposition Continue tele Code status Full Code Disposition Continue Telemetry Consultants: Cardio Current Inpatient Medications: Current Inpatient Medications Medications (Trade) Dose Ordered Sig/Kimberly Route Start Time Stop Time Status Last Admin Dose Admin Acetaminophen (Tylenol Tab) 650 mg Q4H PRN PO 09/24/17 12:00 10/24/17 11:59 09/30/17 20:45 650 MG Nitroglycerin (Nitrostat Tab) 0.4 mg UD PRN SL 09/24/17 12:00 10/24/17 11:59 Polyethylene (Miralax Powder Packet) 17 gm DAILY PRN PO 09/24/17 12:00 10/24/17 11:59 Insulin Aspart (novoLOG ASPART) SLIDING SCALE If C... ACHS SC 09/24/17 16:15 10/24/17 16:14 10/01/17 12:07 3 UNITS Glucose (Glucose 40% Gel) 15-30 GRAMS 15 GRAMS... UD PRN PO 09/24/17 12:15 10/24/17 12:14 Glucose (Glucose Chew Tab) 4-8 Tablets 4 Tabl... UD PRN PO 09/24/17 12:15 10/24/17 12:14 Dextrose (Dextrose 50% 50ML Syringe) 25-50ML OF 50% DW IV FOR... UD PRN IV 09/24/17 12:15 10/24/17 12:14 Glucagon (Glucagon Inj) 1 mg UD PRN SQ 09/24/17 12:15 10/24/17 12:14 Nicotine (Nicoderm Cq 14MG Patch) 1 patch QAM TD 09/24/17 15:00 10/24/17 14:59 10/01/17 07:34 1 PATCH Miscellaneous (Remove Nicoderm Patch) 1 ea HS N/A 09/24/17 21:00 10/24/17 20:59 09/30/17 20:42 1 EA Levalbuterol (Xopenex 0.63 Mg/ 3 Ml Neb) 0.63 mg Q6R INH 09/24/17 15:00 10/24/17 14:59 10/01/17 07:16 0.63 MG Lorazepam (Ativan Inj) 0.5 mg Q6 PRN IV 09/24/17 12:30 10/24/17 12:29 09/28/17 20:57 0.5 MG Insulin Glargine (Lantus Solostar Pen) 5 units Q12 SC 09/24/17 21:00 10/24/17 20:59 10/01/17 07:42 5 UNITS Aspirin (Ecotrin Tab) 81 mg DAILY PO 09/25/17 09:00 10/25/17 08:59 Future hold 10/01/17 07:34 81 MG Atorvastatin Calcium (Lipitor Tab) 40 mg DAILY PO 09/25/17 09:00 10/25/17 08:59 10/01/17 07:32 40 MG Gabapentin (Neurontin Cap) 300 mg TID PO 09/24/17 14:45 10/24/17 14:44 10/01/17 07:33 300 MG Levothyroxine Sodium (Synthroid Tab) 88 mcg DAILYBB PO 09/25/17 06:00 10/25/17 05:59 10/01/17 05:48 88 MCG Trazodone HCl (Desyrel Tab) 150 mg HS PO 09/24/17 21:00 10/24/17 20:59 09/30/17 20:43 150 MG Lorazepam 0.5 mg/ Syringe 1 ml @ 1 mls/min Q6H PRN IV 09/24/17 14:45 10/24/17 14:44 09/29/17 22:29 1 MLS/MIN Miscellaneous (Iv Fluids Completed) 1 ea PRN PRN N/A 09/24/17 16:15 09/24/18 16:14 Metoprolol Tartrate (Lopressor Tab) 50 mg BID PO 09/27/17 21:00 10/27/17 20:59 10/01/17 07:35 50 MG Prednisone (PredniSONE TAB) 20 mg BIDM PO 09/30/17 09:00 10/30/17 08:59 10/01/17 07:33 20 MG Warfarin Sodium (Coumadin Tab) 5 mg DAILY@16 PO 09/30/17 16:00 10/28/17 15:59 Future hold 09/30/17 16:37 5 MG Lisinopril (Zestril Tab) 10 mg QAM PO 10/01/17 09:00 10/31/17 08:59 10/01/17 07:34 10 MG Hydromorphone HCl (Dilaudid Inj) 0.5 mg Q3H PRN IV 09/30/17 21:15 10/14/17 21:14 Cyclobenzaprine HCl (Flexeril Tab) 5 mg TID PRN PO 09/30/17 21:15 10/30/17 21:14 10/01/17 00:59 5 MG Acetaminophen/ Hydrocodone Bitart ([place] 10/325 Tab) 1 tab Q4H PRN PO 09/30/17 22:45 10/08/17 12:44 10/01/17 11:49 1 TAB Prochlorperazine Edisylate 5 mg/ Syringe 5 ml @ 5 mls/min Q6H PRN IV 10/01/17 00:30 10/31/17 00:29 10/01/17 01:00 5 MLS/MIN
[2017-10-01] MEDS ORDERED: PRD20 PO (13:28)
[2017-10-01] MEDS ORDERED: METO50TA16 PO (13:28)
[2017-10-01] MEDS ORDERED: CMD5 PO (13:28)
[2017-10-01] MEDS ORDERED: LSN10 PO (13:28)
--- NOTE | 2017-10-01 13:52 | Discharge Instructions ---
Discharge Instructions Date of Service Oct 01, 2017. Admission Reason for Admission: Influenza,Svt Discharge Discharge Diagnosis / Problem: Afib B, Influenza B, DM type 2, HTN Discharge Goals Goal(s): Decrease discomfort, Improve function, Improve disease control Activity Recommendations Activity Limitations: resume your previous activity (as tolerated ) . Instructions / Follow-Up Instructions / Follow-Up Follow up appointment with your primary care provider Dr. Chaney on 10/02 @ 1:05 PM Follow up appointment with cardiology Dr. Reece on October 19 @ 10:45 AM Follow up with the Coumadin clinic to monitor your INR. (INR 2.2 today) ( your physician will order for PT/INR) Continue Coumadin 5 mg Continue prednisone taper Monitor blood sugar Fall precaution Medication Instructions: Coumadin * Warfarin is a medicine prescribed to prevent blood clots/stroke * Warfarin will thin your blood and help prevent new clots * Take your medications exactly as directed * Never skip a dose. Never take a double dose. If you miss a dose, take it as soon as you remember * It is important for your doctor to monitor your prothrombin time (PT). This is a lab test * Keep your appointment for lab tests Risk of Adverse Drug Reactions and Interactions: * Warfarin increases your risk of bleeding * The food you eat and other medications you take can affect how Warfarin works in your body such as green leaf and vegetable * Ask your doctor about daily aspirin therapy * It is very important to talk with your doctor about all of the other medicines , antibiotics, vitamins or herbal products that you are taking * All of your medication must be approved by your doctor, including new medicines, as well as medicines you have taken before you started taking Warfarin * Avoid NSAIDs such as Ibuprofen, motrin, naproxen, Aleve, Advil, Meloxicam, Celebrex,... Diet: * In order for Warfarin to work properly, it is important to keep your intake of Vitamin K as consistent as possible * You should avoid any sudden change in Vitamin K intake * Report any significant changes in your diet or weight to your doctor Call your Primary Care doctor if you experience any of the following: * Swelling or Pain in your leg * Sudden, continuous pain deep in a muscle * Pain that worsens when you are active or when you stand still for a long time * Chest Pain * Sudden Shortness of Breath * Rapid or pounding heart beat * Fainting * Dizziness * Cough with blood or bloody sputum * Sweating more than normal * Bruises * Heavy or uncontrolled bleeding * Blood in your urine, stool or vomit * Black or tarry stools Follow Up: It is important for you to keep your follow up appointments with your medical provider. Current Hospital Diet Patient's current hospital diet: Diabetes Type 2 Diet, AHA Diet (Heart Healthy) Discharge Diet Recommended Diet: AHA Diet (Heart Healthy), Diabetes Type 2 Diet Pending Studies Studies pending at discharge: no Laboratory Results Hemoglobin A1c Test 09/25/17 06:59 Range/Units Estimated Average Glucose 154 mg/dl Hemoglobin A1c 7.0 H 4.5-5.6 % Lipid Panel Test 09/25/17 06:59 Range/Units Triglycerides Level 137 0-150 mg/dl Cholesterol Level 194 0-200 mg/dl HDL Cholesterol 31 mg/dl Cholesterol/HDL Ratio 6.3 LDL Cholesterol, Calculated 137 mg/dl Medical Emergencies . Who to Call and When: Medical Emergencies: If at any time you feel your situation is an emergency, please call 911 immediately. . Non-Emergent Contact Non-Emergency issues call your: Primary Care Provider, Military Source Operations Specialist Call Non-Emergent contact if: you have any medication questions . . "Provider Documentation" section prepared by Clinton Hanna. .
[2017-10-01 13:54] VITALS: BP 140/96; PULSE 56; TEMP 36.3; O2SAT 92
[2017-10-01] MEDS ORDERED: LRS10 PO (14:31)
[2017-10-01] MEDS ORDERED: XPNINS INH (14:32)
--- NOTE | 2017-10-02 06:55 | Discharge Summary ---
Discharge Summary Date of Service Oct 01, 2017. Discharge Summary Admission Date: Sep 24, 2017 at 14:08 Discharge Date: Oct 01, 2017 Discharge Disposition: Home Principal Diagnosis: INFLUENZA B SOB/Hypoxia Secondary Diagnoses/Problems: AFIB SVT NAUSEA ASSOCIATED WITH ABDOMINAL PAIN HYPOKALEMIA HYPONATREMIA DM TYPE 2 Procedures: ABDOMEN AND PELVIS CT WITHOUT CONTRAST CT DOSE: 1168.28 mGy.cm HISTORY: Acute low back pain with history of kidney stones worsening back pain TECHNIQUE: Multiaxial CT images of the abdomen and pelvis were performed without contrast. A dose lowering technique was utilized adhering to the principles of ALARA. COMPARISON STUDY: CT abdomen and pelvis 09/24/2017. FINDINGS: Bibasilar subpleural reticulation with traction bronchiectasis and only minimal subpleural cystic changes are seen suggesting a fibrotic NSIP pattern. Calcified hilar lymph nodes compatible with prior granulomatous disease. No pneumatosis or pneumoperitoneum. Imaged inferior cardiac chambers are unremarkable. Hepatic steatosis. Gallbladder, spleen and pancreas appear unremarkable. The adrenal glands are also within normal limits. Mild nonspecific bilateral perinephric stranding. Low attenuating lesions of the kidneys bilaterally are better seen on comparison contrast-enhanced study and suggests renal cysts. These appear unchanged. No renal calculi or obstructive uropathy. Ureters and urinary bladder are within normal limits. Calcifications are seen within the central prostate. Small fat filled left inguinal hernia. Mild fusiform aneurysmal dilation of the infrarenal abdominal aorta, 3.0 x 2.8 cm. No pathologic adenopathy. No bowel obstruction or focal bowel wall thickening. Moderate to extensive colonic diverticulosis without CT evidence of acute diverticulitis. Moderate stool volume throughout the colon suggest constipation. Normal appendix. Soft tissues are unremarkable. The bones appear intact. Moderate intervertebral disc space narrowing at L5-S1. IMPRESSION: 1. No acute intra-abdominal or intrapelvic abnormality identified, specifically no renal calculi or obstructive uropathy. 2. Colonic diverticulosis without evidence of acute diverticulitis. 3. Hepatic steatosis. 4. Mild fusiform aneurysmal dilation of the infrarenal abdominal aorta, 3 cm. 5. Prior granulomatous disease. Electronically signed by: Andrea Buckner M.D. 09/30/2017 9:56 PM Dictated Date/Time: 09/30/2017 9:[address] OF THE ABDOMEN AND PELVIS WITH CONTRAST CLINICAL HISTORY: Abdominal distention. COMPARISON STUDY: CT of the abdomen and pelvis March 29, 2011. TECHNIQUE: Following IV administration of 92 mL of Optiray-320, axial images of the abdomen and pelvis were obtained from the lung bases to the proximal femurs. Images were reviewed in the axial, sagittal, and coronal planes. IV contrast was administered without complication. A dose lowering technique was utilized adhering to the principles of ALARA. CT DOSE: 1405.14 mGy.cm FINDINGS: Visualized portions of the lower lungs demonstrate subpleural reticulation with mild traction bronchiectasis and suspected honeycombing most evident within the lingula. There are calcified mediastinal and bilateral hilar lymph nodes. Fatty infiltration of the liver is noted. A 1.4 cm segment 5 hypodense hepatic lesion is unchanged since CT of March 29, 2011. This is benign given stability. 6 mm left lower lobe pulmonary nodule is unchanged. This is benign given stability. The spleen, adrenal glands and pancreas are normal. There are innumerable bilateral renal lesions. The larger lesions measure water attenuation and reflect cysts. There are numerous subcentimeter renal lesions which are too small to characterize but likely reflect cysts as well. There is a 3 cm infrarenal abdominal aortic aneurysm without evidence for rupture. There is no evidence for a bowel obstruction. Note is made of colonic diverticulosis without evidence for acute diverticulitis. The appendix is normal. There is no lymphadenopathy. No suspicious osseous lesion is present. IMPRESSION: 1. No acute process within the abdomen or pelvis. 2. Subpleural reticulation with mild traction bronchiectasis and probable honeycombing within the lingula which is consistent with interstitial lung disease with a UIP pattern. 3. Fatty liver. 4. Sigmoid diverticulosis without evidence for acute diverticulitis. 5. 3 cm infrarenal abdominal aortic aneurysm. No rupture. Electronically signed by: Vinicius Olea M.D. 09/24/2017 10:21 AM Dictated Date/Time: 09/24/2017 10:08 AM Interpretation Summary * Name: JASON EVANS Study Date: 09/26/2017 06:09 AM BP: 117/71 mmHg * Patient Location: 44 HR: 60 * : 1960 (M/d/yyyy) Gender: Male Height: 68 in * Age: 57 yrs Ethnicity: [place] Weight: 207 lb * Ordering Physician: AYAAN MARTINEZ MD * Performed By: Savannah Etienne RCS * * Reason For Study: CARDIOMEGALY * BSA: 2.1 m2 * The study was technically adequate. * -- Conclusions -- * Sinus bradycardia was present during the echocardiogram. * The left ventricular wall motion is normal. * There is mild concentric left ventricular hypertrophy. * The LV Ejection Fraction = 60-65%. * Aortic valve sclerosis mild, without significant aortic valvular stenosis. * There is mild mitral regurgitation. * Grade I diastolic dysfunction, (abnormal relaxation pattern). Procedure Details * A complete two-dimensional transthoracic echocardiogram was performed (2D, M- mode, Doppler and color flow Doppler). Left Ventricle * The left ventricle is normal in size. * There is mild concentric left ventricular hypertrophy. * Left ventricular systolic function is normal. * Ejection Fraction = 60-65%. * The left ventricular wall motion is normal. Right Ventricle * The right ventricle is normal size. * The right ventricular systolic function is normal as assessed by tricuspid annular plane systolic excursion (TAPSE) (normal >1.5 cm). Atria * The left atrial size is normal. * Right atrial size is normal. * There is no evidence of atrial septal defect, but resolution does not allow assessment for a patent foramen ovale. Mitral Valve * The mitral valve is normal. * There is no mitral valve stenosis. * There is mild mitral regurgitation. Tricuspid Valve * The tricuspid valve is normal. * There is no tricuspid stenosis. * Significant tricuspid regurgitation is absent. Aortic Valve * The aortic valve is trileaflet. * Aortic valve sclerosis mild, without significant aortic valvular stenosis. * Aortic stenosis is absent. * There is no significant aortic regurgitation. Pulmonic Valve * The pulmonary valve is not well seen, but the Doppler examination is normal without significant regurgitation or stenosis. Great Vessels * The aortic root and proximal ascending aorta are normal sized. Pericardium/Pleural * There is no pericardial effusion. Great Vessels * Normal inferior vena cava diameter and respiratory variation suggests normal central venous pressure. Left Ventricular Diastolic Function * Grade I diastolic dysfunction, (abnormal relaxation pattern). Consultations: Cardio Medication Reconciliation New Medications: Baclofen (Baclofen) 10 Mg Tab 10 MG PO DAILY PRN for Muscle Spasms for 30 Days, #30 TAB hold for drowsiness and lethargy Levalbuterol (Levalbuterol HCl) 0.63 Mg/3 Ml Nebu 0.63 MG INH Q8H PRN for SOB/Wheezing for 7 Days Lisinopril (Zestril) 10 Mg Tab 10 MG PO QAM for 30 Days, #30 TAB Metoprolol Tartrate (Lopressor) (Lopressor) 50 Mg Tab 50 MG PO BID for 30 Days, #60 TAB Prednisone (Prednisone) 20 Mg Tab 20 MG PO UD for 8 Days, TAB take 40mg for 2 days, then 30mg for 2 days, then 20 mg for 2 days, then 10 mg for 2 days. Warfarin Sod (Coumadin) 5 Mg Tab 5 MG PO DAILY@16 for 30 Days, TAB Continued Medications: Aspirin (Aspirin Ec) 81 Mg Tab 81 MG PO DAILY Atorvastatin (Lipitor) 40 Mg Tab 1 TAB PO DAILY Gabapentin (Neurontin) 100 Mg Cap 300 MG PO TID, CAP PT TAKES 1-3 TABS DAILY Hydrocodone/Acetaminophen (Leigh 10/325 Tab) 1 Tab Tab 1 TAB PO Q6H PRN for Pain, TAB Levothyroxine Sodium (Synthroid) 88 Mcg Tab 88 MCG PO DAILY, TAB Metformin Hcl (Glucophage) 1,000 Mg Tab 1000 MG PO BID, TAB Trazodone Hcl (Trazodone) 50 Mg Tab 3 TAB PO HS, TAB Discontinued Medications: Lisinopril (Prinivil) 20 Mg Tab 20 MG PO DAILY Admission Information HPI (per Admitting provider): Pt is 57 y/o M with PMH DM II, hypothyroidism, hypertension, dyslipidemia, anxiety, depression, PTSD, tobacco abuse presented to ER with complaint of shortness of breath. Patient reports 2 days ago started with sudden onset of diffuse myalgias and arthralgias, chills, sweats, productive cough of green/ yellow sputum. Patient also started with dizziness, nausea, vomiting with drinking or eating, diarrhea 4-5 episodes. Last episode of diarrhea and vomiting last evening. patient reports has been coughing a lot and since started with upper abdominal discomfort and lower chest discomfort aggravated with coughing. Patient denies any known history of COPD however has been smoker 40 years. Patient reports took 1 tablet of his 's prednisone yesterday thought that may have helped some. Patient reports woke up this morning with increased shortness of breath denies any palpitations. Patient reports has not been eating or drinking secondary to nausea vomiting and diarrhea. Upon arrival to ER patient was noted to be in SVT 140s-170. Patient converted prior to adenosine being given. ER reports had patient perform vagal maneuver. Patient reports less shortness of breath but still feels "winded". States upper abdomen feels less tender since ED arrival. Denies hematemesis, hematochezia, melena, hemoptysis, HENDERSON, syncope, vision changes, neck pain, orthopnea, palpitations, choking, otalgia, paresthesias, extremity weakness, extremity edema, rashes, urinary symptoms. In the ER patient temperature 37.5C, pulse 160 down to 78, respirations 29 down to 19, 87-92% on room air up to 96% on 4 L nasal cannula. given 1 L NSS, Solu-Medrol 125 mg IV, DuoNeb, Levaquin 750 mg IV, Tamiflu, fentanyl 50 mcg. Physical Exam (per Admitting): General Appearance: WD/WN, no apparent distress Head: normocephalic, atraumatic Eyes: normal inspection, PERRL, EOMI, sclerae normal ENT: hearing grossly normal, pharynx normal, + pertinent finding (mucous membranes dry) Neck: supple, no JVD, trachea midline Respiratory/Chest: no respiratory distress, no accessory muscle use, + wheezing (+expiratory wheezing scattered throughout), + pertinent finding (+ tenderness to palation bilateral and mid lower chest) Cardiovascular: regular rate, rhythm, no murmur, normal peripheral pulses Abdomen/GI: normal bowel sounds, soft, + pertinent finding (+tenderness to palpation across enitre upper abdomen without rebound or guarding) Back: no CVA tenderness Extremities/Musculoskelatal: no calf tenderness, normal capillary refill, no pedal edema, normal range of motion Neurologic/Psych: alert, normal mood/affect, oriented x 3 Skin: normal color, warm/dry Hospital Course SOB/HYPOXIA INFLUENZA B CXR showed no infiltrate Received Levaquin in the ER that was changed to Doxy due to QTC prolong Continue Tamiflu to complete 5 days course Continue solumedrol Continue neb treatment Continue oxygen Supplement Sputum cx grew moderate normal julissa Will D/C doxy for now since CXR showed no infiltrate If symptoms worsening or if sputum cx positive, will add abx 10/01 Clinically improves slightly Will taper prednisone Continue monitor closely Complete course of Tamiflu Bacteremia Blood cx grew gram positive cocci Elevated WBC that is mostly related to steroid Afebrile Continue IV Vanco ID on board Repeat Blood cx no growth AFIB SVT HR btw 140-170 in ER. Converted back to sinus rhythm with vagal maneuver in the ER HR now in the low 100's Starting on heparin drip Cardiology on board Continue tele monitor ECHO pending 10/01 Now on NSR Rate control Continue 50mg BID Heparin drip d/c Continue coumadin 5 mg Follow up with the coag clinic INR 2.1 today ECHO * Sinus bradycaria was present during the echocardiogram. * The left ventricular wall motion is normal. * There is mild concentric left ventricular hypertrophy. * The LV Ejection Fraction = 60-65%. * Aortic valve sclerosis mild, without significant aortic valvular stenosis. * There is mild mitral regurgitation. * Grade I diastolic dysfunction, (abnormal relaxation pattern). Chest pain Possible related to cough Troponin negative No ischemic changes on EKG NAUSEA ASSOCIATED WITH ABDOMINAL PAIN Mostly related to acute illness CT abd/pelvis showed no acute process within the abdomen or pelvis. Received IVF Diet advanced as tolerated Diarrhea improves resolved HYPOKALEMIA K stable Continue monitor BMP HYPONATREMIA Na: 135 Continue monitor BMP DM II Hba1c 7 Oral diabetes med on hold Continue Lantus 5U BID HYPOTHYROIDISM TSH: 1.3 Continue levothyroxine HTN Lisinopril on hold BP stable DYSLIPIDEMIA Continue statin ANXIETY/DEPRESSION/PTSD/INSOMNIA continue trazodone HS Stable CHRONIC BACK PAIN continue gabapentin and hydrocodone prn pain Pt said that flexeril does not help Starting on baclofen 10mg Stable TOBACCO ABUSE nicotine patch Counseling on smoking cessation DVT Prophylaxis heparin drip d/c On Coumadin INR 2.1 Disposition Continue tele Code status Full Code Disposition Continue Telemetry Total time spent on discharge = 35 minutes This includes examination of the patient, discharge planning, medication reconciliation, and communication with other providers. Discharge Instructions Discharge Instructions Date of Service Oct 01, 2017. Admission Reason for Admission: Influenza,Svt Discharge Discharge Diagnosis / Problem: Afib B, Influenza B, DM type 2, HTN Discharge Goals Goal(s): Decrease discomfort, Improve function, Improve disease control Activity Recommendations Activity Limitations: resume your previous activity (as tolerated ) . Instructions / Follow-Up Instructions / Follow-Up Follow up appointment with your primary care provider Dr. Chaney on 10/02 @ 1:05 PM Follow up appointment with cardiology Dr. Reece on October 19 @ 10:45 AM Follow up with the Coumadin clinic to monitor your INR. (INR 2.2 today) ( your physician will order for PT/INR) Continue Coumadin 5 mg Continue prednisone taper Monitor blood sugar Fall precaution Medication Instructions: Coumadin * Warfarin is a medicine prescribed to prevent blood clots/stroke * Warfarin will thin your blood and help prevent new clots * Take your medications exactly as directed * Never skip a dose. Never take a double dose. If you miss a dose, take it as soon as you remember * It is important for your doctor to monitor your prothrombin time (PT). This is a lab test * Keep your appointment for lab tests Risk of Adverse Drug Reactions and Interactions: * Warfarin increases your risk of bleeding * The food you eat and other medications you take can affect how Warfarin works in your body such as green leaf and vegetable * Ask your doctor about daily aspirin therapy * It is very important to talk with your doctor about all of the other medicines , antibiotics, vitamins or herbal products that you are taking * All of your medication must be approved by your doctor, including new medicines, as well as medicines you have taken before you started taking Warfarin * Avoid NSAIDs such as Ibuprofen, motrin, naproxen, Aleve, Advil, Meloxicam, Celebrex,... Diet: * In order for Warfarin to work properly, it is important to keep your intake of Vitamin K as consistent as possible * You should avoid any sudden change in Vitamin K intake * Report any significant changes in your diet or weight to your doctor Call your Primary Care doctor if you experience any of the following: * Swelling or Pain in your leg * Sudden, continuous pain deep in a muscle * Pain that worsens when you are active or when you stand still for a long time * Chest Pain * Sudden Shortness of Breath * Rapid or pounding heart beat * Fainting * Dizziness * Cough with blood or bloody sputum * Sweating more than normal * Bruises * Heavy or uncontrolled bleeding * Blood in your urine, stool or vomit * Black or tarry stools Follow Up: It is important for you to keep your follow up appointments with your medical provider. Current Hospital Diet Patient's current hospital diet: Diabetes Type 2 Diet, AHA Diet (Heart Healthy) Discharge Diet Recommended Diet: AHA Diet (Heart Healthy), Diabetes Type 2 Diet Pending Studies Studies pending at discharge: no Laboratory Results Hemoglobin A1c Test 09/25/17 06:59 Range/Units Estimated Average Glucose 154 mg/dl Hemoglobin A1c 7.0 H 4.5-5.6 % Lipid Panel Test 09/25/17 06:59 Range/Units Triglycerides Level 137 0-150 mg/dl Cholesterol Level 194 0-200 mg/dl HDL Cholesterol 31 mg/dl Cholesterol/HDL Ratio 6.3 LDL Cholesterol, Calculated 137 mg/dl Medical Emergencies . Who to Call and When: Medical Emergencies: If at any time you feel your situation is an emergency, please call 911 immediately. . Non-Emergent Contact Non-Emergency issues call your: Primary Care Provider, Health Care Sanitary Technician Call Non-Emergent contact if: you have any medication questions . . "Provider Documentation" section prepared by Clinton Hanna. . Additional Copies To Roseann Chaney M.D. (MEDICAL)
== END 2017-10-01 14:37 | disposition home or self-care (01) | DRG 194 ==
LOC: C.EDB 08:52 → ENRESERV 12:39 → OBSVTOIN 14:08 → C.2T 14:08
PROVIDERS: ADMIT Hospitalist; ATTEND Internal Medicine
DX: J10.1 Influenza due to other identified influenza virus with other respiratory manifestations (principal); E87.1 Hypo-osmolality and hyponatremia; I47.1 Supraventricular tachycardia; F33.1 Major depressive disorder, recurrent, moderate; E78.5 Hyperlipidemia, unspecified; I10 Essential (primary) hypertension; E03.9 Hypothyroidism, unspecified; R06.02 Shortness of breath; R09.02 Hypoxemia; E87.6 Hypokalemia; R19.7 Diarrhea, unspecified; R11.2 Nausea with vomiting, unspecified; R05 Cough; R07.9 Chest pain, unspecified; I48.91 Unspecified atrial fibrillation; E11.319 Type 2 diabetes mellitus with unspecified diabetic retinopathy without macular edema; E11.40 Type 2 diabetes mellitus with diabetic neuropathy, unspecified; D72.829 Elevated white blood cell count, unspecified; T38.0X5A Adverse effect of glucocorticoids and synthetic analogues, initial encounter; M54.9 Dorsalgia, unspecified; G89.29 Other chronic pain; F43.10 Post-traumatic stress disorder, unspecified; F41.9 Anxiety disorder, unspecified; G47.00 Insomnia, unspecified; F17.210 Nicotine dependence, cigarettes, uncomplicated; Z79.82 Long term (current) use of aspirin; Z79.84 Long term (current) use of oral hypoglycemic drugs; Z79.899 Other long term (current) drug therapy

== ENCOUNTER 2018-11-15 17:55 | Inpatient (IN) ==
--- OUTSIDE RECORDS SUMMARY | 2018-11-15 17:59 | External Medical Summary | Continuity of Care Document ---
:1960 Author Name Isidoro Zhao Address Unavailable Unavailable , Care Team Providers Name Role Phone Rica Laurent Unavailable [email or web address] [place] OLIVEIRA Unavailable [email or web address] Gutierrez DO Unavailable [email or web address] Rebekah Soria M.D. Unavailable [email or web address] PCP, UNKNOWN Unavailable Unavailable Unavailable Unavailable Unavailable Problems Anxiety (300.00) (F41.9) Hepatitis (573.3) (K75.9) Diabetes mellitus (250.00) (E11.9) Hypothyroidism (244.9) (E03.9) Pain in joint of right shoulder (719.41) (M25.511) Hypertension (401.9) (I10) Sinusitis (473.9) (J32.9) Nicotine dependence (305.1) (F17.200) Peripheral neuropathy (356.9) (G62.9) Nephrolithiasis (592.0) (N20.0) Hyperlipidemia (272.4) (E78.5) Attention deficit disorder without hyperactivity (314.00) (F 98.8) Lower back pain (724.2) (M54.5) Allergies and Adverse Reactions No Known Drug Allergies (Allergy) Medications ALPRAZolam 2 MG Oral Tablet; TAKE 1 TABLET DAILY AT BEDTIME. Cece Soria Start: 07-Nov-2012 Quantity: 30 Refills: 0 Amphetamine-Dextroamphetamine 20 MG Oral Tablet; TAKE 1 TABLET EVERY MORNING Cece Soria Start: 28-Oct-2012 Quantity: 30 Refills: 0 Hydrocodone-Acetaminophen 10-650 MG TABS; TAKE 1 TABLE T 4 TIMES DAILY. Cece Soria Start: 12-Aug-2012 Quantity: 120 Refills: 3 Carisoprodol 350 MG Oral Tablet; TAKE 1 TABLET BY MOUT H 3 TIMES DAILY Cece Soria Start: 03-Sep-2012 Quantity: 90 Refills: 5 metFORMIN HCl - 500 MG Oral Tablet; take 2 tablets by mouth twice a day with meals BERNA Gama Start: 31-May-2011 Quantity: 360 Refills: 4 Atorvastatin Calcium 20 MG Oral Tablet; TAKE 1 TABLET DAILY AT BEDTIME. BERNA Gama Start: 19-Sep-2012 Quantity: 90 Refills: 3 Fenofibrate 160 MG Oral Tablet; TAKE 1 TABLET DAILY. ROXANNE Segura Start: 08-Apr-2012 Quantity: 30 Refills: 0 Ketoconazole 2 % External Cream; APPLY SPARINGLY TO AF FECTED AREA(S) ONCE DAILY Cece Soria Start: 20-Nov-2011 Quantity: 60 Refills: 5 Aspirin 81 MG TABS; TAKE 1 TABLET DAILY. Refills: 0 Levothyroxine Sodium 88 MCG Oral Tablet; TAKE 1 TABLET DAILY DIRECTED. BERNA Gama Start: 06-Feb-2012 Quantity: 90 Refills: 3 Meloxicam 7.5 MG Oral Tablet; TAKE 1 TABLET TWICE NELL Y WITH FOOD. Cece Soria Start: 16-Oct-2011 Quantity: 60 Refills: 5 OneTouch UltraSoft Lancets; test once daily Refills: 0 OneTouch Ultra Blue In Vitro Strip; test once daily Refills: 0 Procedures History of Hernia Repair Status: Complet ed History of Shoulder Surgery Status: Comp leted Immunizations Pneumococcal polysaccharide vaccine, 23 valent On: 12-Feb-20 10 Lot #: [id number], [employer] Family History Unknown Family Member Family history of Reported Family History Of Status: Active Comments: Family History Heart Disease Social History - Smoking Status Current every day smoker Plan of Treatment Planned Observations Planned Goals not documented Results No Known Results Results not documented
[2018-11-15] MEDS ORDERED: SODIUM CHLORIDE 0.9% 1000ML 2,000 ML IV ONE (18:17)
[2018-11-15 18:27] LABS: Hematocrit (blood only) 53.1 % (42-52); Hemoglobin 18.8 g/dL (14.0-18.0); Mean Corpuscular Hgb Conc 35.4 g/dL (32-36); Platelet Count 233 K/uL (130-400); RDW Standard Deviation 42.6 fL (36.4-46.3); White Blood Count 13.18 K/uL (4.8-10.8)
[2018-11-15 18:51] LABS: Alanine Aminotransferase 81 U/L (12-78); Albumin Globulin Ratio 1.1 (0.9-2); Albumin Level 3.9 gm/dl (3.4-5.0); Alkaline Phosphatase 107 U/L (45-117); Aspartate Aminotransferase 35 U/L (15-37); BUN Creatinine Ratio 12.4 (10-20); Bilirubin Direct < 0.1 mg/dl (0-0.2); Bilirubin,Total 0.3 mg/dl (0.2-1); Blood Urea Nitrogen 18 mg/dl (7-18); Calcium 9.5 mg/dl (8.5-10.1); Carbon Dioxide 21 mmol/L (21-32); Chloride 99 mmol/L (98-107); Creatinine Clr Calc Pharmacy 62.9 ml/min; Est GFR (African American) 60.7; Est GFR (Non-African American) 52.4; Globulin 3.5 gm/dl (2.5-4.0); Glucose 494 mg/dl (70-99); Magnesium 2.2 mg/dl (1.8-2.4); Phosphorus 3.6 mg/dl (2.5-4.9); Sodium 132 mmol/L (136-145); Total Protein 7.4 gm/dl (6.4-8.2); Troponin I < 0.015 ng/ml (0-0.045)
--- NOTE | 2018-11-15 19:06 | XRay Report ---
SINGLE VIEW CHEST CLINICAL HISTORY: Atypical chest pain. FINDINGS: An AP, portable, upright chest radiograph is compared to study dated 09/24/2017. Correlation is made with abdominal CT dated 09/30/2017. The examination is degraded by portable technique, apical lordotic positioning, and patient rotation. The cardiomediastinal silhouette is unremarkable, notin g atherosclerotic calcification of the thoracic aorta. Calcified mediastinal and hilar lymph nodes ar e again noted. Emphysema, chronic interstitial thickening, and elevation of the right hemidiaphragm a re similar to previous. There is extensive subpleural reticulation suggesting superimposed interstiti al lung disease. There is no evidence of superimposed airspace consolidation or large pleural effusio n. No pneumothorax is seen. The skeletal structures are osteopenic. The bony thorax is grossly intact . IMPRESSION: 1. No acute cardiopulmonary abnormality. 2. Emphysema and presumed superimposed interstitial lung disease are similar to previous. Electronically signed by: Rey Martinez M.D. 11/15/2018 7:05 PM
[2018-11-15 19:11] LABS: ALC (manual) 5.71 K/uL (1.2-3.4); Eosinophils # (manual) 0.46 K/uL (0-0.5); Eosinophils % (manual) 3.5 %; Lymphocytes # (manual) 2.91 K/uL (1.2-3.4); Lymphocytes % (manual) 22.1 %; Monocytes # (manual) 1.05 K/uL (0.11-0.59); Neutrophils % (manual) 45.2 %; Reactive Lymphocytes # (manual) 2.79 K/uL
--- NOTE | 2018-11-15 19:19 | Emergency Department Note ---
Entered by Rosalie Maldonado acting as a scribe for Clay Cleary MD History of Present Illness General Chief complaint: Hyperglycemia Stated complaint: REFERRED FOR HYPERGLYCEMIA - SUGAR 450 Time Seen by Provider: 11/15/18 18:16 Source: patient History of Present Illness Onset (ago): week(s) 2 Location: mouth (hyperglycemia) Pain Consistency: + other (worsening) Maximum Pain Intensity: 6 Relieved By: + none Associated symptoms: + other (experiencing dry mouth, swollen lip and tongue, impaired speech, foggy mind, increased thirst, abdominal bloating, and frequent urination) The patient is a 58 year old M who presents to the Emergency Room with comp laints of worsening hyperglycemia that started 2 weeks ago. The patient states that last week he saw his PCP because his blood glucose level was 400 mg/dL. He notes that his PCP did not seem concerned about his blood sugar level so he got a second opinion. He adds that the second doctor referred him to the hospital. He notes that he is currently experiencing dry mouth, swollen lip and tongue, impaired speech, foggy mind, shortness of breath, abdominal bloating, and frequent urination. He denies having painful urination. He notes that he has been drinking a lot of water recently. He states that he is not currently on insulin. He adds that he is current smoker and uses a nebulizer. Home Medications Home Medications Medication Instructions Recorded Confirmed Type aspirin [Aspirin Low Dose] 81 mg PO QAM 08/07/18 11/15/18 History gabapentin 300 mg PO TID 08/07/18 11/15/18 History levothyroxine 88 mcg PO QAM 08/07/18 11/15/18 History tamsulosin 0.4 mg PO QAM 08/07/18 11/15/18 History trazodone 150 mg PO HS 08/07/18 11/15/18 History lisinopril 20 mg PO QAM 11/15/18 11/15/18 History metoprolol succinate 12.5 mg PO DAILY 11/15/18 11/15/18 History metoprolol succinate 12.5 mg PO QAM 11/15/18 11/15/18 History Allergies Allergy/AdvReac Type Severity Reaction Status Date / Time No Known Allergies Allergy Verified 11/15/18 20:18 Past Med/Surg History Medical History Hypothyroid (Chronic) Hypertension (Chronic) Diabetes (Chronic) Dyslipidemia (Chronic) Hepatitis C (Chronic) Anxiety (Chronic) Diabetic neuropathy (Chronic) Diverticulosis (Chronic) Biceps tendon rupture (Chronic) "s/p repair" Antisocial personality disorder Bipolar disorder, unspecified SVT (supraventricular tachycardia) Depression, major, recurrent, moderate (Chronic) Nicotine abuse (Chronic) Surgical History H/O left inguinal hernia repair (Chronic) Hx of tonsillectomy (Chronic) Social History Preferred Language: Slovak Communication Ability: Effective Beliefs That Will Affect Care: None marital status: Current Living Situation: Spouse current occupational status: disabled Other Information That Helps Us Care for You: No Feels Safe at Home: Yes Safety Concerns: Feels Safe At This Time Smoking Status: Current every day smoker Tobacco Type: cigarettes Tobacco Cessation Education Requested by Patient: No Hx Alcohol Use: No Hx Substance Use: Yes substance use type: marijuana Last Used Substance: Hours (ago) Review of Systems See HPI for pertinent positives & negatives. and A total of 10 systems reviewed and were otherwise negative Physical Exam Vital Signs Vital Signs - 24 hr 11/15/18 18:00 11/15/18 18:59 11/15/18 19:30 Temperature 36.3 C L Temperature Source Oral Sepsis Recent Fever Within 48 Hours No Sepsis Action Taken by Nursing No Action Required Pulse Rate 68 Pulse Rate [Apical] 113 H Pulse Rhythm Pulse Rhythm [Apical] Irregular Pulse Strength Normal Pulse Strength [Apical] Normal Respiratory Rate 18 22 Respiratory Effort / Characteristics Non-Labored Spontaneous Respiratory Depth Normal Respiratory Pattern Regular Blood Pressure 141/85 H Blood Pressure [Left Arm] 112/76 Blood Pressure [Right Arm] Blood Pressure Mean 103 Blood Pressure Mean [Left Arm] 88 Blood Pressure Mean [Right Arm] Blood Pressure Position Sitting Blood Pressure Position [Left Arm] Sitting Pulse Oximetry 96 96 96 Oxygen Delivery Method Room Air Room Air Nasal Cannula Oxygen Flow Rate 2 11/15/18 19:54 11/15/18 20:53 11/15/18 21:30 Temperature 36.9 C Temperature Source Oral Sepsis Recent Fever Within 48 Hours Sepsis Action Taken by Nursing Pulse Rate 101 H Pulse Rate [Apical] 110 H 100 H 82 Pulse Rhythm Irregular Pulse Rhythm [Apical] Regular Regular Regular Pulse Strength Pulse Strength [Apical] Normal Normal Normal Respiratory Rate 26 H 24 20 Respiratory Effort / Characteristics Non-Labored Spontaneous Non-Labored Spontaneous Non-Labored Respiratory Depth Normal Normal Normal Respiratory Pattern Regular Regular Regular Blood Pressure Blood Pressure [Left Arm] 123/89 126/87 122/85 Blood Pressure [Right Arm] Blood Pressure Mean Blood Pressure Mean [Left Arm] 100 100 97 Blood Pressure Mean [Right Arm] Blood Pressure Position Blood Pressure Position [Left Arm] Sitting Sitting Lying Pulse Oximetry 98 96 94 Oxygen Delivery Method Nasal Cannula Nasal Cannula Room Air Oxygen Flow Rate 2 2 11/15/18 23:58 11/16/18 00:32 11/16/18 03:49 Temperature 36.5 C 36.6 C Temperature Source Oral Oral Sepsis Recent Fever Within 48 Hours Sepsis Action Taken by Nursing Pulse Rate 131 H Pulse Rate [Apical] 75 77 Pulse Rhythm Pulse Rhythm [Apical] Pulse Strength Pulse Strength [Apical] Respiratory Rate 18 18 Respiratory Effort / Characteristics Respiratory Depth Respiratory Pattern Blood Pressure 138/88 Blood Pressure [Left Arm] Blood Pressure [Right Arm] 112/78 126/82 Blood Pressure Mean Blood Pressure Mean [Left Arm] Blood Pressure Mean [Right Arm] 89 96 Blood Pressure Position Blood Pressure Position [Left Arm] Pulse Oximetry 96 94 Oxygen Delivery Method Oxygen Flow Rate 2 GENERAL: Awake, alert, fatigued-appearing, in no distress HENT: Normocephalic, atraumatic. Oropharynx with dry mucous membranes and otherwise unremarkable. EYES: Normal conjunctiva. Sclera non-icteric. NECK: Supple. No nuchal rigidity. FROM. No JVD. RESPIRATORY: Scant intermittent wheeze, otherwise clear. CARDIAC: Regular rate, normal rhythm. Extremities warm and well perfused. Pulses equal. ABDOMEN: Soft, distended. No tenderness to palpation. No rebound or guarding. No masses. RECTAL: Deferred. MUSCULOSKELETAL: Chest examination reveals no tenderness. The back is symmetrical on inspection without obvious abnormality. There is no CVA ten derness to palpation. No joint edema. LOWER EXTREMITIES: Calves are equal size bilaterally and non-tender. No edema. No discoloration. NEURO: Normal sensorium. No sensory or motor deficits noted. SKIN: No rash or jaundice noted. Course 1825: The patient was evaluated in room A9B. A complete history and physical exam was performed. 193: I reviewed the patient's [facility]. He will evaluate the patient for further management. Consultations Consultation #1: [facility] will evaluate the patient for further management. Time: 19:34 Administered Medications Gabapentin (Neurontin) 300 mg PO TID [facility] Stop: 12/15/18 21:36 Last Admin: 11/15/18 22:59 Dose: 300 mg Documented by: [id number] Sodium Chloride (Nss 1000ml) 1,000 mls @ 200 mls/hr IV .Q5H [facility] Stop: 12/15/18 21:36 Last Admin: 11/16/18 03:20 Dose: 200 mls/hr Documented by: [id number] Infusion: 11/16/18 03:15 Dose: 200 mls/hr Documented by: [id number] Admin: 11/15/18 22:15 Dose: 200 mls/hr Documented by: [id number] Heparin Sodium/Dextrose (Heparin Sodium/Dextrose) 25,000 units in 500 mls @ 20 mls/hr IV .Q24H [facility]; Protocol Stop: 12/15/18 22:29 Last Admin: 11/15/18 23:20 Dose: 1,000 units/hr, 20 mls/hr Documented by: [id number] Cosigned by: [id number] Insulin Aspart (Novolog Flexpen) 0 units SC ACHS [facility] Stop: 12/15/18 21:36 Last Admin: 11/16/18 00:08 Dose: 3 units Documented by: [id number] Cosigned by: [id number] Metoprolol Succinate (Toprol Xl) 25 mg PO BID [facility] Stop: 12/15/18 21:36 Last Admin: 11/15/18 22:59 Dose: 25 mg Documented by: [id number] Metoprolol Tartrate (Lopressor) 2.5 mg IV Q4 PRN PRN Reason: Tachycardia Stop: 12/15/18 21:36 Last Admin: 11/16/18 00:32 Dose: 2.5 mg Documented by: [id number] Nicotine (Nicoderm Cq) 21 mg TD DAILY [facility] Stop: 12/15/18 22:39 Last Admin: 11/15/18 22:56 Dose: 21 mg Documented by: [id number] Oxycodone HCl (Roxicodone Immediate Rel) 5 mg PO Q6H PRN PRN Reason: Pain Stop: 11/29/18 22:38 Last Admin: 11/15/18 22:56 Dose: 5 mg Documented by: [id number] Trazodone HCl (Desyrel) 150 mg PO HS [facility] Stop: 12/15/18 21:36 Last Admin: 11/15/18 22:59 Dose: 150 mg Documented by: [id number] Discontinued Medications Heparin Sodium/Dextrose () 1 ea N/A ONE ONE; Protocol Stop: 11/15/18 21:38 Last Admin: 11/15/18 22:16 Dose: 1 ea Documented by: [id number] Heparin Sodium/Dextrose (Heparin Sodium/Dextrose) Confirm Administered Dose 25,000 units IV .STK-MED ONE Stop: 11/15/18 21:53 Last Admin: 11/15/18 22:18 Dose: 20 units Documented by: [id number] Cosigned by: [id number] Sodium Chloride (Nss 1000ml) 2,000 mls @ 999 mls/hr IV .Q2H1M ONE Stop: 11/15/18 20:17 Last Infusion: 11/15/18 19:52 Dose: 0 mls/hr Documented by: [id number] Admin: 11/15/18 18:44 Dose: 999 mls/hr Documented by: [id number] Acetaminophen (Ofirmev) 1,000 mg in 100 mls @ 400 mls/hr IV NOW STA Stop: 11/15/18 19:47 Last Infusion: 11/15/18 20:07 Dose: 0 mls/hr Documented by: [id number] Admin: 11/15/18 19:52 Dose: 400 mls/hr Documented by: [id number] Insulin Human Regular 5 units/ (Syringe) 5 mls @ 30 mls/min IV TODAY@2230 [facility] Stop: 11/15/18 22:31 Last Admin: 11/15/18 22:58 Dose: 30 mls/min Documented by: [id number] Cosigned by: [id number] Miscellaneous Information (Consult Glycemic Management Pharmacy) 1 ea N/A NOW STA Stop: 11/15/18 21:38 Last Admin: 11/15/18 23:00 Dose: Not Given Documented by: [id number] Medical Decision Making Differential Diagnosis Differential diagnosis includes: metabolic, infection, hypo/hyperglycemia, electrolyte abnormalities, cardiac sources, intracerebral event, toxicologic, neurologic, as well as others were entertained. Medical Records Attestation: I reviewed the patient's medical records. Home Medications Current Medication List: was personally reviewed by me Laboratory Data Attestation: I reviewed the patient's lab results. Result diagrams: 11/15/18 18:10 11/15/18 18:10 Lab Results 11/15/18 11/15/18 11/15/18 Range/Units 18:10 18:10 18:10 WBC 13.18 H (4.8-10.8) K/uL RBC 5.90 (4.7-6.1) M/uL Hgb 18.8 H (14.0-18.0) g/dL Hct 53.1 H (42-52) % MCV 90.0 (80-100) fL MCH 31.9 (25-34) pg MCHC 35.4 (32-36) g/dL RDW Std Deviation 42.6 (36.4-46.3) fL RDW Coeff of Mynor 13.0 (11.5-14.5) % Plt Count 233 (130-400) K/uL MPV 11.0 H (7.4-10.4) fL Neutrophils % (Manual) 45.2 % Lymphocytes % (Manual) 22.1 % Reactive Lymphs % (Man) 21.2 % Monocytes % (Manual) 8.0 % Eosinophils % (Manual) 3.5 % Neutrophils # (Manual) 5.96 (1.4-6.5) K/uL Total Absolute Neuts 5.96 (1.4-6.5) K/uL Lymphocytes # (Manual) 2.91 (1.2-3.4) K/uL Reactive Lymphs # 2.79 K/uL Total Abs Lymphocytes 5.71 H (1.2-3.4) K/uL Monocytes # (Manual) 1.05 H (0.11-0.59) K/uL Eosinophils # (Manual) 0.46 (0-0.5) K/uL PT (9.0-12.0) Seconds INR (0.9-1.1) APTT (21.0-31.0) Seconds PTT Ratio Sodium 132 L (136-145) mmol/L Potassium 4.0 (3.5-5.1) mmol/L Chloride 99 (98-107) mmol/L Carbon Dioxide 21 (21-32) mmol/L Anion Gap 12.0 H (3-11) BUN 18 (7-18) mg/dl Creatinine 1.44 H (0.6-1.4) mg/dl Est Cr Clr Drug Dosing 62.9 ml/min Est GFR ( Amer) 60.7 Est GFR (Non-Af Amer) 52.4 BUN/Creatinine Ratio 12.4 (10-20) Glucose 494 H* (70-99) mg/dl POC Glucose (70-99) Osmolality 305 H (280-300) mOsm/kg Calcium 9.5 (8.5-10.1) mg/dl Phosphorus 3.6 (2.5-4.9) mg/dl Magnesium 2.2 (1.8-2.4) mg/dl Total Bilirubin 0.3 (0.2-1) mg/dl Direct Bilirubin < 0.1 (0-0.2) mg/dl AST 35 (15-37) U/L ALT 81 H (12-78) U/L Alkaline Phosphatase 107 (45-117) U/L Troponin I < 0.015 (0-0.045) ng/ml Total Protein 7.4 (6.4-8.2) gm/dl Albumin 3.9 (3.4-5.0) gm/dl Globulin 3.5 (2.5-4.0) gm/dl Albumin/Globulin Ratio 1.1 (0.9-2) Lipase 156 (73-393) U/L Beta-Hydroxybutyric Acd (0.2-2.81) mg/dl Urine Color Urine Appearance (Clear) Urine pH (4.5-7.5) Ur Specific Davis (1.000-1.030) Urine Protein (Negative) Urine Glucose (UA) (Negative) Urine Ketones (Negative) Urine Blood (Negative) Urine Nitrite (Negative) Urine Bilirubin (Negative) Urine Urobilinogen (Negative) Ur Leukocyte Esterase (Negative) 11/15/18 11/15/18 11/15/18 Range/Units 18:10 19:22 19:31 WBC (4.8-10.8) K/uL RBC (4.7-6.1) M/uL Hgb (14.0-18.0) g/dL Hct (42-52) % MCV (80-100) fL MCH (25-34) pg MCHC (32-36) g/dL RDW Std Deviation (36.4-46.3) fL RDW Coeff of Mynor (11.5-14.5) % Plt Count (130-400) K/uL MPV (7.4-10.4) fL Neutrophils % (Manual) % Lymphocytes % (Manual) % Reactive Lymphs % (Man) % Monocytes % (Manual) % Eosinophils % (Manual) % Neutrophils # (Manual) (1.4-6.5) K/uL Total Absolute Neuts (1.4-6.5) K/uL Lymphocytes # (Manual) (1.2-3.4) K/uL Reactive Lymphs # K/uL Total Abs Lymphocytes (1.2-3.4) K/uL Monocytes # (Manual) (0.11-0.59) K/uL Eosinophils # (Manual) (0-0.5) K/uL PT 10.4 (9.0-12.0) Seconds INR 1.0 (0.9-1.1) APTT 27.6 (21.0-31.0) Seconds PTT Ratio 1.0 Sodium (136-145) mmol/L Potassium (3.5-5.1) mmol/L Chloride (98-107) mmol/L Carbon Dioxide (21-32) mmol/L Anion Gap (3-11) BUN (7-18) mg/dl Creatinine (0.6-1.4) mg/dl Est Cr Clr Drug Dosing ml/min Est GFR ( Amer) Est GFR (Non-Af Amer) BUN/Creatinine Ratio (10-20) Glucose (70-99) mg/dl POC Glucose (70-99) Osmolality (280-300) mOsm/kg Calcium (8.5-10.1) mg/dl Phosphorus (2.5-4.9) mg/dl Magnesium (1.8-2.4) mg/dl Total Bilirubin (0.2-1) mg/dl Direct Bilirubin (0-0.2) mg/dl AST (15-37) U/L ALT (12-78) U/L Alkaline Phosphatase (45-117) U/L Troponin I (0-0.045) ng/ml Total Protein (6.4-8.2) gm/dl Albumin (3.4-5.0) gm/dl Globulin (2.5-4.0) gm/dl Albumin/Globulin Ratio (0.9-2) Lipase (73-393) U/L Beta-Hydroxybutyric Acd 1.35 (0.2-2.81) mg/dl Urine Color Yellow Urine Appearance Clear (Clear) Urine pH 5.0 (4.5-7.5) Ur Specific Davis 1.033 H (1.000-1.030) Urine Protein Negative (Negative) Urine Glucose (UA) 3+ H (Negative) Urine Ketones Negative (Negative) Urine Blood Negative (Negative) Urine Nitrite Negative (Negative) Urine Bilirubin Negative (Negative) Urine Urobilinogen Negative (Negative) Ur Leukocyte Esterase Negative (Negative) 11/15/18 11/15/18 11/15/18 Range/Units 20:50 20:51 21:46 WBC (4.8-10.8) K/uL RBC (4.7-6.1) M/uL Hgb (14.0-18.0) g/dL Hct (42-52) % MCV (80-100) fL MCH (25-34) pg MCHC (32-36) g/dL RDW Std Deviation (36.4-46.3) fL RDW Coeff of Mynor (11.5-14.5) % Plt Count (130-400) K/uL MPV (7.4-10.4) fL Neutrophils % (Manual) % Lymphocytes % (Manual) % Reactive Lymphs % (Man) % Monocytes % (Manual) % Eosinophils % (Manual) % Neutrophils # (Manual) (1.4-6.5) K/uL Total Absolute Neuts (1.4-6.5) K/uL Lymphocytes # (Manual) (1.2-3.4) K/uL Reactive Lymphs # K/uL Total Abs Lymphocytes (1.2-3.4) K/uL Monocytes # (Manual) (0.11-0.59) K/uL Eosinophils # (Manual) (0-0.5) K/uL PT (9.0-12.0) Seconds INR (0.9-1.1) APTT (21.0-31.0) Seconds PTT Ratio Sodium (136-145) mmol/L Potassium (3.5-5.1) mmol/L Chloride (98-107) mmol/L Carbon Dioxide (21-32) mmol/L Anion Gap (3-11) BUN (7-18) mg/dl Creatinine (0.6-1.4) mg/dl Est Cr Clr Drug Dosing ml/min Est GFR ( Amer) Est GFR (Non-Af Amer) BUN/Creatinine Ratio (10-20) Glucose (70-99) mg/dl POC Glucose 323 H* 329 H* (70-99) Osmolality (280-300) mOsm/kg Calcium (8.5-10.1) mg/dl Phosphorus (2.5-4.9) mg/dl Magnesium (1.8-2.4) mg/dl Total Bilirubin (0.2-1) mg/dl Direct Bilirubin (0-0.2) mg/dl AST (15-37) U/L ALT (12-78) U/L Alkaline Phosphatase (45-117) U/L Troponin I < 0.015 (0-0.045) ng/ml Total Protein (6.4-8.2) gm/dl Albumin (3.4-5.0) gm/dl Globulin (2.5-4.0) gm/dl Albumin/Globulin Ratio (0.9-2) Lipase (73-393) U/L Beta-Hydroxybutyric Acd (0.2-2.81) mg/dl Urine Color Urine Appearance (Clear) Urine pH (4.5-7.5) Ur Specific Davis (1.000-1.030) Urine Protein (Negative) Urine Glucose (UA) (Negative) Urine Ketones (Negative) Urine Blood (Negative) Urine Nitrite (Negative) Urine Bilirubin (Negative) Urine Urobilinogen (Negative) Ur Leukocyte Esterase (Negative) 11/15/18 11/16/18 Range/Units 23:05 00:07 WBC (4.8-10.8) K/uL RBC (4.7-6.1) M/uL Hgb (14.0-18.0) g/dL Hct (42-52) % MCV (80-100) fL MCH (25-34) pg MCHC (32-36) g/dL RDW Std Deviation (36.4-46.3) fL RDW Coeff of Mynor (11.5-14.5) % Plt Count (130-400) K/uL MPV (7.4-10.4) fL Neutrophils % (Manual) % Lymphocytes % (Manual) % Reactive Lymphs % (Man) % Monocytes % (Manual) % Eosinophils % (Manual) % Neutrophils # (Manual) (1.4-6.5) K/uL Total Absolute Neuts (1.4-6.5) K/uL Lymphocytes # (Manual) (1.2-3.4) K/uL Reactive Lymphs # K/uL Total Abs Lymphocytes (1.2-3.4) K/uL Monocytes # (Manual) (0.11-0.59) K/uL Eosinophils # (Manual) (0-0.5) K/uL PT (9.0-12.0) Seconds INR (0.9-1.1) APTT (21.0-31.0) Seconds PTT Ratio Sodium (136-145) mmol/L Potassium (3.5-5.1) mmol/L Chloride (98-107) mmol/L Carbon Dioxide (21-32) mmol/L Anion Gap (3-11) BUN (7-18) mg/dl Creatinine (0.6-1.4) mg/dl Est Cr Clr Drug Dosing ml/min Est GFR ( Amer) Est GFR (Non-Af Amer) BUN/Creatinine Ratio (10-20) Glucose (70-99) mg/dl POC Glucose 302 H* 234 H (70-99) Osmolality (280-300) mOsm/kg Calcium (8.5-10.1) mg/dl Phosphorus (2.5-4.9) mg/dl Magnesium (1.8-2.4) mg/dl Total Bilirubin (0.2-1) mg/dl Direct Bilirubin (0-0.2) mg/dl AST (15-37) U/L ALT (12-78) U/L Alkaline Phosphatase (45-117) U/L Troponin I (0-0.045) ng/ml Total Protein (6.4-8.2) gm/dl Albumin (3.4-5.0) gm/dl Globulin (2.5-4.0) gm/dl Albumin/Globulin Ratio (0.9-2) Lipase (73-393) U/L Beta-Hydroxybutyric Acd (0.2-2.81) mg/dl Urine Color Urine Appearance (Clear) Urine pH (4.5-7.5) Ur Specific Davis (1.000-1.030) Urine Protein (Negative) Urine Glucose (UA) (Negative) Urine Ketones (Negative) Urine Blood (Negative) Urine Nitrite (Negative) Urine Bilirubin (Negative) Urine Urobilinogen (Negative) Ur Leukocyte Esterase (Negative) Imaging Data Radiologist's Impression: Radiology results as stated below per my review and the radiologist's interpretation: SINGLE VIEW CHEST CLINICAL HISTORY: Atypical chest pain. FINDINGS: An AP, portable, upright chest radiograph is compared to study dated 09/24/2017. Correlation is made with abdominal CT dated 09/30/2017. The examination is degraded by portable technique, apical lordotic positioning, and patient rotation. The cardiomediastinal silhouette is unremarkable, noting a therosclerotic calcification of the thoracic aorta. Calcified mediastinal and hilar lymph nodes are again noted. Emphysema, chronic interstitial thickening, and elevation of the right hemidiaphragm are similar to previous. There is extensive subpleural reticulation suggesting superimposed interstitial lung disease. There is no evidence of superimposed airspace consolidation or large pleural effusion. No pneumothorax is seen. The skeletal structures are osteopenic. The bony thorax is grossly intact. IMPRESSION: 1. No acute cardiopulmonary abnormality. 2. Emphysema and presumed superimposed interstitial lung disease are similar to previous. Electronically signed by: Rey Martinez M.D. 11/15/2018 7:05 PM ECG Data Attestation: I personally reviewed and interpreted this ECG as follows: Indication: other (hyperglycemia) Rate (beats per minute): 136 Rhythm: atrial flutter Findings: + other (variable AV block); no nonspecific-ST abn and no acute ischemic change Comparison ECG Date: from (09/30/17) Change: no significant change Blood Pressure Blood Pressure Findings: Normal blood pressure Blood Pressure Disposition: did not require urgent referral MDM Narrative The patient is a pleasant 66-year-old gentleman with a past medical history of NIDDM 2, bipolar disorder who presents to emergency department with generalized weakness over the past 2 weeks with uncontrolled blood sugars in the 400s refer red to the emergency department by his PCPs office per hpi. Arrival patient fatigued appearing but no acute distress, afebrile stable vital signs. The patient appears clinically dry. He is neurologically intact. WBC 13.1, nonspecific. H/H 18.8/53.1 consistent with the patient's clinically dry a ppearance and prolonged uncontrolled blood sugars. Platelets within normal limits. Chemistry without acidosis. Creatinine 1.4 which does appear slightly increased from baseline range of 1.0-1.28. Glucose today is 494 with serum osmolality 305. Plan to reassess glucose after initial IVF to inform SSI. EKG demonstrates atrial flutter with variable AV block and nonspecific ST abnormality. Chest x-ray demonstrates emphysema and otherwise no acute cardiopulmonary process. Case d/w Dr. Cruz, [facility] hospitalist, who will evaluate the patient for admission. Impression & Plan Hyperglycemia due to type 2 diabetes mellitus, Polycythemia, Dehydration Discharge Plan Visit Data *Final* Discharge Date/Time: 11/15/18 21:07 Chief Complaint: Hyperglycemia Stated Complaint: REFERRED FOR HYPERGLYCEMIA - SUGAR 450 ED Provider: Clay Cleary Discharge Problem: Hyperglycemia due to type 2 diabetes mellitus, Polycythemia, Dehydration Patient Disposition: Admitted As Inpatient Discharge Instructions Interventions: ED Discharge Assessment Last Done: 11/15/18 21:07 The scribe's documentation has been prepared under my direction and personally reviewed by me in its entirety. I confirm that the note above accurately reflects all work, treatment, procedures, and medical decision making performed by me.
[2018-11-15 19:30] LABS: Prothrombin Time 10.4 Seconds (9.0-12.0)
[2018-11-15] MEDS ORDERED: ACETAMINOPHEN 1,000 MG/100 ML VIAL IV STA (19:33)
[2018-11-15 19:59] LABS: Appearance Urine Clear (Clear); Bilirubin Urine Negative (Negative); Blood Urine Negative (Negative); Color Urine Yellow; Glucose Urine UA 3+ (Negative); Ketones Urine Negative (Negative); Leukocyte Esterase Urine Negative (Negative); Nitrite Urine Negative (Negative); Protein Urine Negative (Negative); Specific Gravity Urine 1.033 (1.000-1.030); Urobilinogen Urine Negative (Negative)
[2018-11-15] MEDS ORDERED: ACETAMINOPHEN 325 MG TAB PO PRN (21:37)
[2018-11-15] MEDS ORDERED: ONDANSETRON INJ 2 MG/ML 2 ML VIAL IV PRN (21:37)
[2018-11-15] MEDS ORDERED: Heparin IV Low Dose *NO* Bolus ONE (21:37)
[2018-11-15] MEDS ORDERED: INSULIN GLARGINE SOLOSTAR 100 UNITS/ML 3 ML PEN SC SCH (21:37)
[2018-11-15] MEDS ORDERED: PHARMACY GLYCEMIC MGMT CONSULT STA (21:37)
[2018-11-15] MEDS ORDERED: NITROGLYCERIN SL 0.4 MG/TAB TAB SL PRN (21:37)
[2018-11-15] MEDS ORDERED: NovoLIN-R INSULIN PER UNIT CHARGE IV STA (21:37)
[2018-11-15] MEDS: SODIUM CHLORIDE 0.9% 1000ML 1,000 ML IV SCH (22:15)
[2018-11-15] MEDS: HEPARIN 25000 UNIT/500 ML D5W IV ONE ×2 (22:16→22:18)
[2018-11-15] MEDS ORDERED: INSULIN HUMAN REGULAR PER UNIT 5 UNITS in SYRINGE 4.95 ML IV SCH (22:30)
[2018-11-15] MEDS ORDERED: DEXTROSE 50% 50 ML SYRINGE IV PRN (22:45)
[2018-11-15] MEDS ORDERED: GLUCAGON FOR INJ 1 MG VIAL SQ PRN (22:45)
[2018-11-15] MEDS ORDERED: GLUCOSE 40% GEL 15 GM TUBE PO PRN (22:45)
[2018-11-15] MEDS ORDERED: CARBOHYDRATES FOR HYPOGLYCEMIA PO PRN (22:45)
[2018-11-15] MEDS ORDERED: GLUCOSE 10 TABS/TUBE PO PRN (22:45)
[2018-11-15 22:54] LABS: Partial Thromboplastin Time 27.6 Seconds (21.0-31.0)
[2018-11-15] MEDS: NICOTINE 21 MG/24 HR TDSY TD SCH (22:56)
[2018-11-15] MEDS: OXYCODONE HCL IR 5 MG TAB (IMMEDIATE RELEASE) PO PRN (22:56)
[2018-11-15] MEDS: TRAZODONE HCL 50 MG TAB PO SCH (22:59)
[2018-11-15] MEDS: METOPROLOL SUCC 25MG EXT REL TAB PO SCH (22:59)
[2018-11-15] MEDS: GABAPENTIN 300 MG CAP PO SCH (22:59)
--- NOTE | 2018-11-15 23:10 | History and Physical Report ---
DATE OF ADMISSION: 11/15/2018 CHIEF COMPLAINT: Generalized weakness and fatigue and uncontrolled blood sugar. HISTORY OF PRESENT ILLNESS: This is a 58-year-old male with past medical history of diabetes. He used to be on metformin for 7-8 years but could not tolerate because of diarrhea. Supposed to get Jardiance, but could not get it because of high cost. Currently not on any medications. History of atrial fibrillation, used to be on Toprol which he stopped, but since last cardiology visit, is on Toprol-XL 25 mg daily and aspirin. He does not want to be on Coumadin because of difficulty managing Coumadin levels, and cardiology recommended newer agents, but stopped it because of cost as per the cardiology notes. History of hypothyroidism, history of abdominal aortic aneurysm, hypertension, hyperlipidemia, hepatitis C, mood disorder, anxiety, ADHD, who presents with not feeling well for last few days, weak and tired, and the sugars running in 300-400 range. Called his PCP and advised to come to the ER. The patient has heart rates in 120s to 130s, in rapid atrial flutter. He feels his mind is cloggy, he feels dry, some blurred vision. No headaches, no earaches, no sore throat. Appetite is okay. No difficulty swallowing. No chest pain. He is feeling short of breath and oxygen is helping him. No cough, no fever, no chills, Was vomiting in the morning. Has some abdominal discomfort, has chronic back pain. He has some diarrhea since yesterday. No blood in the stools, no black stools. He is micturating a lot. No burning micturition, no hematuria. No rash, no swelling in the legs. Lives with his . Walks without any help. ALLERGIES: DIVALPROEX SODIUM. PAST MEDICAL HISTORY: As mentioned above. PAST SURGICAL HISTORY: Colonoscopy, dental surgery, EGD with endoscopic ultrasound, tonsillectomy, adenoidectomy, inguinal hernia repair. MEDICATIONS: The patient is on trazodone 150 mg p.o. at bedtime, gabapentin 300 mg p.o. t.i.d., levothyroxine 88 mcg p.o. daily, lisinopril 20 mg p.o. daily, Flomax 0.4 mg p.o. daily, Toprol-XL 12.5 mg p.o. daily, aspirin 81 mg p.o. daily. FAMILY HISTORY: No family history on file. SOCIAL HISTORY: Smokes average 3 packs a day for last 30 years as per records, no alcohol use. Smokes marijuana. REVIEW OF SYMPTOMS: As per HPI. Rest of the review of systems negative. PHYSICAL EXAMINATION: GENERAL: The patient is of moderate build, not in acute distress. VITAL SIGNS: Temperature 36.3, pulse 100, respiratory rate 24, blood pressure 126/87, oxygen 96% on 2 L. HEENT: No pallor, no icterus. Pupils equal, round, and reactive to light. NECK: No JVD, no neck masses, no carotid bruits. CARDIOVASCULAR: S1, S2 heard, irregular rhythm. Tachycardia. No murmur. RESPIRATORY SYSTEM: Normal AP diameter. No accessory muscle use. No wheezing, no crackles. ABDOMEN: Soft, bowel sounds present. Nontender. No distention. CENTRAL NERVOUS SYSTEM: Cranial nerves II-XII grossly intact. Nonfocal. EXTREMITIES: No edema, no erythema. LABORATORY DATA: WBC 13, hemoglobin 18.8, hematocrit 53.1, platelets 233. PT 10.4, INR 1. Sodium 132, potassium 4, chloride 99, bicarbonate 21, BUN 18, creatinine 1.4, serum glucose 494, osmolality 305, calcium 9.5, phosphorus 3.6, magnesium 2.2, total bilirubin 0.3, direct bilirubin less than 0.1, AST 35, ALT 81, alkaline phosphatase 107. Troponin I less than 0.015. Lipase 156. Urinalysis positive for glucose. IMAGING DATA: Chest x-ray, no acute cardiopulmonary abnormality, emphysema, and presumed superimposed interstitial lung disease, similar to previous. EKG: Rapid atrial flutter with a rate of 136. ASSESSMENT AND PLAN: This is a 58-year-old male who presents with weakness and generalized fatigue and found to have hyperglycemia and atrial flutter. 1. Hyperglycemia, uncontrolled diabetes. The patient used to be on metformin, but stopped taking it because of diarrhea and family doctor prescribed Jardiance, but he could not take it because of the cost. His recent HbA1c on 07/29/2018 was 7.9. Currently, today's blood sugars are 494, but he is not acidotic, not in DKA. We will give him 1 dose of IV regular insulin [address] on Lantus 10 units b.i.d. and insulin sliding scale. We will check hemoglobin A1c levels. Aggressive fluids, he got about 2-3 L in the ER, we will place him on IV normal saline 200 mL per hour and adjust fluids tomorrow. Consult glycemic pharmacy to help with insulin regimen and also diabetic teaching. Closely monitor in the tele floor. 2. Rapid atrial flutter. The patient has history of atrial fibrillation in the past. He is currently on Toprol-XL 12.5 mg daily. Was supposed to be on Coumadin, but not taking it because he was not able to control levels and cardiology prescribed Eliquis, but he stopped because of cost. He is currently on aspirin. We will place on Toprol-XL 25 mg b.i.d. and IV Lopressor p.r.n. and low-dose IV heparin. Follow echocardiogram and consult cardiology for further recommendations. Continue his aspirin. 3. Hypothyroidism. Continue Synthroid. 4. Tobacco abuse. Needs counseling. We will place him on Xopenex p.r.n. 5. Benign prostatic hyperplasia, continue his Flomax. 6. Hypertension. Continue his lisinopril 20 daily and Toprol-XL as above. We will monitor the blood pressure. 7. History of abdominal aortic aneurysm, 3.3 cm. Supposed to get a repeat abdominal ultrasound in September 2019. 8. Hyperlipidemia, not on any medications. Follow fasting lipid profile. 9. Deep venous thrombosis prophylaxis, IV heparin. 10. Disposition. Closely monitor in the tele floor. Level 1 full code. MTDD
[2018-11-15] MEDS: Heparin Adult LOW DOSE Wt-Based Dextrose 5% 25,000 units/500 mL IV SCH (23:20)
[2018-11-15] MEDS ORDERED: PHARMACY GLYCEMIC MGMT CONSULT PRN (23:45)
[2018-11-16] MEDS: INSULIN ASPART 100 UNITS/ML 3 ML PEN SC SCH ×5 (00:08→22:01)
[2018-11-16] MEDS: METOPROLOL TARTRATE 1 MG/ML VIAL IV PRN (00:32)
[2018-11-16] MEDS ORDERED: INSULIN ASPART 100 UNITS/ML 3 ML PEN SC SCH ×2 (02:00→04:00)
[2018-11-16] MEDS: SODIUM CHLORIDE 0.9% 1000ML 1,000 ML IV SCH ×4 (03:20→19:54)
[2018-11-16 04:30] LABS: Basophils # (auto) 0.06 K/uL (0-0.2); Basophils % (auto) 0.7 %; Eosinophils # (auto) 0.14 K/uL (0-0.5); Eosinophils % (auto) 1.6 %; Hematocrit (blood only) 46.9 % (42-52); Hemoglobin 16.4 g/dL (14.0-18.0); Immature Granulocytes # (auto) 0.11 K/uL (0.00-0.02); Immature Granulocytes % (auto) 1.2 %; Lymphocytes # (auto) 4.03 K/uL (1.2-3.4); Lymphocytes % (auto) 45.1 %; Mean Corpuscular Volume 89.5 fL (80-100); Mean Platelet Volume 10.4 fL (7.4-10.4); Monocytes # (auto) 0.82 K/uL (0.11-0.59); Monocytes % (auto) 9.2 %; Neutrophils # (auto) 3.77 K/uL (1.4-6.5); Neutrophils % (auto) 42.2 %; Platelet Count 192 K/uL (130-400); RDW Coefficient of Variation 13.1 % (11.5-14.5); RDW Standard Deviation 42.7 fL (36.4-46.3); Red Blood Count 5.24 M/uL (4.7-6.1); White Blood Count 8.93 K/uL (4.8-10.8)
[2018-11-16 04:38] LABS: Partial Thromboplastin Ratio 1.3; Partial Thromboplastin Time 34.4 Seconds (21.0-31.0)
[2018-11-16 04:53] LABS: Chol HDL Ratio 10; Cholesterol 214 mg/dl (0-200); HDL Cholesterol 22 mg/dl; Triglycerides 576 mg/dl (0-150); Troponin I < 0.015 ng/ml (0-0.045)
[2018-11-16 05:00] LABS: BUN Creatinine Ratio 14.4 (10-20); Creatinine Clr Calc Pharmacy 84.9 ml/min; Est GFR (Non-African American) 75.1; Magnesium 1.9 mg/dl (1.8-2.4); Potassium 4.5 mmol/L (3.5-5.1)
[2018-11-16] MEDS ORDERED: Nursing to Pharmacy Communication ONE ×2 (05:01→13:05)
[2018-11-16] MEDS ORDERED: HEPARIN IV BOLUS 4,500 UNITS in SYRINGE 0 ML IV ONE (05:15)
[2018-11-16] MEDS: LEVOTHYROXINE SODIUM 88 MCG TABLET PO SCH (05:19)
[2018-11-16] MEDS: OXYCODONE HCL IR 5 MG TAB (IMMEDIATE RELEASE) PO PRN ×2 (05:19→21:59)
[2018-11-16 07:15] LABS: Estimated Average Glucose 235 mg/dl; Hemoglobin A1C 9.8 % (4.5-5.6)
[2018-11-16] MEDS ORDERED: PERFLUTREN LIPID MICROSPHERE (DEFINITY) IV ONE (07:19)
[2018-11-16] MEDS: LISINOPRIL 20 MG TAB PO SCH (07:47)
[2018-11-16] MEDS: METOPROLOL SUCC 25MG EXT REL TAB PO SCH (07:48)
[2018-11-16] MEDS: TAMSULOSIN HCL 0.4 MG CAP PO SCH (07:48)
[2018-11-16] MEDS: ASPIRIN 81 MG ECTAB PO SCH (07:48)
[2018-11-16] MEDS: NICOTINE 21 MG/24 HR TDSY TD SCH (07:48)
[2018-11-16] MEDS: GABAPENTIN 300 MG CAP PO SCH ×3 (07:48→22:01)
[2018-11-16] MEDS ORDERED: INSULIN GLARGINE SOLOSTAR 100 UNITS/ML 3 ML PEN SC ONE (08:00)
--- NOTE | 2018-11-16 09:35 | Pharmacy Report ---
Glycemic Control Consultation - Date of Service November 16, 2018 - Scope Scope: Glycemic Pharmacist consulted by Dr Cruz on 11/15/18 for glycemic control and to write orders per [facility] inpatient glycemic control protocol - Objective Weight: 101.9 kg Accuchecks BSG (last 24hrs): 11/15/18 11/15/18 11/15/18 18:10 20:50 20:51 Glucose 494 H* POC Glucose 323 H* 329 H* 11/15/18 11/16/18 11/16/18 23:05 00:07 04:11 Glucose 257 H POC Glucose 302 H* 234 H 11/16/18 11/16/18 04:28 07:18 Glucose POC Glucose 216 H 195 H Laboratory Data (last 24hrs): 11/15/18 11/15/18 11/15/18 18:10 18:10 19:31 Potassium 4.0 Carbon Dioxide 21 Anion Gap 12.0 H Creatinine 1.44 H Est Cr Clr Drug Dosing 62.9 Osmolality 305 H Beta-Hydroxybutyric Acd 1.35 11/16/18 04:11 Potassium 4.5 Carbon Dioxide 25 Anion Gap 2.0 L Creatinine 1.07 Est Cr Clr Drug Dosing 84.9 Osmolality Beta-Hydroxybutyric Acd HbA1c: Hemoglobin A1c 9.8 % (4.5-5.6) H 11/16/18 04:11 - Recent Pertinent Medications Outpatient Anti-diabetic Regimen: * N/A not taking anything secondary to cost - Assessment & Plan Assessment & Plan: ASSESSMENT: * 58yo T2DM male with poor outpatient control secondary to not taking outpatient antidiabetic medications due to cost/affordability. Pt also does not tolerate metformin secondary to GI side effects/issues. * A1c was 7.9% in July of this year. Now A1c increased to 9.8% today. * Triglycerides and LDL also elevated. * Will start a weight based SQ basal bolus insulin regimen and titrate based on BSG trends. * Goal is to maintain BSGs <180 mg/dl. PLAN FOR INPATIENT GLYCEMIC CONTROL: * Basal insulin: weight and stress of 2 * Lantus 34 units SQ x 1 dose this morning, then, * Lantus 9-25 units SQ BID based on degree of hyperglycemia * Bolus insulin * NovoLog per scale ACHS or Q6hrs while NPO * Goal Range: Low 120 mg/dL - High 150 mg/dL * Correction Factor: 25 mg/dL/unit * Nutritional / Prandial insulin per carb ratio of 1 unit per 8 grams CHO consumed Looking ahead to discharge: * Will need to assess patient's willingness to do insulin injections * Will need to keep regimen simple and affordable - recommend ReliOn 70/30 premixed insulin SQ BIDM. Only costs ~$25/vial. Dosing TBD. Estimating ~ 0.4- 0.8 units/kg/day total daily dose split BIDM. * Please note that the plan above was derived based on current level of insulin resistance and hospital stress. These recommendations are appropriate for inpatient admission only. Plan of care upon discharge will need to be reassessed to avoid potential outpatient hypo/hyperglycemia. Thank you.
[2018-11-16] MEDS: CYCLOBENZAPRINE HCL 5 MG TAB PO SCH ×2 (11:31→13:00)
[2018-11-16 11:36] LABS: Partial Thromboplastin Ratio 1.6; Partial Thromboplastin Time 43.9 Seconds (21.0-31.0)
--- NOTE | 2018-11-16 12:09 | Cardiology Consultation ---
Date of Consultation November 16, 2018 Assessment & Plan (1) Paroxysmal atrial fibrillation: (2) Tachy-maria antonia syndrome: Patient presents with atrial fibrillation versus atrial flutter with rapid ventricular response. Although organized atrial activity is seen in lead V1 of his presenting EKG, and review of his telemetry and follow-up EKG, I think this is overall more patient portal representative of atrial fibrillation. The chronicity of this episode is uncertain as the patient has no subjective sensation that his heart rate is elevated. Twelve-lead EKG had been performed as an outpatient on 10/02/2018 with findings of sinus rhythm with premature atrial contractions at that time The patient and received. Metoprolol succinate 25 mg last evening at 2259 and again this morning at 7:48 AM. Telemetry however has revealed multiple pauses most of which took place between 8 and 9 AM this morning. At 8:48 AM a 4-second pause was noted, at 8:52 AM of 4-second pause was noted, at 8:53 AM a 5-second pause was noted, and at 9:01 AM a 4-second pause was noted. Most of these are associated with conversion pauses back to sinus rhythm and shortly after that the patient goes back in atrial fibrillation. The patient has not had any symptoms with these. He notes that they get symptoms of lightheadedness recently but no leti syncope. I have added a TSH. At this time, I am going to stop his metoprolol succinate, and and observe him off of AV perri blockers. The patient was only prescribed metoprolol succinate 12.5 mg daily as an outpatient, and it appears he likely was not taking this. His electrolytes are stable with normal potassium magnesium levels. I discussed the patient that the most prudent way to proceed is likely to implant a dual-chamber permanent pacemaker for heart rate control. He is going to think about this. I do not think it is an emergency, and since today's a Sunday, this will likely be performed early next week on Sunday or Sunday pending optimization of his blood glucose. Patient notes no recent tick bites, and he does have a history of atrial arrhythmias therefore I do not think work- up for Lyme would be helpful in this case. Echocardiogram performed today reveals normal left ventricular systolic function and no significant valvular heart disease with the exception of mild aortic valve sclerosis without stenosis. In terms of stroke prophylaxis, patient previously declined Coumadin due to inconvenience of monitoring. Treatment with a direct oral anticoagulant has been prohibitively expensive. He states that he is agreeable to Coumadin. This will be started after pacemaker procedure. (3) Hyperglycemia due to type 2 diabetes mellitus: Hemoglobin A1c 9.8%. Glucose trending toward improvement on IV fluids. History of Present Illness Attending Physician: Reece Carlson MD History of Present Illness Dhruv Oviedo is a 58 year old male seen in cardiology consultation per the request of Dr Cruz for the evaluation of atrial flutter/fibrillation. The patient most recently saw Dr clark as an outpatient in October, and Dean Chavarria PA-C of our practice on 10/02/18. Patient has an apparent history of possible supraventricular tachycardia having been observed in September 2017 when he was admitted with a respiratory tract infection and tested positive for influenza B. He was also noted to have atrial fibrillation during that admission. Until today, he only had one documented episode of atrial fibrillation. The patient apparently has not been adherent to his diabetes or cardiac medications. He notes symptoms of lethargy, slurred speech, nauseousness, and episodic lightheadedness x3 to 4 weeks. His presenting blood glucose last and 1809 was 494 mg/dL. Found to be tachycardic with initial EKG 11/15/2018 at 1839 hrs. revealing atrial fibrillation at 136 bpm versus atypical atrial flutter. The patient was placed on unfractionated heparin. He had previously been directed to take metoprolol succinate 12.5 mg daily as an outpatient, but is unclear if the patient has actually been taking this. The patient has no subjective symptoms of his heart racing. Although he notes occasional lightheadedness, he denies leti syncope. Allergies Allergy/AdvReac Type Severity Reaction Status Date / Time No Known Allergies Allergy Verified 11/15/18 20:18 Home Medications Home Medications Medication Instructions Recorded Confirmed Type aspirin [Aspirin Low Dose] 81 mg PO QAM 08/07/18 11/15/18 History gabapentin 300 mg PO TID 08/07/18 11/15/18 History levothyroxine 88 mcg PO QAM 08/07/18 11/15/18 History tamsulosin 0.4 mg PO QAM 08/07/18 11/15/18 History trazodone 150 mg PO HS 08/07/18 11/15/18 History lisinopril 20 mg PO QAM 11/15/18 11/15/18 History metoprolol succinate 12.5 mg PO DAILY 11/15/18 11/15/18 History metoprolol succinate 12.5 mg PO QAM 11/15/18 11/15/18 History Patient History Medical History Hypothyroid (Chronic) Hypertension (Chronic) Diabetes (Chronic) Dyslipidemia (Chronic) Hepatitis C (Chronic) Anxiety (Chronic) Diabetic neuropathy (Chronic) Diverticulosis (Chronic) Biceps tendon rupture (Chronic) "s/p repair" Antisocial personality disorder Bipolar disorder, unspecified SVT (supraventricular tachycardia) Depression, major, recurrent, moderate (Chronic) Nicotine abuse (Chronic) Surgical History H/O left inguinal hernia repair (Chronic) Hx of tonsillectomy (Chronic) Social History Preferred Language: Nauruan Communication Ability: Effective Beliefs That Will Affect Care: None marital status: Current Living Situation: Spouse current occupational status: disabled Other Information That Helps Us Care for You: No Feels Safe at Home: Yes Safety Concerns: Feels Safe At This Time Smoking Status: Current every day smoker Tobacco Type: cigarettes Tobacco Cessation Education Requested by Patient: No Hx Alcohol Use: No Hx Substance Use: Yes substance use type: marijuana Last Used Substance: Hours (ago) Review of Systems Review of Systems: All systems reviewed & are unremarkable except as noted in HPI & below Physical Exam Physical Exam: General: no acute distress and stated age Eyes: conjunctiva are pink and non-injected, sclera clear Neck: normal jugular venous pulse, no hepatojugular reflux Chest: normal shape and normal respiratory effort Lungs: clear to auscultation and percussion Cardiac Exam: -Irregular rhythm, no murmurs Abdomen: abdomen soft, non-tender, no abnormal masses and no hepatosplenomegaly Extremities: no edema and no cyanosis Neuro:awake, coversant, follows commands, no focal motor deficits Results & Data Vital Signs (Past 12 Hours) Vital Signs Temp Pulse Pulse Resp BP BP BP 11/16/18 11:00 36.6 C 94 H 20 142/93 H 11/16/18 07:31 36.5 C 126 H 20 144/94 H 11/16/18 03:49 36.6 C 77 18 126/82 11/16/18 00:32 131 H 138/88 Pulse Ox 11/16/18 11:00 93 11/16/18 07:31 95 11/16/18 03:49 94 11/16/18 00:32 Laboratory Results Cardiac Enzymes 11/15/18 11/15/18 11/16/18 Range/Units 18:10 21:46 04:11 AST 35 (15-37) U/L Troponin I < 0.015 < 0.015 < 0.015 (0-0.045) ng/ml 11/16/18 Range/Units 10:04 AST (15-37) U/L Troponin I < 0.015 (0-0.045) ng/ml Coagulation 11/15/18 11/16/18 11/16/18 Range/Units 18:10 04:11 11:09 PT 10.4 (9.0-12.0) Seconds APTT 27.6 34.4 H 43.9 H (21.0-31.0) Seconds Lipids 11/16/18 Range/Units 04:11 Triglycerides 576 H (0-150) mg/dl Cholesterol 214 H (0-200) mg/dl HDL Cholesterol 22 mg/dl Cholesterol/HDL Ratio 10 CBC 11/15/18 11/16/18 Range/Units 18:10 04:11 WBC 13.18 H 8.93 (4.8-10.8) K/uL RBC 5.90 5.24 (4.7-6.1) M/uL Hgb 18.8 H 16.4 (14.0-18.0) g/dL Hct 53.1 H 46.9 (42-52) % Plt Count 233 192 (130-400) K/uL Neut # (Auto) 3.77 (1.4-6.5) K/uL Lymph # (Auto) 4.03 H (1.2-3.4) K/uL Russell # (Auto) 0.82 H (0.11-0.59) K/uL Eos # (Auto) 0.14 (0-0.5) K/uL Baso # (Auto) 0.06 (0-0.2) K/uL Comprehensive Metabolic Panel 11/15/18 11/16/18 Range/Units 18:10 04:11 Sodium 132 L 134 L (136-145) mmol/L Potassium 4.0 4.5 (3.5-5.1) mmol/L Chloride 99 107 (98-107) mmol/L Carbon Dioxide 21 25 (21-32) mmol/L BUN 18 15 (7-18) mg/dl Creatinine 1.44 H 1.07 (0.6-1.4) mg/dl Glucose 494 H* 257 H (70-99) mg/dl Calcium 9.5 8.0 L D (8.5-10.1) mg/dl Direct Bilirubin < 0.1 (0-0.2) mg/dl AST 35 (15-37) U/L ALT 81 H (12-78) U/L Alkaline Phosphatase 107 (45-117) U/L Total Protein 7.4 (6.4-8.2) gm/dl Albumin 3.9 (3.4-5.0) gm/dl Intake and Output 11/15/18 11/16/18 11/16/18 22:59 06:59 14:59 Intake Total 2100 / 3476.116 1376.116 / 3476.116 1440.000 / 1440.000 Output Total 600 / 600 Balance 2100 / 2876.116 776.116 / 2876.116 1440.000 / 1440.000 Intake: IV 2100 / 3256.116 1156.116 / 3256.116 1440.000 / 1440.000 OFIRMEV 1,000 mg In 100 ml @ 100 / 100 400 mls/hr IV NOW [facility] Rx#: [id number] HEPARIN SODIUM/DEXTROSE 25,000 156.116 / 156.116 units In 500 ml @ 1,150 UNITS/ HR 23 mls/hr IV .[id number] [facility] Rx #:[id number] Nss 1000ML 1,000 ml @ 200 mls/ 2000 / 3000 1000 / 3000 1440.000 / 1440.000 hr IV .Q5H [facility] Rx#:[id number] Oral 220 / 220 Output: Urine 600 / 600 Other: Weight 101.9 kg 101.9 kg Patient Weight 11/17/18 06:59 Weight 101.9 kg Diagnostic Findings Repeat EKG 11/16/2018 at 6:30 AM reveals atrial fibrillation 89 bpm. Summary of radiology report of chest x-ray: No acute cardiopulmonary abnormality. Emphysema and presumed superimposed interstitial lung disease noted unchanged compared to prior Medications Administered Current Inpatient Medications Acetaminophen (Tylenol) 650 mg PO Q4H PRN PRN Reason: Pain or Fever Stop: 12/15/18 21:36 Aspirin (Ecotrin Ectab) 81 mg PO QAM [facility] Stop: 12/16/18 08:59 Last Admin: 11/16/18 07:48 Dose: 81 mg Documented by: Cyclobenzaprine HCl (Flexeril) 5 mg PO TID [facility] Stop: 12/16/18 13:59 Last Admin: 11/16/18 11:31 Dose: 5 mg Documented by: Dextrose (Dextrose 50%) 25 - 50 ml IV UD PRN; Protocol PRN Reason: Hypoglycemia Protocol Stop: 12/15/18 22:44 Gabapentin (Neurontin) 300 mg PO TID [facility] Stop: 12/15/18 21:36 Last Admin: 11/16/18 07:48 Dose: 300 mg Documented by: Glucagon (Glucagen) 1 mg SQ UD PRN; Protocol PRN Reason: Hypoglycemia Protocol Stop: 12/15/18 22:44 Glucose (Glucose 40%) 15 - 30 gm PO UD PRN; Protocol PRN Reason: Hypoglycemia Protocol Stop: 12/15/18 22:44 Glucose (Dex4 Glucose) 4 - 8 tabs PO UD PRN; Protocol PRN Reason: Hypoglycemia Protocol Stop: 12/15/18 22:44 Heparin Sodium/Dextrose (Heparin Sodium/Dextrose) 25,000 units in 500 mls @ 23 mls/hr IV .[id number] [facility]; Protocol Stop: 12/15/18 22:29 Last Titration: 11/16/18 06:52 Dose: 1,150 units/hr, 23 mls/hr Documented by: Sodium Chloride (Nss 1000ml) 1,000 mls @ 100 mls/hr IV .Q10H [facility] Stop: 12/16/18 10:29 Last Admin: 11/16/18 10:26 Dose: 100 mls/hr Documented by: Insulin Aspart (Novolog Flexpen) 0 units SC ACHS [facility] Stop: 12/15/18 21:36 Last Admin: 11/16/18 07:53 Dose: 5 units Documented by: Insulin Glargine (Lantus Solostar Pen) 0 units SC BID [facility]; Protocol Stop: 12/16/18 20:59 Levothyroxine Sodium (Synthroid) 88 mcg PO DAILYBB [facility] Stop: 12/16/18 06:29 Last Admin: 11/16/18 05:19 Dose: 88 mcg Documented by: Lidocaine (Lidoderm 5%) 1 patch TD QAM [facility] Stop: 12/16/18 12:59 Lisinopril (Zestril) 20 mg PO QAM [facility] Stop: 12/16/18 08:59 Last Admin: 11/16/18 07:47 Dose: 20 mg Documented by: Metoprolol Tartrate (Lopressor) 2.5 mg IV Q4 PRN PRN Reason: Tachycardia Stop: 12/15/18 21:36 Last Admin: 11/16/18 00:32 Dose: 2.5 mg Documented by: Metoprolol Tartrate (Lopressor) 25 mg PO BID [facility] Stop: 12/16/18 20:59 Miscellaneous (Carbohydrates For Hypoglycemia) 15 - 30 gm PO UD PRN PRN Reason: Hypoglycemia Treatment Stop: 12/15/18 22:44 Miscellaneous (Remove Nicoderm Patch) 1 ea N/A HS [facility] Stop: 12/16/18 20:59 Miscellaneous (Remove Lidoderm Patch) 1 ea N/A DAILY@2100 [facility] Stop: 12/16/18 20:59 Miscellaneous Information (Consult Glycemic Management Pharmacy) 1 ea N/A DAILY PRN PRN Reason: Consult Stop: 12/15/18 23:40 Nicotine (Nicoderm Cq) 21 mg TD DAILY [facility] Stop: 12/15/18 22:39 Last Admin: 11/16/18 07:48 Dose: 21 mg Documented by: Nitroglycerin (Nitrostat) 0.4 mg SL UD PRN PRN Reason: Chest Pain Stop: 12/15/18 21:36 Ondansetron HCl (Zofran) 4 mg IV Q6H PRN PRN Reason: Nausea Stop: 12/15/18 21:36 Oxycodone HCl (Roxicodone Immediate Rel) 5 mg PO Q6H PRN PRN Reason: Pain Stop: 11/29/18 22:38 Last Admin: 11/16/18 05:19 Dose: 5 mg Documented by: Tamsulosin HCl (Flomax) 0.4 mg PO QAM [facility] Stop: 12/16/18 08:59 Last Admin: 11/16/18 07:48 Dose: 0.4 mg Documented by: Trazodone HCl (Desyrel) 150 mg PO [facility] Stop: 12/15/18 21:36 Last Admin: 11/15/18 22:59 Dose: 150 mg Documented by: (1) Hyperglycemia due to type 2 diabetes mellitus Diabetes mellitus oil heaterman insulin use: without usp use Qualified Code(s): E11.65 - Type 2 diabetes mellitus with hyperglycemia
--- NOTE | 2018-11-16 12:41 | Hospitalist Progress Note ---
Date of Service November 16, 2018 Assessment & Plan (1) Hyperglycemia due to type 2 diabetes mellitus: -used to be on metformin, but stopped taking it because of diarrhea and family doctor prescribed Jardiance, but he could not take it because of the cost. -HbA1c on 07/29/2018 was 7.9; current hbA1c 9.8 -admission glucose 494 on 11/15/18, glucose have downtrended with IV fluids and Insulin to 200 by 11/16/18 -given uncontrolled diabetes mellitus with hyperglycemia, have discussed with patient about discharge medications likely to be insulin if patient is willing to take this medication as outpatient -will continue with insulin as inpatient as per pharmacy glycemic control Paroxysmal atrial fibrillation / Tachy-maria antonia syndrome -Telemetry however has revealed multiple pauses of 4 to 4.5 seconds; cardiology service recommends pacemaker placement on this hospital admission -cardiology service advised to stop his metoprolol succinate, and and observe him off of AV perri blockers -patient is on heparin drip for anticoagulation to prevent stroke risk, cardiology service considering to place patient on coumadin once pacemaker is placed but this depends on patient's compliance on INR testing when outpatient -echocardiogram completed Hypothyroidism. -on Levothyroxine 88 mcg daily -check TSH Hypertension -Continue his lisinopril 20 daily History of abdominal aortic aneurysm, 3.3 cm. -due for a repeat abdominal ultrasound in September 2019 as outpatient Tobacco abuse -Needs counseling -no respiratory distress at this time Hyperlipidemia -lipid profile with elevated Triglyceride 576, elevated cholesterol 214, low HDL of 10 -start atorvastatin 40 mg daily Benign prostatic hyperplasia -continue his Flomax Chronic Lower Back Pain -reports chronic low back pain of the lumbar sacral spine -patient takes medical marijuana at home -continue home medication of gabapentin 300 mg TID, and Trazodone 150 mg hs -start Flexeril 5 mg TID, Fentanyl Patch to lower back Deep venous thrombosis prophylaxis, IV heparin. full code. Subjective patient's main concern has been how to treat chronic low back pain. he is agreeable to muscle relaxers and lidocaine patch. have discussed with patient about plans for glucose control and cardiology service concerns on the need for pacemaker. at this time, patient denies palpitations, no chest pain, nor shortness of breath. no vomiting today. no headache. no dizziness Physical Exam Constitutional: WD/WN, vitals as above Eyes: PERRL, conjunctivae normal, anicteric sclerae EOM intact bilaterally ENMT: external ear and nose normal, oropharynx normal Neck: trachea midline, no thyromegaly normal visual inspection Respiratory: normal respiratory effort, lungs clear to auscultation Cardiovascular: Rate/Rhythm: + irregularly irregular Gastrointestinal (Abdomen): normal bowel sounds, soft, nontender, no hepatosplenomegaly Musculoskeletal: Head/Neck/Chest: normocephalic and head atraumatic lower lumbar tenderness as per patient Neurologic: PERRL, EOMI, accommodation nl, no face palsy, no dysarthria CN's II-XI intact bilaterally Psychiatric: A+Ox3, euthymic affect Results & Data Vital Signs (Past 12 Hours) Vital Signs Temp Pulse Resp BP BP Pulse Ox 11/16/18 11:00 36.6 C 94 H 20 142/93 H 93 11/16/18 07:31 36.5 C 126 H 20 144/94 H 95 11/16/18 03:49 36.6 C 77 18 126/82 94 (1) Hyperglycemia due to type 2 diabetes mellitus Diabetes mellitus [facility] insulin use: without terminal worker use Qualified Code(s): E11.65 - Type 2 diabetes mellitus with hyperglycemia
[2018-11-16] MEDS: LIDOCAINE 5% 1 PATCH TD SCH (12:46)
[2018-11-16] MEDS ORDERED: HEPARIN IV BOLUS 3,000 UNITS in SYRINGE 0 ML IV ONE (13:30)
[2018-11-16] MEDS: ATORVASTATIN 40 MG TAB PO SCH (13:39)
[2018-11-16 19:41] LABS: Partial Thromboplastin Ratio 1.8
[2018-11-16 19:43] LABS: Partial Thromboplastin Time 48.6 Seconds (21.0-31.0)
[2018-11-16] MEDS: Heparin Adult LOW DOSE Wt-Based Dextrose 5% 25,000 units/500 mL IV SCH (19:54)
[2018-11-16] MEDS ORDERED: METOPROLOL TARTRATE 25 MG TAB PO SCH (21:00)
[2018-11-16] MEDS ORDERED: INSULIN GLARGINE SOLOSTAR 100 UNITS/ML 3 ML PEN SC SCH (21:00)
[2018-11-16] MEDS: TRAZODONE HCL 50 MG TAB PO SCH (22:00)
[2018-11-17] MEDS: SODIUM CHLORIDE 0.9% 1000ML 1,000 ML IV SCH ×2 (06:42→17:04)
[2018-11-17] MEDS: LEVOTHYROXINE SODIUM 88 MCG TABLET PO SCH (06:43)
[2018-11-17] MEDS: OXYCODONE HCL IR 5 MG TAB (IMMEDIATE RELEASE) PO PRN ×3 (06:45→20:10)
[2018-11-17 07:59] LABS: Partial Thromboplastin Ratio 1.6; Partial Thromboplastin Time 44.2 Seconds (21.0-31.0)
[2018-11-17] MEDS: GABAPENTIN 300 MG CAP PO SCH ×3 (08:06→20:10)
[2018-11-17] MEDS: TAMSULOSIN HCL 0.4 MG CAP PO SCH (08:06)
[2018-11-17] MEDS: ATORVASTATIN 40 MG TAB PO SCH (08:06)
[2018-11-17] MEDS: LISINOPRIL 20 MG TAB PO SCH (08:06)
[2018-11-17] MEDS: ASPIRIN 81 MG ECTAB PO SCH (08:06)
[2018-11-17] MEDS: NICOTINE 21 MG/24 HR TDSY TD SCH (08:07)
[2018-11-17] MEDS: LIDOCAINE 5% 1 PATCH TD SCH (08:07)
[2018-11-17] MEDS: INSULIN ASPART 100 UNITS/ML 3 ML PEN SC SCH ×4 (08:08→21:51)
[2018-11-17] MEDS ORDERED: HEPARIN IV BOLUS 3,000 UNITS in SYRINGE 0 ML IV ONE (08:28)
--- NOTE | 2018-11-17 08:49 | Pharmacy Report ---
Pharmacy Glycemic Short Note 2 - Date of Service November 17, 2018 - Glycemic Short BSG Results (Last 24 hours): 11/16/18 11/16/18 11/16/18 11:21 16:18 20:14 POC Glucose 203 H 149 H 163 H 11/17/18 07:37 POC Glucose 161 H OUTPATIENT ANTIDIABETIC REGIMEN: * N/A not taking anything secondary to cost * had Rx for metformin and Jardiance ASSESSMENT: * 58yo T2DM male with poor outpatient control secondary to not taking outpatient antidiabetic medications due to cost/affordability. Pt also does not tolerate metformin secondary to GI side effects/issues. * A1c was 7.9% in July of this year. Now A1c increased to 9.8%. Pt will need most likely need two agents at [place] for A1c >9% * Triglycerides and LDL also elevated. * Initiated SQ basal bolus insulin regimen yesterday based on weight. * Goal is to maintain BSGs <180 mg/dl. * Pt received ~ 80 units of insulin today * AM fasting BSG near goal range at 161 mg/dl this morning. Expect BSG to continue to decrease with repeated dosing of Lantus once at steady state. Lantus is currently being dosed BID- will change to daily to increase compliance * Post-prandial BSGs trending downwards with current CF/CR but are in goal range PLAN FOR INPATIENT GLYCEMIC CONTROL: Continue SQ basal bolus insulin regimen based on total daily dose of ~ 80 units/day, change Lantus to once daily. * Basal insulin: * Lantus 45 units SQ daily in AM * Bolus insulin * NovoLog per scale ACHS or Q6hrs while NPO * Goal Range: Low 110 mg/dL - High 150 mg/dL * Correction Factor: 20 mg/dL/unit * Nutritional / Prandial insulin per carb ratio of 1 unit per 6 grams CHO consumed Looking ahead to discharge: * Will need to assess patient's willingness to do insulin injections * Will need to keep regimen simple and affordable - recommend ReliOn 70/30 premixed insulin SQ BIDM. Only costs ~$25/vial. Dosing TBD. Estimating ~ 0.4- 0.8 units/kg/day total daily dose split BIDM. * May also consider "generic" Lantus (basaglar) once daily plus NovoLog or Regular insulin with meals (fixed dose vs CHO counting)
[2018-11-17] MEDS ORDERED: INSULIN GLARGINE SOLOSTAR 100 UNITS/ML 3 ML PEN SC SCH (09:00)
--- NOTE | 2018-11-17 10:24 | Cardiology Progress Note ---
Date of Service November 17, 2018 Assessment & Plan (1) Paroxysmal atrial fibrillation: (2) Tachy-maria antonia syndrome: Patient with multiple 4-5 second pauses am of 11/16 in the setting of AF RVR. Will consult EP regarding advice for management. Remain of beta kyaw for now. LVEF normal on echo this admission. Regarding stroke prophylaxis: Pt had [id number] score of 3 for h/o DM, HTN, and AAA (3.3 cm) placing him at moderately high risk for cardioembolic stroke and anticoagulation is indicated. Continue heparin infusion for now , pending possible need for procedure. Then coumadin. Pt agreeable to EP consult. Subjective Chief Complaint: follow up generalized weakness Subjective: patient feels better this am. More energy noted. Blood glucose improved with IVF. On telemetry pt converted from AF to SR yesterday at 1:38 pm witout a pause at that time. Review of Systems Review of Systems: All systems reviewed & are unremarkable except as noted in HPI & below Physical Exam Constitutional: no acute distress Respiratory: normal respiratory effort, lungs clear to auscultation Cardiovascular: RRR, no murmur, no edema Vessels: no JVD Extremities: no edema Gastrointestinal (Abdomen): normal bowel sounds, soft, nontender, no hepatosplenomegaly Skin: no rashes, warm and dry Neurologic: moves all extremities; no focal motor deficits no focal deficits Results & Data Vital Signs (Past 12 Hours) Vital Signs Temp Pulse Resp BP BP Pulse Ox 11/17/18 07:30 36.3 C L 63 19 158/92 H 95 11/17/18 04:00 36.8 C 59 L 18 96 11/16/18 23:05 36.7 C 78 17 129/87 91 Laboratory Results Cardiac Enzymes 11/16/18 Range/Units 10:04 Troponin I < 0.015 (0-0.045) ng/ml Coagulation 11/16/18 11/16/18 11/17/18 Range/Units 11:09 19:07 07:28 APTT 43.9 H 48.6 H* 44.2 H (21.0-31.0) Seconds Intake and Output 11/16/18 11/17/18 11/17/18 22:59 06:59 14:59 Intake Total 1833.751 / 4934.801 1000 / 4934.801 317.083 / 317.083 Balance 1833.751 / 4934.801 1000 / 4934.801 317.083 / 317.083 Intake: IV 1113.751 / 3699.801 1000 / 3699.801 317.083 / 317.083 HEPARIN SODIUM/DEXTROSE 25,000 167.084 / 313.134 317.083 / 317.083 units In 500 ml @ 1,250 UNITS/ HR 25 mls/hr IV .Q20H MAGNO Rx#: [id number] Nss 1000ML 1,000 ml @ 100 mls/ 946.667 / 3521.350 7593 / 1946.667 hr IV .Q10H MAGNO Rx#:[id number] Oral 720 / 1235 Other: # Unmeasured Voids 2 Weight 104.8 kg Diagnostic Findings EKG this am 11/17/09 reveals SR at 61 bpm, with first degree AV block, normal ST segments, normal QTc of 430.
[2018-11-17 10:42] LABS: Albumin Level 3.3 gm/dl (3.4-5.0); BUN Creatinine Ratio 10.6 (10-20); Calcium 8.6 mg/dl (8.5-10.1); Creatinine Clr Calc Pharmacy 98.1 ml/min; Est GFR (African American) 101.7; Est GFR (Non-African American) 87.8; Potassium 4.1 mmol/L (3.5-5.1)
[2018-11-17 10:45] LABS: Albumin Globulin Ratio 1.2 (0.9-2); Bilirubin,Total 0.4 mg/dl (0.2-1); Globulin 2.7 gm/dl (2.5-4.0)
--- NOTE | 2018-11-17 12:20 | Cardiology Consultation ---
Date of Consultation November 17, 2018 Assessment & Plan (1) Paroxysmal atrial fibrillation: He has paroxysmal atrial fibrillation, it has been documented in the past however the extent of it is not clear. He is not very symptomatic during it (he did not really come in because of that sensation, he was having other symptoms this admission) therefore not sure how much of it he has. He may have a lot more atrial fibrillation than we have recognized. I agree he should be on a long-term anticoagulant. Rate control would also be highly desirable, although that is problematic with his sinus pauses. (2) Sinus node dysfunction: He has abnormal sinus perri function as evidenced by long pauses at termination of atrial fibrillation (consistent with a very abnormal sinus node recovery time). He has had multiple pauses in excess of 3 seconds, longest being about 4.5 seconds. Although he is asymptomatic these are very worrisome, especially in view of the need for medication such as beta-blockade or calcium blockade to control his tachycardia. I believe it would be safest to implant a pacemaker, not only for the pauses that we have observed but also to allow medical control of his tachycardia. (3) Tachy-maria antonia syndrome: He does have tachybradycardia syndrome with atrial fibrillation and a rapid heart rate as well as sinus node dysfunction with a markedly prolonged sinus node recovery time. I would recommend a pacemaker. After that we should probably use medications to control his tacky arrhythmia. A secondary benefit to having 1 of the modern pacemakers in place is that it does afford antita chycardia pacing which might be beneficial. Additionally his pattern on telemetry here suggested that he may have pause dependent return of atrial fibrillation and atrial pacing may help control the frequency of atrial fibrillation. I discussed pacemaker implantation with him, including the indications, procedure, risks and alternatives and he is agreeable. We will tentatively plan on pacemaker implantation tomorrow. Probably late morning early afternoon, schedule dependent. History of Present Illness Reason for Consultation: Tachybradycardia syndrome Requesting Physician: Dr Reece Attending Physician: Reece Carlson MD History of Present Illness This is a very pleasant 58-year-old gentleman who has a history of supraventricular arrhythmias, this was observed in September 2017 when he was admitted with flu and had atrial fibrillation that admission. That was the only recorded episode of atrial fibrillation although he now presents with feelings of dry mouth,. Speech, foggy mind, shortness of breath, frequent urination and hyperglycemia. On evaluation electrocardiography was done and he was noted to be in atrial fibrillation at 136 bpm. He does not have symptoms related to the atrial fibrillation itself, he does note a little bit of unsteadiness (to the point where he has not wanted to ride his motorcycle recently) but no other symptoms. On the monitor for several days he initially had frequent termination of his atrial fibrillation with long pauses before return of sinus rhythm which generally immediately caused recurring atrial fibrillation. He had many pauses in excess of 3 seconds, the longest of which was 4.5 seconds. He had heart rates in the 155 bpm range frequently at this time. Rate controlling meds were not used due to the long pauses. He then converted to sinus rhythm and has maintained sinus rhythm without significant bradycardia now that he has not had atrial fibrillation since yesterday. At the time of my evaluation he was feeling well. His symptoms have mostly resolved, he is not having lightheadedness or dizziness and has no cardiac symptoms palpitations. Allergies Allergy/AdvReac Type Severity Reaction Status Date / Time No Known Allergies Allergy Verified 11/15/18 20:18 Home Medications Home Medications Medication Instructions Recorded Confirmed Type aspirin [Aspirin Low Dose] 81 mg PO QAM 08/07/18 11/15/18 History gabapentin 300 mg PO TID 08/07/18 11/15/18 History levothyroxine 88 mcg PO QAM 08/07/18 11/15/18 History tamsulosin 0.4 mg PO QAM 08/07/18 11/15/18 History trazodone 150 mg PO HS 08/07/18 11/15/18 History lisinopril 20 mg PO QAM 11/15/18 11/15/18 History metoprolol succinate 12.5 mg PO DAILY 11/15/18 11/15/18 History metoprolol succinate 12.5 mg PO QAM 11/15/18 11/15/18 History Patient History Medical History Hypothyroid (Chronic) Hypertension (Chronic) Diabetes (Chronic) Dyslipidemia (Chronic) Hepatitis C (Chronic) Anxiety (Chronic) Diabetic neuropathy (Chronic) Diverticulosis (Chronic) Biceps tendon rupture (Chronic) "s/p repair" Antisocial personality disorder Bipolar disorder, unspecified SVT (supraventricular tachycardia) Depression, major, recurrent, moderate (Chronic) Nicotine abuse (Chronic) Surgical History H/O left inguinal hernia repair (Chronic) Hx of tonsillectomy (Chronic) Social History Preferred Language: Greek Communication Ability: Effective Beliefs That Will Affect Care: None marital status: Current Living Situation: Spouse current occupational status: disabled Other Information That Helps Us Care for You: No Feels Safe at Home: Yes Safety Concerns: Feels Safe At This Time Smoking Status: Current every day smoker Tobacco Type: cigarettes Tobacco Cessation Education Requested by Patient: No Hx Alcohol Use: No Hx Substance Use: Yes substance use type: marijuana Last Used Substance: Hours (ago) Physical Exam Physical Exam: Constitutional: Alert, cooperative and in no distress. HEENT: Unremarkable Neck: No jugular venous distention, carotid pulses are normal and equal bilaterally without bruits. Pulmonary: Clear to auscultation bilaterally. Cardiac: Regular rhythm with no murmur, gallop or rub. Abdomen: Soft, nontender with normal bowel sounds. Extremities: No edema. Distal pulses intact. Neurologic: No focal findings. Gait is steady. Skin: No rash, ecchymoses or petechiae. Results & Data Vital Signs (Past 12 Hours) Vital Signs Temp Pulse Resp BP Pulse Ox 11/17/18 10:43 36.4 C L 63 19 138/79 91 11/17/18 07:30 36.3 C L 63 19 158/92 H 95 11/17/18 04:00 36.8 C 59 L 18 96 Diagnostic Findings An electrocardiogram done this morning at 8:12 AM shows sinus rhythm at 61 bpm, MO interval is minimally prolonged at just over 200 ms. In comparison and electrocardiogram done November 16, 2018 shows atrial fibrillation at 89 bpm. On November 15, 2018 he was in atrial fibrillation with a heart rate of 136 bpm. An echocardiogram done on November 16, 2018 (during atrial fibrillation) shows normal left ventricular size and function with no wall motion abnormalities. Left atrial size was also normal. Telemetry: As noted in the HPI.
--- NOTE | 2018-11-17 14:32 | Hospitalist Progress Note ---
Date of Service November 17, 2018 Assessment & Plan (1) Hyperglycemia due to type 2 diabetes mellitus: -used to be on metformin, but stopped taking it because of diarrhea and family doctor prescribed Jardiance, but he could not take it because of the cost. -HbA1c on 07/29/2018 was 7.9; current hbA1c 9.8 -admission glucose 494 on 11/15/18, glucose have downtrended with IV fluids and Insulin to 200 by 11/16/18 -given uncontrolled diabetes mellitus with hyperglycemia, have discussed with patient about discharge medications likely to be insulin if patient is willing to take this medication as outpatient -will continue with insulin as inpatient as per pharmacy glycemic control Paroxysmal atrial fibrillation / Tachy-maria antonia syndrome -Telemetry however has revealed multiple pauses of 4 to 4.5 seconds; cardiology service recommends pacemaker placement on this hospital admission -cardiology service advised to stop his metoprolol succinate, and and observe him off of AV perri blockers -patient is on heparin drip for anticoagulation to prevent stroke risk, cardiology service considering to place patient on coumadin once pacemaker is placed but this depends on patient's compliance on INR testing when outpatient -echocardiogram completed and no ischemia -Patient returned to sinus rhythm on 11/16/18 but based on cardiology recommendations of previous arrhythmia and pauses, that patient would benefit for pacemaker placement which may be scheduled on 11/18/18 as inpatient Hypothyroidism. -on Levothyroxine 88 mcg daily -TSH within normal parameters as 1.2 Hypertension -has been on lisinopril 20 daily, hold on 11/18/18 for pacemaker placement History of abdominal aortic aneurysm, 3.3 cm. -due for a repeat abdominal ultrasound in September 2019 as outpatient Tobacco abuse -counseling to quit -no respiratory distress at this time Hyperlipidemia -lipid profile with elevated Triglyceride 576, elevated cholesterol 214, low HDL of 10 -start atorvastatin 40 mg daily Benign prostatic hyperplasia -continue Flomax Chronic Lower Back Pain -reports chronic low back pain of the lumbar sacral spine -patient takes medical marijuana at home -continue home medication of gabapentin 300 mg TID, and Trazodone 150 mg hs -back pain controlled off flexeril and without lidocaine patch as patient had de clined Deep venous thrombosis prophylaxis, IV heparin. full code. Subjective Patient does not report back pain today. He is more pleasant mood today. denies chest pain. no palpitations. no lightheadedness. no dizziness. Patient returned to sinus rhythm on 11/16/18 but based on cardiology recommendations of previous arrhythmia and pauses, that patient would benefit for pacemaker placement which may be scheduled on 11/18/18 as inpatient Physical Exam Constitutional: WD/WN, vitals as above Eyes: PERRL, conjunctivae normal, anicteric sclerae EOM intact bilaterally ENMT: external ear and nose normal, oropharynx normal Neck: trachea midline, no thyromegaly normal visual inspection Respiratory: normal respiratory effort, lungs clear to auscultation Cardiovascular: Rate/Rhythm: regular rhythm and + bradycardic Gastrointestinal (Abdomen): normal bowel sounds, soft, nontender, no hepatosplenomegaly Musculoskeletal: Head/Neck/Chest: normocephalic and head atraumatic Neurologic: PERRL, EOMI, accommodation nl, no face palsy, no dysarthria CN's II-XI intact bilaterally Psychiatric: A+Ox3, euthymic affect Results & Data Vital Signs (Past 12 Hours) Vital Signs Temp Pulse Resp BP Pulse Ox 11/17/18 10:43 36.4 C L 63 19 138/79 91 11/17/18 07:30 36.3 C L 63 19 158/92 H 95 11/17/18 04:00 36.8 C 59 L 18 96 (1) Hyperglycemia due to type 2 diabetes mellitus Diabetes mellitus care home insulin use: without care home use Qualified Code(s): E11.65 - Type 2 diabetes mellitus with hyperglycemia
[2018-11-17] MEDS: Heparin Adult LOW DOSE Wt-Based Dextrose 5% 25,000 units/500 mL IV SCH (15:58)
[2018-11-17 16:38] LABS: Partial Thromboplastin Ratio 1.7
[2018-11-17] MEDS: TRAZODONE HCL 50 MG TAB PO SCH (21:49)
[2018-11-17 23:30] LABS: Partial Thromboplastin Ratio 1.7
[2018-11-17 23:56] LABS: Partial Thromboplastin Time 45.2 Seconds (21.0-31.0)
[2018-11-18] MEDS: INSULIN ASPART 100 UNITS/ML 3 ML PEN SC SCH ×6 (00:21→20:48)
[2018-11-18] MEDS: OXYCODONE HCL IR 5 MG TAB (IMMEDIATE RELEASE) PO PRN ×2 (03:48→17:00)
[2018-11-18] MEDS ORDERED: CEFAZOLIN 2000MG 2,000 MG/15 ML SYR IV SCH (06:00)
[2018-11-18 06:31] LABS: Basophils # (auto) 0.03 K/uL (0-0.2); Basophils % (auto) 0.5 %; Eosinophils # (auto) 0.15 K/uL (0-0.5); Eosinophils % (auto) 2.7 %; Hematocrit (blood only) 45.6 % (42-52); Hemoglobin 15.5 g/dL (14.0-18.0); Immature Granulocytes # (auto) 0.08 K/uL (0.00-0.02); Immature Granulocytes % (auto) 1.4 %; Lymphocytes # (auto) 1.99 K/uL (1.2-3.4); Lymphocytes % (auto) 35.5 %; Mean Corpuscular Volume 90.1 fL (80-100); Mean Platelet Volume 10.4 fL (7.4-10.4); Monocytes # (auto) 0.73 K/uL (0.11-0.59); Neutrophils # (auto) 2.62 K/uL (1.4-6.5); Neutrophils % (auto) 46.9 %; Platelet Count 154 K/uL (130-400); RDW Coefficient of Variation 13.1 % (11.5-14.5); RDW Standard Deviation 42.9 fL (36.4-46.3); Red Blood Count 5.06 M/uL (4.7-6.1)
[2018-11-18 06:42] LABS: Partial Thromboplastin Time 26.8 Seconds (21.0-31.0)
[2018-11-18] MEDS: LEVOTHYROXINE SODIUM 88 MCG TABLET PO SCH (07:10)
[2018-11-18 07:11] LABS: Albumin Globulin Ratio 1.1 (0.9-2); Albumin Level 3.3 gm/dl (3.4-5.0); BUN Creatinine Ratio 9.4 (10-20); Bilirubin,Total 0.4 mg/dl (0.2-1); Calcium 8.6 mg/dl (8.5-10.1); Creatinine Clr Calc Pharmacy 96.6 ml/min; Est GFR (African American) 100.4; Est GFR (Non-African American) 86.7; Globulin 3.1 gm/dl (2.5-4.0); Potassium 3.9 mmol/L (3.5-5.1); Total Protein 6.4 gm/dl (6.4-8.2)
[2018-11-18] MEDS: ATORVASTATIN 40 MG TAB PO SCH (08:20)
[2018-11-18] MEDS: TAMSULOSIN HCL 0.4 MG CAP PO SCH (08:20)
[2018-11-18] MEDS: ASPIRIN 81 MG ECTAB PO SCH (08:20)
[2018-11-18] MEDS: GABAPENTIN 300 MG CAP PO SCH ×3 (08:20→20:49)
[2018-11-18] MEDS: NICOTINE 21 MG/24 HR TDSY TD SCH (08:33)
[2018-11-18] MEDS: LIDOCAINE 5% 1 PATCH TD SCH (08:34)
[2018-11-18] MEDS ORDERED: INSULIN GLARGINE SOLOSTAR 100 UNITS/ML 3 ML PEN SC SCH ×3 (09:00→21:00)
--- NOTE | 2018-11-18 09:07 | Cardiology Progress Note ---
Date of Service November 18, 2018 Assessment & Plan (1) Paroxysmal atrial fibrillation: He has paroxysmal atrial fibrillation, it has been documented in the past however the extent of it is not clear. He is not very symptomatic during it (he did not really come in because of that sensation, he was having other symptoms this admission) therefore we cannot be sure how much of it he has. I suspect he has a lot more atrial fibrillation than we have recognized, in part based on recurrence now several days after admission and asymptomatic. I agree he should be on a long-term anticoagulant. Rate control would also be highly desirable, although that is problematic with his sinus pauses. With a pacemaker we can treat his rate more appropriately. (2) Sinus node dysfunction: He has abnormal sinus perri function as evidenced by long pauses at termination of atrial fibrillation (consistent with a very abnormal sinus node recovery time). He has had multiple pauses in excess of 3 seconds, longest being about 4.5 seconds. Although he is asymptomatic these are very worrisome, especially in view of the need for medication such as beta-blockade or calcium blockade to control his tachycardia. I believe it would be safest to implant a pacemaker, not only for the pauses that we have observed but also to allow medical control of his tachycardia. (3) Tachy-maria antonia syndrome: He does have tachybradycardia syndrome with atrial fibrillation and a rapid heart rate as well as sinus node dysfunction with a markedly prolonged sinus node recovery time. I would recommend a pacemaker. After that we should probably use medications to control his tacky arrhythmia. A secondary benefit to having one of the modern pacemakers in place is that it does afford antitachycardia pacing which might be beneficial. Additionally his pattern on telemetry here suggested that he may have pause dependent return of atrial fibrillation and atrial pacing may help control the frequency of atrial fibrillation. I discussed pacemaker implantation with him, including the indications, procedure, risks and alternatives and he is agreeable. I reviewed that today and he has signed consent. I also discussed conscious sedation and he agrees and signed consent for that. We will plan on pacemaker implantation this morning. Subjective He is feeling well today, he continues to have no symptoms related to his arrhythmia. Physical Exam Physical Exam: Constitutional: Alert, cooperative and in no distress. Pulmonary: Clear to auscultation bilaterally. Cardiac: Irregular rhythm with no murmur, gallop or rub. Abdomen: Soft, nontender with normal bowel sounds. Extremities: No edema. Skin: No rash, ecchymoses or petechiae. Results & Data Vital Signs (Past 12 Hours) Vital Signs Temp Pulse Pulse Resp BP BP Pulse Ox 11/18/18 08:03 36.5 C 58 L 16 124/81 93 11/18/18 04:00 36.6 C 56 L 18 131/73 94 11/18/18 02:11 61 11/18/18 00:12 36.3 C L 86 19 116/73 94 Diagnostic Findings Telemetry: Sinus rhythm with periods of atrial fibrillation with a rapid heart rate, long pauses with frequent termination of his brief episode of atrial fibrillation remain.
[2018-11-18] MEDS ORDERED: BACITRACIN INJ 50,000 UNIT VIAL ONE (09:36)
[2018-11-18] MEDS ORDERED: BACITRACIN OINT 0.9 GM PKT ONE (09:36)
[2018-11-18] MEDS ORDERED: LIDOCAINE HCL 1% 20 ML VIAL ONE (09:36)
--- NOTE | 2018-11-18 09:57 | Pre Anesthesia Assessment ---
Date of Service November 18, 2018 Pre Sedation Assessment Vital Signs Temp Pulse Pulse Resp BP BP Pulse Ox 11/18/18 08:03 36.5 C 58 L 16 124/81 93 11/18/18 04:00 36.6 C 56 L 18 131/73 94 11/18/18 02:11 61 11/18/18 00:12 36.3 C L 86 19 116/73 94 11/17/18 19:30 36.6 C 56 L 18 138/92 95 11/17/18 15:21 36.4 C L 65 20 146/84 H 93 11/17/18 10:43 36.4 C L 63 19 138/79 91 Cardiovascular + irregularly irregular Respiratory normal respiratory effort, lungs clear to auscultation Pre-Sedation Airway Assessment Smoking Status: Current every day smoker Hx Sleep Apnea: No Hx Difficult Intubation: No Short, Thick Neck: No Thyromental Distance: > or= 3.5 Finger Breadths Mallampati Class: II ALA III NPO Status Date of Last Intake of Fluids: 11/17/18 Date of Last Intake of Solid Food: 11/17/18 Procedure Planning Contraindications for Sedation: none Current Medications Reviewed: Yes Notes The planned sedation has been discussed with the patient. Informed Consent was obtained. I have identified the patient, determined the appropriateness of sedation and have assessed the patient immediately prior to the procedure. All medicine(s) and interventions are by my order.
[2018-11-18] MEDS ORDERED: CEFAZOLIN 250 MG/ML 1 GM VIAL ONE (10:37)
[2018-11-18] MEDS ORDERED: MIDAZOLAM HCL 5 MG/ML 1 ML VIAL ONE (10:38)
[2018-11-18] MEDS ORDERED: fentaNYL citrate 100 MCG/2 ML VIAL ONE ×2 (10:38→11:20)
--- NOTE | 2018-11-18 12:03 | Operative Report ---
Post Operative Report Pre & Post Diagnosis Operation Date: 11/18/18 10:00 Preoperative diagnosis: Sick sinus syndrome Postoperative diagnosis: Same Procedure Operation Date: 11/18/18 10:00 Actual Procedures p Pacer with A/V Leads (Dual)(Right) - Dhruv Youngblood MD s Venogram, Unilateral(Right) - Dhruv Youngblood MD Surgeon Dhruv Youngblood MD Building Illuminating Engineer None Estimated Blood Loss 50 Findings Consistent with Post-Op Diagnosis Patent right subclavian vein Good lead positions in good measurements Specimens None Complications none Disposition Accompanied Patient To Recovery: No Disposition: PCU Description of Procedure After obtaining informed consent for the procedure, the patient was brought to the laboratory and dye was injected the right arm IV site to opacify the right subclavian vein. This was done due to the presence of right shoulder surgery in the past, and he requested the right side be used due to his tattoo on the left. The subclavian vein was identified and found to be free of obstruction. He was prepped and draped in the standard sterile manner. The right prepectoral region was anesthetized with 1% lidocaine local anesthetic and right axillary venipuncture was performed by percutaneous technique and a guidewire placed through the right subclavian vein into the superior vena cava. The area was further infiltrated with 1% lidocaine local anesthetic and a 5 cm incision was made parallel to the right clavicle and 2 cm below it and carried down to the anterior pectoralis fascia. A pacemaker pocket was formed by blunt dissection anterior to the pectoralis fascia and a bacitracin-soaked sponge (50,000 units in 50 cc normal saline solution) was placed in the pocket. An 8 Maori Medtronic lead introducer was placed over the guidewire into the right subclavian vein, the dilator and guidewire were removed and a bipolar active fixation steroid tipped ventricular lead was advanced through the introducer into the superior vena cava. A guidewire was placed through the introducer and the introducer was stripped from the lead and guidewire. Another 8 Ma[place] Medtronic lead introducer was placed over the guidewire into the right subclavian vein, the dilator and guidewire were removed and a bipolar active fixation steroid tipped atrial lead was advanced through the introducer into the superior vena cava. A guidewire was placed back through the introducer and the introducer was stripped from the lead and guidewire. Using a curved stylette the ventricular lead was advanced through the right ventricular outflow tract into the pulmonary artery and then using a straight stylette was positioned in the right ventricular apex. The screw was extended fixing the lead in position. Pacing and sensing thresholds were evaluated in bipolar configuration and are recorded on the implant data sheet. Using a curved stylette the atrial lead was positioned in the region of the atrial appendage and the screw extended fixing the lead in position. Pacing and sensing thresholds were evaluated in bipolar configuration and are recorded on the implant data sheet. Once the leads were in position they were attached to the anterior pectoralis fascia using 2 sutures of 2-0 silk around each lead collar. The bacitracin- soaked sponge was removed from the pocket, hemostasis was obtained, the pacemaker was attached to the leads and placed in the pocket with the leads coiled beneath it. The incision was closed with a running double subcutaneous closure of 3-0 Vicryl absorbable suture, followed by running subcuticular skin closure of 4-0 Vicryl absorbable suture. Bacitracin ointment was placed on the incision and a pressure dressing applied. I attest to the content of the Intraoperative Record and any orders documented therein. Any exceptions are noted below.
[2018-11-18] MEDS ORDERED: ACETAMINOPHEN 325 MG TAB PO PRN (12:11)
[2018-11-18] MEDS: LACTATED RINGER'S 1,000 ML IV SCH (12:35)
[2018-11-18] MEDS: METOPROLOL SUCC 50MG EXT REL TAB PO SCH (13:25)
[2018-11-18] MEDS: KETOROLAC TROMETHAMINE 10 MG TABLET PO PRN (13:25)
--- NOTE | 2018-11-18 13:49 | Pharmacy Report ---
Pharmacy Glycemic Short Note 2 - Date of Service November 18, 2018 - Glycemic Short BSG Results (Last 24 hours): 11/17/18 11/17/18 11/17/18 11:15 16:16 20:27 Glucose POC Glucose 185 H 205 H 119 H 11/18/18 11/18/18 11/18/18 00:18 03:46 06:18 Glucose 138 H POC Glucose 248 H 158 H 11/18/18 11/18/18 07:02 12:21 Glucose POC Glucose 127 H 116 H OUTPATIENT ANTIDIABETIC REGIMEN: * N/A not taking anything secondary to cost * had Rx for metformin and Jardiance ASSESSMENT: 5-6: * Patient received total of 79 units of insulin yesterday, of which 45 units were basal insulin * Fasting BSG 138 mg/dL - patient now NPO for pacemaker placement; will reduce AM dose by ~25% (typically 20%, but recently d/c'ed heparin drip) * Will order Lantus 33 units this morning and add scale for this evening, likely diet will resume later today * Lunchtime BSG within range 116 mg/dl - continue same CF/CR 5-5: * 58yo T2DM male with poor outpatient control secondary to not taking outpatient antidiabetic medications due to cost/affordability. Pt also does not tolerate metformin secondary to GI side effects/issues. * A1c was 7.9% in July of this year. Now A1c increased to 9.8%. Pt will need most likely need two agents at [place] for A1c >9% * Triglycerides and LDL also elevated. * Initiated SQ basal bolus insulin regimen yesterday based on weight. * Goal is to maintain BSGs <180 mg/dl. * Pt received ~ 80 units of insulin today * AM fasting BSG near goal range at 161 mg/dl this morning. Expect BSG to continue to decrease with repeated dosing of Lantus once at steady state. Lantus is currently being dosed BID- will change to daily to increase compliance * Post-prandial BSGs trending downwards with current CF/CR but are in goal range PLAN FOR INPATIENT GLYCEMIC CONTROL: Continue SQ basal bolus insulin regimen based on total daily dose of ~ 80 units/day, change Lantus to once daily. * Basal insulin: * Lantus 33 QAM - scale for HS since diet likely resuming * Bolus insulin - no change * NovoLog per scale ACHS or Q6hrs while NPO * Goal Range: Low 110 mg/dL - High 150 mg/dL * Correction Factor: 20 mg/dL/unit * Nutritional / Prandial insulin per carb ratio of 1 unit per 6 grams CHO consumed Looking ahead to discharge: * Will need to assess patient's willingness to do insulin injections * Will need to keep regimen simple and affordable - recommend ReliOn 70/30 premixed insulin SQ BIDM. Only costs ~$25/vial. Dosing TBD. Estimating ~ 0.4- 0.8 units/kg/day total daily dose split BIDM. * May also consider "generic" Lantus (basaglar) once daily plus NovoLog or Regular insulin with meals (fixed dose vs CHO counting)
--- NOTE | 2018-11-18 14:13 | Post Anesthesia Assessment ---
Date of Service November 18, 2018 Post Sedation Assessment Vital Signs Temp Pulse Pulse Resp BP BP Pulse Ox 11/18/18 12:56 36.7 C 66 18 137/91 95 11/18/18 12:41 36.7 C 60 18 137/91 96 11/18/18 12:26 36.5 C 67 18 120/83 95 11/18/18 12:11 36.5 C 65 18 144/95 H 95 11/18/18 08:03 36.5 C 58 L 16 124/81 93 11/18/18 08:00 72 11/18/18 04:00 36.6 C 56 L 18 131/73 94 11/18/18 02:11 61 11/18/18 00:12 36.3 C L 86 19 116/73 94 11/17/18 19:30 36.6 C 56 L 18 138/92 95 11/17/18 15:21 36.4 C L 65 20 146/84 H 93 Recovery Score Activity: Moves 4 extremities Respiration: Deep Breath/Cough Circulation: +/-20% PreAnes Value Consciousness: Fully Awake Oxygen Saturation: > 92% On Room Air Discharge Sedation Level of Care: Fast Track Phase II Post Sedation Plan On clinical assessment, the patient appears to have tolerated the sedation without complications. Patient is recovering as anticipated. Patient will continue to be monitored by nursing and may be discharged when sedation discharge criteria are met per below protocol. Upon Completions of procedure and additional 15 minutes continue every 5 minute vital signs and the P.A.R. score; then discharge to a Phase I or Fast Track to Phase II per the following guidelines: * Discharge Patient to appropriate Phase II area if PAR is 8 or greater or return to pre- procedure baseline. The post - procedure orders will be as directed. * If PAR score is less than 8 or not return to pre-procedure baseline then patient will follow Phase I monitoring till PAR is reached for Phase II. The Phase I may be done in procedure room or may call to secure a Phase I area. * If naloxone or flumazenil are used for reversal, hold in Phase I for continued monitoring from when last reversal dose was given for a minimum of 60 minutes or longer pending the nurse and/or physician discretion of patient condition before discharge to Phase II. Please call the Sedation Physician to re-evaluate and complete post-note for discharge to Phase II area. Do NOT discharge from procedure sedation or Phase 1 until post- sedation evaluation note is complete by procedure /sedation MD Sedation Discharge Instructions to be given to the patient at discharge to home.
--- NOTE | 2018-11-18 14:38 | Cardiology Progress Note ---
Date of Service November 18, 2018 Assessment & Plan (1) Paroxysmal atrial fibrillation: (2) Tachy-maria antonia syndrome: Status post dual-chamber pacemaker today. Metoprolol succinate 50 mg daily has been started. Start Coumadin 5 mg daily first dose this afternoon. Proceed with Coumadin initiation without heparin or Lovenox bridge in order to reduce risk of pacemaker pocket hematoma. Monitor on telemetry overnight, and will reassess with chest x-ray and pacemaker interrogation tomorrow. Will need to establish with [facility] anticoagulation clinic than outpatient. Discharge after arrhythmia issues and diabetes controlled. (3) Hyperglycemia due to type 2 diabetes mellitus: Subjective Chief complaint: Follow-up atrial fibrillation tachycardia bradycardia syndrome Subjective: Patient seen post implantation of dual-chamber pacemaker. Patient tolerated procedure well. He had been in atrial fibrillation this morning with recurrent episodes of 4-second pauses. He converted to sinus rhythm and during the procedure and is now in sinus rhythm upstairs on telemetry. He is received metoprolol succinate 50 mg post procedure, and is due for another dose tomorrow morning. Physical Exam Physical Exam: General: no acute distress and stated age Eyes: conjunctiva are pink and non-injected, sclera clear Neck: normal jugular venous pulse, no hepatojugular reflux Chest: normal shape and normal respiratory effort Right-sided infraclavicular pacemaker pocket Lungs: clear to auscultation and percussion Cardiac Exam: - regular heart sounds, no murmurs, rubs, or gallops, no jugular venous distention Abdomen: abdomen soft, non-tender, no abnormal masses and no hepatosplenomegaly Musculoskeletal: no gait disturbance, no weakness Neuro:awake, coversant, follows commands, no focal motor deficits Psych: appropriate affect and insight. Results & Data Vital Signs (Past 12 Hours) Vital Signs Temp Pulse Pulse Resp BP BP Pulse Ox 11/18/18 13:56 36.7 C 78 18 137/89 96 11/18/18 13:26 36.7 C 78 18 137/89 96 11/18/18 12:56 36.7 C 66 18 137/91 95 11/18/18 12:41 36.7 C 60 18 137/91 96 11/18/18 12:26 36.5 C 67 18 120/83 95 11/18/18 12:11 36.5 C 65 18 144/95 H 95 11/18/18 08:03 36.5 C 58 L 16 124/81 93 11/18/18 08:00 72 11/18/18 04:00 36.6 C 56 L 18 131/73 94 Laboratory Results Cardiac Enzymes 11/18/18 Range/Units 06:18 AST 43 H (15-37) U/L Coagulation 11/17/18 11/17/18 11/18/18 Range/Units 16:14 23:02 06:18 APTT 45.0 H 45.2 H* 26.8 (21.0-31.0) Seconds CBC 11/18/18 Range/Units 06:18 WBC 5.60 (4.8-10.8) K/uL RBC 5.06 (4.7-6.1) M/uL Hgb 15.5 (14.0-18.0) g/dL Hct 45.6 (42-52) % Plt Count 154 (130-400) K/uL Neut # (Auto) 2.62 (1.4-6.5) K/uL Lymph # (Auto) 1.99 (1.2-3.4) K/uL Potter # (Auto) 0.73 H (0.11-0.59) K/uL Eos # (Auto) 0.15 (0-0.5) K/uL Baso # (Auto) 0.03 (0-0.2) K/uL Comprehensive Metabolic Panel 11/18/18 Range/Units 06:18 Sodium 137 (136-145) mmol/L Potassium 3.9 (3.5-5.1) mmol/L Chloride 105 (98-107) mmol/L Carbon Dioxide 28 (21-32) mmol/L BUN 9 (7-18) mg/dl Creatinine 0.95 (0.6-1.4) mg/dl Glucose 138 H (70-99) mg/dl Calcium 8.6 (8.5-10.1) mg/dl AST 43 H (15-37) U/L ALT 78 (12-78) U/L Alkaline Phosphatase 72 (45-117) U/L Total Protein 6.4 (6.4-8.2) gm/dl Albumin 3.3 L (3.4-5.0) gm/dl Intake and Output 05/05/19 05/06/19 05/06/19 22:59 06:59 14:59 Intake Total 480.317 / 2266.150 213.75 / 2266.150 Balance 480.317 / 2266.150 213.75 / 2266.150 Intake: IV 260.317 / 1571.150 213.75 / 1571.150 HEPARIN SODIUM/DEXTROSE 25,000 260.317 / 791.150 213.75 / 791.150 units In 500 ml @ 1,350 UNITS/ HR 27 mls/hr IV .[id number] [facility] Rx #:[id number] Oral 220 / 695 Other: Other Intake Source sips # Unmeasured Voids 2 Weight 103.9 kg Diagnostic Findings EKG on arrival to floor after pacemaker today 11/18/2018 at 1226 revealed normal sinus rhythm at 63 bpm, normal EKG. Medications Administered Current Inpatient Medications Acetaminophen (Tylenol) 650 mg PO Q4H PRN PRN Reason: Pain or Fever Stop: 12/15/18 21:36 Last Admin: 11/18/18 00:26 Dose: 650 mg Documented by: Acetaminophen (Tylenol) 650 mg PO Q4H PRN PRN Reason: Mild pain (rating 1,2,3) Stop: 12/18/18 12:10 Aspirin (Ecotrin Ectab) 81 mg PO [facility] Stop: 12/16/18 08:59 Last Admin: 11/18/18 08:20 Dose: Not Given Documented by: Atorvastatin Calcium (Lipitor) 40 mg PO QAM [facility] Stop: 12/16/18 13:14 Last Admin: 11/18/18 08:20 Dose: Not Given Documented by: Dextrose (Dextrose 50%) 25 - 50 ml IV UD PRN; Protocol PRN Reason: Hypoglycemia Protocol Stop: 12/15/18 22:44 Gabapentin (Neurontin) 300 mg PO TID [facility] Stop: 12/15/18 21:36 Last Admin: 11/18/18 13:25 Dose: 300 mg Documented by: Glucagon (Glucagen) 1 mg SQ UD PRN; Protocol PRN Reason: Hypoglycemia Protocol Stop: 12/15/18 22:44 Glucose (Glucose 40%) 15 - 30 gm PO UD PRN; Protocol PRN Reason: Hypoglycemia Protocol Stop: 12/15/18 22:44 Glucose (Dex4 Glucose) 4 - 8 tabs PO UD PRN; Protocol PRN Reason: Hypoglycemia Protocol Stop: 12/15/18 22:44 Lactated Ringer's (Lr) 1,000 mls @ 15 mls/hr IV .Q24H [facility] Stop: 11/21/18 04:39 Last Admin: 11/18/18 12:35 Dose: Not Given Documented by: Cefazolin Sodium (Ancef 2000mg) 2,000 mg in 15 mls @ 3.75 mls/min IV PREOP [facility]; Protocol Stop: 11/18/18 18:00 Last Admin: 11/18/18 11:52 Dose: 3.75 mls/min Documented by: Insulin Aspart (Novolog Flexpen) 0 units SC ACHS [facility] Stop: 12/15/18 21:36 Last Admin: 11/18/18 12:36 Dose: Not Given Documented by: Insulin Aspart (Novolog Flexpen) 0 units SC 0000 [facility] Stop: 11/19/18 00:01 Insulin Glargine (Lantus Solostar Pen) 45 units SC DAILY [facility]; Protocol Stop: 12/19/18 08:59 Insulin Glargine (Lantus Solostar Pen) 0 units SC HS [facility]; Protocol Stop: 11/18/18 21:01 Ketorolac Tromethamine (Toradol) 10 mg PO Q6H PRN PRN Reason: Pain (rating 4,5,6,7,8,9,10) Stop: 11/23/18 12:10 Last Admin: 11/18/18 13:25 Dose: 10 mg Documented by: Levothyroxine Sodium (Synthroid) 88 mcg PO DAILYBB [facility] Stop: 12/16/18 06:29 Last Admin: 11/18/18 07:10 Dose: Not Given Documented by: Lidocaine (Lidoderm 5%) 1 patch TD [facility] Stop: 12/16/18 12:59 Last Admin: 11/18/18 08:34 Dose: Not Given Documented by: Lisinopril (Zestril) 20 mg PO [facility] Stop: 12/16/18 08:59 Last Admin: 11/17/18 08:06 Dose: 20 mg Documented by: Metoprolol Succinate ([facility] Xl) [facility] Stop: 12/18/18 12:59 Last Admin: 11/18/18 13:25 Dose: 50 mg Documented by: Metoprolol Tartrate (Lopressor) 2.5 mg IV Q4 PRN PRN Reason: Tachycardia Stop: 12/15/18 21:36 Last Admin: 11/16/18 00:32 Dose: 2.5 mg Documented by: Miscellaneous (Carbohydrates For Hypoglycemia) 15 - 30 gm PO UD PRN PRN Reason: Hypoglycemia Treatment Stop: 12/15/18 22:44 Miscellaneous (Remove Nicoderm Patch) 1 ea N/A HS [facility] Stop: 12/16/18 20:59 Last Admin: 11/17/18 20:07 Dose: Not Given Documented by: Miscellaneous (Remove Lidoderm Patch) 1 ea N/A DAILY@2100 [facility] Stop: 12/16/18 20:59 Last Admin: 11/17/18 20:07 Dose: Not Given Documented by: Miscellaneous Information (Consult Glycemic Management Pharmacy) 1 ea N/A DAILY PRN PRN Reason: Consult Stop: 12/15/18 23:40 Nicotine (Nicoderm Cq) 21 mg TD DAILY [facility] Stop: 12/15/18 22:39 Last Admin: 11/18/18 08:33 Dose: 21 mg Documented by: Nitroglycerin (Nitrostat) 0.4 mg SL UD PRN PRN Reason: Chest Pain Stop: 12/15/18 21:36 Ondansetron HCl (Zofran) 4 mg IV Q6H PRN PRN Reason: Nausea Stop: 12/15/18 21:36 Oxycodone HCl (Roxicodone Immediate Rel) 5 mg PO Q6H PRN PRN Reason: Pain Stop: 11/29/18 22:38 Last Admin: 11/18/18 03:48 Dose: 5 mg Documented by: Tamsulosin HCl (Flomax) 0.4 mg PO QAM [facility] Stop: 12/16/18 08:59 Last Admin: 11/18/18 08:20 Dose: Not Given Documented by: Trazodone HCl (Desyrel) 150 mg PO HS [facility] Stop: 12/15/18 21:36 Last Admin: 11/17/18 21:49 Dose: 150 mg Documented by: Warfarin Sodium (Coumadin) 5 mg PO DAILY@1600 [facility] Stop: 12/18/18 15:59 (1) Hyperglycemia due to type 2 diabetes mellitus Diabetes mellitus long chain beamer insulin use: without assisted use Qualified Code(s): E11.65 - Type 2 diabetes mellitus with hyperglycemia
[2018-11-18] MEDS: WARFARIN SOD 5 MG TAB PO SCH (17:00)
--- NOTE | 2018-11-18 17:10 | Hospitalist Progress Note ---
Date of Service November 18, 2018 Assessment & Plan (1) Hyperglycemia due to type 2 diabetes mellitus: -used to be on metformin, but stopped taking it because of diarrhea and family doctor prescribed Jardiance, but he could not take it because of the cost. -HbA1c on 07/29/2018 was 7.9; current hbA1c 9.8 -admission glucose 494 on 11/15/18, glucose have downtrended with IV fluids and Insulin to 200 by 11/16/18 -will continue with insulin as inpatient as per pharmacy glycemic control -patient was seen by assembler dc field yoke on 11/18/18 and that patient's most affordable insulin option would be Novolin ReliOn Insulin 70/30 at [facility] Paroxysmal atrial fibrillation / Tachy-maria antonia syndrome Anticoagulated on anticoagulation therapy -Telemetry has revealed multiple pauses of 4 to 4.5 seconds on this admission; cardiology service recommended pacemaker placement on this hospital admission and patient was anticoagulated on heparin drip -Patient returned to sinus rhythm on 11/16/18 but based on cardiology recommendations of previous arrhythmia and pauses, that patient would benefit for pacemaker placement and IV heparin continued -pacemaker placed on 11/18/18 and patient to started coumadin 5 mg daily without heparin bridge to goal INR of 2 to3 as per cardiology recommendations Hypothyroidism. -on Levothyroxine 88 mcg daily -TSH within normal parameters as 1.2 Hypertension -resume lisinopril 20 mg daily History of abdominal aortic aneurysm, 3.3 cm. -due for a repeat abdominal ultrasound in September 2019 as outpatient Tobacco abuse -counseling to quit -no respiratory distress at this time Hyperlipidemia -lipid profile with elevated Triglyceride 576, elevated cholesterol 214, low HDL of 10 -started atorvastatin 40 mg daily on this admission Benign prostatic hyperplasia -continue Flomax Chronic Lower Back Pain -reports chronic low back pain of the lumbar sacral spine -patient takes medical marijuana at home -continue home medication of gabapentin 300 mg TID, and Trazodone 150 mg hs Deep venous thrombosis prophylaxis, coumadin full code. Subjective patient seen and examined after pacemaker placement. denies acute pain of the chest. denies shortness of breath. denies abdomen pain. no complaints about the lower back. denies dizziness. denies headache Physical Exam Constitutional: WD/WN, vitals as above Eyes: PERRL, conjunctivae normal, anicteric sclerae EOM intact bilaterally ENMT: external ear and nose normal, oropharynx normal Neck: trachea midline, no thyromegaly normal visual inspection Respiratory: normal respiratory effort, lungs clear to auscultation Cardiovascular: Rate/Rhythm: regular rate and regular rhythm Gastrointestinal (Abdomen): normal bowel sounds, soft, nontender, no hepatosplenomegaly Musculoskeletal: Head/Neck/Chest: normocephalic and head atraumatic Neurologic: PERRL, EOMI, accommodation nl, no face palsy, no dysarthria CN's II-XI intact bilaterally Psychiatric: A+Ox3, euthymic affect Results & Data Vital Signs (Past 12 Hours) Vital Signs Temp Pulse Pulse Resp BP Pulse Ox 11/18/18 15:00 36.7 C 98 H 18 126/81 98 11/18/18 13:56 36.7 C 78 18 137/89 96 11/18/18 13:26 36.7 C 78 18 137/89 96 11/18/18 12:56 36.7 C 66 18 137/91 95 11/18/18 12:41 36.7 C 60 18 137/91 96 11/18/18 12:26 36.5 C 67 18 120/83 95 11/18/18 12:11 36.5 C 65 18 144/95 H 95 11/18/18 08:03 36.5 C 58 L 16 124/81 93 11/18/18 08:00 72 (1) Hyperglycemia due to type 2 diabetes mellitus Diabetes mellitus longterm insulin use: without termite renewal inspector use Qualified Code(s): E11.65 - Type 2 diabetes mellitus with hyperglycemia
[2018-11-18] MEDS: LISINOPRIL 20 MG TAB PO SCH (18:30)
[2018-11-18] MEDS: TRAZODONE HCL 50 MG TAB PO SCH (20:49)
[2018-11-19] MEDS ORDERED: INSULIN ASPART 100 UNITS/ML 3 ML PEN SC SCH
[2018-11-19] MEDS: INSULIN ASPART 100 UNITS/ML 3 ML PEN SC SCH ×6 (00:04→20:38)
[2018-11-19] MEDS: METOPROLOL TARTRATE 1 MG/ML VIAL IV PRN (00:47)
[2018-11-19] MEDS ORDERED: METOPROLOL TARTRATE 1 MG/ML VIAL IV STA (01:54)
--- NOTE | 2018-11-19 06:24 | XRay Report ---
XR chest 2V routine CLINICAL HISTORY: Chest x-ray status post pacemaker placement COMPARISON STUDY: 11/15/2018 FINDINGS: The cardiac and mediastinal contours remain stable. There is stable interstitial thickening . There has been interval placement of a right subclavian dual-chamber central venous pacemaker. Lead position is unremarkable. There is no pneumothorax.[ There is pulmonary emphysema. There are calcifi ed mediastinal and hilar lymph nodes. IMPRESSION: No pneumothorax status post placement of right subclavian central venous pacemaker. Electronically signed by: Gui Maloney M.D. 11/19/2018 6:23 AM
[2018-11-19] MEDS: LEVOTHYROXINE SODIUM 88 MCG TABLET PO SCH (06:39)
[2018-11-19] MEDS: OXYCODONE HCL IR 5 MG TAB (IMMEDIATE RELEASE) PO PRN ×3 (06:47→19:34)
[2018-11-19 06:59] LABS: Basophils # (auto) 0.03 K/uL (0-0.2); Basophils % (auto) 0.3 %; Eosinophils # (auto) 0.12 K/uL (0-0.5); Eosinophils % (auto) 1.3 %; Hematocrit (blood only) 45.7 % (42-52); Hemoglobin 15.7 g/dL (14.0-18.0); Immature Granulocytes % (auto) 1.1 %; Lymphocytes # (auto) 2.36 K/uL (1.2-3.4); Lymphocytes % (auto) 26.4 %; Mean Corpuscular Hgb Conc 34.4 g/dL (32-36); Mean Corpuscular Volume 90.5 fL (80-100); Mean Platelet Volume 10.4 fL (7.4-10.4); Monocytes # (auto) 1.12 K/uL (0.11-0.59); Monocytes % (auto) 12.5 %; Neutrophils # (auto) 5.22 K/uL (1.4-6.5); Neutrophils % (auto) 58.4 %; Platelet Count 159 K/uL (130-400); RDW Coefficient of Variation 13.3 % (11.5-14.5); RDW Standard Deviation 43.6 fL (36.4-46.3); Red Blood Count 5.05 M/uL (4.7-6.1); White Blood Count 8.95 K/uL (4.8-10.8)
[2018-11-19 07:12] LABS: INR 1.1 (0.9-1.1); Prothrombin Time 11.4 Seconds (9.0-12.0)
[2018-11-19 07:33] LABS: Albumin Level 3.4 gm/dl (3.4-5.0); BUN Creatinine Ratio 13.5 (10-20); Calcium 8.5 mg/dl (8.5-10.1); Creatinine Clr Calc Pharmacy 87.5 ml/min; Est GFR (Non-African American) 76.8; Potassium 3.8 mmol/L (3.5-5.1)
[2018-11-19 07:35] LABS: Albumin Globulin Ratio 1.2 (0.9-2); Bilirubin,Total 0.5 mg/dl (0.2-1); Globulin 2.9 gm/dl (2.5-4.0); Total Protein 6.3 gm/dl (6.4-8.2)
[2018-11-19] MEDS: METOPROLOL SUCC 50MG EXT REL TAB PO SCH (07:50)
[2018-11-19] MEDS: NICOTINE 21 MG/24 HR TDSY TD SCH (07:51)
[2018-11-19] MEDS: LIDOCAINE 5% 1 PATCH TD SCH (07:51)
[2018-11-19] MEDS: LISINOPRIL 20 MG TAB PO SCH (07:51)
[2018-11-19] MEDS: ASPIRIN 81 MG ECTAB PO SCH (07:52)
[2018-11-19] MEDS: GABAPENTIN 300 MG CAP PO SCH ×3 (07:52→22:22)
[2018-11-19] MEDS: TAMSULOSIN HCL 0.4 MG CAP PO SCH (07:52)
[2018-11-19] MEDS: ATORVASTATIN 40 MG TAB PO SCH (07:52)
[2018-11-19] MEDS: INSULIN HUMAN 70% NPH/30% REGULAR SC SCH (08:03)
--- NOTE | 2018-11-19 08:55 | Cardiology Progress Note ---
Date of Service November 19, 2018 Assessment & Plan (1) Postsurgical cardiac pacemaker in situ: He is doing well postop day #1, the site looks good, the x-ray looks good, the device is working well. He continues to have paroxysmal atrial fibrillation. Unless felt necessary I would prefer to hold off on anticoagulation for at least 24 hours after surgery (other than Coumadin which will take several days to therapeutic levels). Subjective He tells me that he said he thinks he feels a little bit better now with the pacemaker in, he remains unaware of palpitations. He did have some incisional discomfort this morning but that is not unexpected. Physical Exam Physical Exam: The incision is clean and dry with slight ecchymosis. No swelling or bleeding. Dressing changed. Results & Data Vital Signs (Past 12 Hours) Vital Signs Temp Pulse Pulse Resp BP BP Pulse Ox 11/19/18 08:13 63 11/19/18 07:05 36.6 C 64 18 123/81 96 11/19/18 02:24 117 H 117/76 11/19/18 02:09 117 H 11/19/18 02:07 36.9 C 134 H 18 117/76 90 11/19/18 01:30 39.7 C H 11/19/18 00:47 123 H 137/82 11/19/18 00:19 36.7 C 123 H 22 137/82 90 Diagnostic Findings Postop ECG shows appropriate pacemaker inhibition during sinus rhythm Telemetry: Sinus rhythm with occasional atrial pacing, paroxysmal atrial fibrillation continues but without pauses now with the pacemaker Chest x-ray: Good lead position, no pneumothorax Pacemaker evaluation: Excellent pacing and sensing characteristics
[2018-11-19] MEDS ORDERED: INSULIN GLARGINE SOLOSTAR 100 UNITS/ML 3 ML PEN SC SCH (09:00)
[2018-11-19] MEDS: LACTATED RINGER'S 1,000 ML IV SCH (09:17)
[2018-11-19] MEDS: KETOROLAC TROMETHAMINE 10 MG TABLET PO PRN ×3 (10:20→22:23)
--- NOTE | 2018-11-19 13:42 | Pharmacy Report ---
Pharmacy Glycemic Short Note 2 - Date of Service November 19, 2018 - Glycemic Short BSG Results (Last 24 hours): 11/18/18 11/18/18 11/18/18 16:09 20:12 23:43 Glucose POC Glucose 171 H 132 H 117 H 11/19/18 11/19/18 11/19/18 03:46 06:49 11:14 Glucose 146 H POC Glucose 172 H 182 H OUTPATIENT ANTIDIABETIC REGIMEN: * N/A not taking anything secondary to cost * had Rx for metformin and Jardiance ASSESSMENT: 5-7: * Patient received total of 46 units of insulin yesterday, of which 33 units were Lantus/basal insulin (this is a reduced daily dosing since patient NPO for partial of the day for pacemaker placement) * Patient with cost concerns with insulin - 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 Will start conservatively but may need to titrate up. Will ultimately like to have dosing split 2/3 in AM and 1/3 in PM. * Will continue with CF (no CR) - will loosen CF but continue to determine proper titration of 70/30 mix 5-6: * Patient received total of 79 units of insulin yesterday, of which 45 units were basal insulin * Fasting BSG 138 mg/dL - patient now NPO for pacemaker placement; will reduce AM dose by ~25% (typically 20%, but recently d/c'ed heparin drip) * Will order Lantus 33 units this morning and add scale for this evening, likely diet will resume later today * Lunchtime BSG within range 116 mg/dl - continue same CF/CR 5-5: * 58yo T2DM male with poor outpatient control secondary to not taking outpatient antidiabetic medications due to cost/affordability. Pt also does not tolerate metformin secondary to GI side effects/issues. * A1c was 7.9% in July of this year. Now A1c increased to 9.8%. Pt will need most likely need two agents at tn for A1c >9% * Triglycerides and LDL also elevated. * Initiated SQ basal bolus insulin regimen yesterday based on weight. * Goal is to maintain BSGs <180 mg/dl. * Pt received ~ 80 units of insulin today * AM fasting BSG near goal range at 161 mg/dl this morning. Expect BSG to continue to decrease with repeated dosing of Lantus once at steady state. Lantus is currently being dosed BID- will change to daily to increase compliance * Post-prandial BSGs trending downwards with current CF/CR but are in goal range PLAN FOR INPATIENT GLYCEMIC CONTROL: * Basal insulin: changing Changing to Novolin 70/30 units - 40 units with breakfast and 20 units with dinner (~60 units/day) -Will trial dosing - likely need to titrate up * Bolus insulin - only utilizing CF * NovoLog per scale ACHS or Q6hrs while NPO * Goal Range: Low 110 mg/dL - High 150 mg/dL * Correction Factor: 30 mg/dL/unit * Nutritional / Prandial insulin per carb ratio of 1 unit per -- grams CHO consumed Looking ahead to discharge: * Transitioned to Novolin N 70/30 today as this is best option (jin) for patient * Trialing dosing while in hospital to determine outpatient needs - Patient likely requiring anywhere from 60 - 80 units of insulin per day. Preferred dosing with Novolin N 70/30 is giving 2/3 of dose in AM and 1/3 in the PM * Would recommend close follow up outpatient for proper titration of dosing
--- NOTE | 2018-11-19 14:46 | Hospitalist Progress Note ---
Date of Service November 19, 2018 Assessment & Plan (1) Hyperglycemia due to type 2 diabetes mellitus: -used to be on metformin, but stopped taking it because of diarrhea and family doctor prescribed Jardiance, but he could not take it because of the cost. -HbA1c on 07/29/2018 was 7.9; current hbA1c 9.8 -admission glucose 494 on 11/15/18, glucose have downtrended with IV fluids and Insulin to 200 by 11/16/18 -will continue with insulin as inpatient as per pharmacy glycemic control -patient was seen by press machine feeder on 11/18/18 and that patient's most affordable insulin option would be Novolin ReliOn Insulin 70/30 at [facility] Paroxysmal atrial fibrillation / Tachy-maria antonia syndrome Anticoagulated on anticoagulation therapy -Telemetry has revealed multiple pauses of 4 to 4.5 seconds on this admission; cardiology service recommended pacemaker placement on this hospital admission and patient was anticoagulated on heparin drip -Patient returned to sinus rhythm on 11/16/18 but based on cardiology recommendations of previous arrhythmia and pauses, that patient would benefit for pacemaker placement and IV heparin continued -pacemaker placed on 11/18/18 and patient to started coumadin 5 mg daily without heparin bridge to goal INR of 2 to3 as per cardiology recommendations -between the night time of 11/18/18 to 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 -on Levothyroxine 88 mcg daily -TSH within normal parameters as 1.2 Hypertension -resume lisinopril 20 mg daily History of abdominal aortic aneurysm, 3.3 cm. -due for a repeat abdominal ultrasound in September 2019 as outpatient Tobacco abuse -counseling to quit -no respiratory distress at this time -nicotine patch Hyperlipidemia -lipid profile with elevated Triglyceride 576, elevated cholesterol 214, low HDL of 10 -started atorvastatin 40 mg daily on this admission Benign prostatic hyperplasia -continue Flomax Chronic Lower Back Pain -reports chronic low back pain of the lumbar sacral spine -patient takes medical marijuana at home -continue home medication of gabapentin 300 mg TID, and Trazodone 150 mg hs Deep venous thrombosis prophylaxis, coumadin full code. 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 Patient denies feel palpitations since pacemaker placement. denies acute chest pain. back pain is controlled. denies vomiting. no abdominal pain. no fever. no headache. no lightheadedness Physical Exam Constitutional: WD/WN, vitals as above Eyes: PERRL, conjunctivae normal, anicteric sclerae EOM intact bilaterally ENMT: external ear and nose normal, oropharynx normal Neck: trachea midline, no thyromegaly normal visual inspection Respiratory: normal respiratory effort, lungs clear to auscultation Cardiovascular: Rate/Rhythm: regular rhythm and + bradycardic Chest (Breasts): Chest: + pacemaker Gastrointestinal (Abdomen): normal bowel sounds, soft, nontender, no hepatosplenomegaly Musculoskeletal: Head/Neck/Chest: normocephalic and head atraumatic Neurologic: PERRL, EOMI, accommodation nl, no face palsy, no dysarthria CN's II-XI intact bilaterally Psychiatric: A+Ox3, euthymic affect Results & Data Vital Signs (Past 12 Hours) Vital Signs Temp Pulse Pulse Resp BP Pulse Ox 11/19/18 11:21 36.7 C 56 L 17 112/76 91 11/19/18 08:13 63 11/19/18 07:05 36.6 C 64 18 123/81 96 (1) Hyperglycemia due to type 2 diabetes mellitus 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
[2018-11-19] MEDS: WARFARIN SOD 5 MG TAB PO SCH (15:41)
--- NOTE | 2018-11-19 15:52 | Cardiology Progress Note ---
Date of Service November 19, 2018 Assessment & Plan (1) Paroxysmal atrial fibrillation: (2) Sinus node dysfunction: (3) Tachy-maria antonia syndrome: Status post dual-chamber permanent pacemaker. Hospital dose of metoprolol succinate 12.5 mg daily has been increased to 50 mg daily yesterday. He received that again this morning. Add metoprolol succinate 25 mg dose at bedtime. It is reasonable to continue this rhythm control strategy with pacemaker for heart rate support. We will keep the patient in the hospital another day for observation of his arrhythmia as well as optimization of his diabetes medications. Future considerations include transitioning to sotalol I think this is premature at this point. Disposition: Patient is tentatively scheduled for device clinic/wound check at [facility] on 11/29/2018 at 10:15 AM. Post hospital follow-up with Dean Chavarria PA-C of our practice on 12/04/2018 2:45 PM. Subjective Chief complaint: Follow-up atrial fibrillation, tachycardia-bradycardia syndrome, status post dual-chamber pacemaker Subjective: Patient comfortable. Tolerated implant of dual-chamber pacemaker well yesterday. Device diagnostics performed this morning revealed pacemaker function. Chest x-ray performed today revealed no evidence of pneumothorax appropriately placement. Patient did have recurrent episode of atrial fibrillation while sleeping last night at approximately 2:20 AM with spontaneous conversion to sinus rhythm. Review of Systems Review of Systems: All systems reviewed & are unremarkable except as noted in HPI & below Physical Exam Physical Exam: General: no acute distress and stated age Eyes: conjunctiva are pink and non-injected, sclera clear Neck: normal jugular venous pulse, no hepatojugular reflux Chest: normal shape and normal respiratory effort -Pacemaker pocket noted in the right infraclavicular position dry and intact Lungs: clear to auscultation and percussion Cardiac Exam: - regular heart sounds, no murmurs, rubs, or gallops, no jugular venous distention Abdomen: abdomen soft, non-tender, no abnormal masses and no hepatosplenomegaly Extremities: no edema and no cyanosis Neuro:awake, coversant, follows commands, no focal motor deficits Psych: appropriate affect and insight. Results & Data Vital Signs (Past 12 Hours) Vital Signs Temp Pulse Pulse Resp BP Pulse Ox 11/19/18 15:03 36.5 C 67 18 100/64 90 11/19/18 11:21 36.7 C 56 L 17 112/76 91 11/19/18 08:13 63 11/19/18 07:05 36.6 C 64 18 123/81 96
[2018-11-19] MEDS ORDERED: INSULIN HUMAN 70% NPH/30% REGULAR SC SCH (16:30)
[2018-11-19] MEDS ORDERED: METOPROLOL SUCC 25MG EXT REL TAB PO SCH (21:00)
[2018-11-19] MEDS: TRAZODONE HCL 50 MG TAB PO SCH (22:21)
[2018-11-20] MEDS ORDERED: INSULIN ASPART 100 UNITS/ML 3 ML PEN SC SCH
[2018-11-20] MEDS: OXYCODONE HCL IR 5 MG TAB (IMMEDIATE RELEASE) PO PRN ×2 (01:58→07:30)
[2018-11-20] MEDS: KETOROLAC TROMETHAMINE 10 MG TABLET PO PRN (05:37)
[2018-11-20] MEDS: LEVOTHYROXINE SODIUM 88 MCG TABLET PO SCH (05:38)
[2018-11-20] MEDS: ASPIRIN 81 MG ECTAB PO SCH (07:30)
[2018-11-20] MEDS: TAMSULOSIN HCL 0.4 MG CAP PO SCH (07:30)
[2018-11-20] MEDS: LISINOPRIL 20 MG TAB PO SCH (07:30)
[2018-11-20] MEDS: METOPROLOL SUCC 50MG EXT REL TAB PO SCH (07:31)
[2018-11-20] MEDS: GABAPENTIN 300 MG CAP PO SCH (07:31)
[2018-11-20] MEDS: ATORVASTATIN 40 MG TAB PO SCH (07:32)
[2018-11-20] MEDS: NICOTINE 21 MG/24 HR TDSY TD SCH (07:32)
[2018-11-20] MEDS: LIDOCAINE 5% 1 PATCH TD SCH (07:33)
[2018-11-20 07:34] LABS: INR 1.2 (0.9-1.1); Prothrombin Time 11.9 Seconds (9.0-12.0)
[2018-11-20] MEDS: INSULIN ASPART 100 UNITS/ML 3 ML PEN SC SCH ×2 (07:38→11:57)
[2018-11-20] MEDS: INSULIN HUMAN 70% NPH/30% REGULAR SC SCH (07:43)
[2018-11-20 08:02] LABS: BUN Creatinine Ratio 16.6 (10-20); Calcium 8.8 mg/dl (8.5-10.1); Creatinine Clr Calc Pharmacy 82.8 ml/min; Est GFR (African American) 83.2; Est GFR (Non-African American) 71.8; Magnesium 2.1 mg/dl (1.8-2.4); Potassium 3.6 mmol/L (3.5-5.1)
--- NOTE | 2018-11-20 09:56 | Hospitalist Progress Note ---
Date of Service November 20, 2018 Assessment & Plan (1) Hyperglycemia due to type 2 diabetes mellitus: -used to be on metformin, but stopped taking it because of diarrhea and family doctor prescribed Jardiance, but he could not take it because of the cost. -HbA1c on 07/29/2018 was 7.9; current hbA1c 9.8 -admission glucose 494 on 11/15/18, glucose have downtrended with IV fluids and Insulin to 200 by 11/16/18 -will continue with insulin as inpatient as per pharmacy glycemic control -patient was seen by clinical informatics educator on 11/18/18 and that patient's most affordable insulin option would be Novolin ReliOn Insulin 70/30 at [facility] -11/20/18: Patient should take medications as prescribed including taking the Novolin 70/30 insulin as 40 units with breakfast and 20 units with dinner. Prescription for insulin syringes/needles were prescribed Paroxysmal atrial fibrillation / Tachy-maria antonia syndrome, pacemaker placed on 11/18/18, Anticoagulated on anticoagulation therapy (heparin IV prior to pacemaker placement, discharge on coumadin) -Telemetry has revealed multiple pauses of 4 to 4.5 seconds on this admission; cardiology service recommended pacemaker placement on this hospital admission and patient was anticoagulated on heparin drip -Patient returned to sinus rhythm on 11/16/18 but based on cardiology recommendations of previous arrhythmia and pauses, that patient would benefit for pacemaker placement and IV heparin continued -pacemaker placed on 11/18/18 and patient to started coumadin 5 mg daily without heparin bridge to goal INR of 2 to3 as per cardiology recommendations -between the night time of 11/18/18 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 During day time, patient's heart rate paced at 60 beats per minute. Patient denies chest pain or shortness of breath or palpitations or lightheadedness. Chronic back pain is tolerable as per patient. no abdomen pain. Had discussed with cardiology service that patient may be discharged with follow up. Patient agrees to discharge plans -discharge on metoprolol succinate 50 mg dialy and 25 mg qhs and coumadin 5 mg daily and patient has follow up to coumadin clinic, primary care doctor, and cardiology clinics Hypothyroidism. -on Levothyroxine 88 mcg daily -TSH within normal parameters as 1.2 Hypertension -continue lisinopril 20 mg daily History of abdominal aortic aneurysm, 3.3 cm. -due for a repeat abdominal ultrasound in September 2019 as outpatient Tobacco abuse -counseling to quit -no respiratory distress at this time -nicotine patch Hyperlipidemia -lipid profile with elevated Triglyceride 576, elevated cholesterol 214, low HDL of 10 -started atorvastatin 40 mg daily on this admission and discharge on atorvastatin Benign prostatic hyperplasia -continue Flomax Chronic Lower Back Pain -reports chronic low back pain of the lumbar sacral spine -patient takes medical marijuana at home -continue home medication of gabapentin 300 mg TID, and Trazodone 150 mg hs -Patient given information on scheduling with [facility] Deep venous thrombosis prophylaxis, coumadin full code. Discharge Diagnosis Primary Diagnosis: Hyperglycemia due to type 2 diabetes mellitus; Hyperlipidemia, Paroxysmal atrial fibrillation / Tachy-maria antonia syndrome, pacemaker placed on 11/18/18, was anticoagulated on anticoagulation therapy (heparin IV prior to pacemaker placement, discharge on coumadin) Secondary Diagnosis: Chronic low back pain, Tobacco abuse, History of abdominal aortic aneurysm that is 3.3 cm Discharge Instructions Discharge to home Patient should take medications as prescribed including taking the Novolin 70/30 insulin as 40 units with breakfast and 20 units with dinner. Prescription for insulin syringes/needles were prescribed Patient should have INR checked on 11/22/18. [facility] appointment line was notified to schedule with clinic in [place] 11/26/2018 11:20 AM Provider Liliam Duran DO Department Family Practice, [place] 11/29/2018 10:30 AM Provider Pac[facility] Department Cardiology, [facility] 12/04/2018 3:00 PM Provider Dean Chavarria PA-C Department Cardiology, [facility] Patient may call to schedule future appointment with [facility] [address] [place] [address] Subjective Overnight patient noted to have some atrial flutter but heart rates generally controlled. During day time, patient's heart rate paced at 60 beats per minute. Patient denies chest pain or shortness of breath or palpitations or lightheadedness. Chronic back pain is tolerable as per patient. no abdomen pain. Had discussed with cardiology service that patient may be discharged with follow up. Patient agrees to discharge plans Physical Exam Constitutional: WD/WN, vitals as above Eyes: PERRL, conjunctivae normal, anicteric sclerae EOM intact bilaterally ENMT: external ear and nose normal, oropharynx normal Neck: trachea midline, no thyromegaly normal visual inspection Respiratory: normal respiratory effort, lungs clear to auscultation Cardiovascular: Rate/Rhythm: regular rhythm and + bradycardic Chest (Breasts): Chest: + pacemaker Gastrointestinal (Abdomen): normal bowel sounds, soft, nontender, no hepatosplenomegaly Musculoskeletal: Head/Neck/Chest: normocephalic and head atraumatic Neurologic: PERRL, EOMI, accommodation nl, no face palsy, no dysarthria CN's II-XI intact bilaterally Psychiatric: A+Ox3, euthymic affect Results & Data Vital Signs (Past 12 Hours) Vital Signs Temp Pulse Pulse Resp BP Pulse Ox 11/20/18 07:43 36.5 C 60 18 129/88 90 11/20/18 03:10 36.4 C L 62 16 127/70 95 11/20/18 00:00 87 11/19/18 23:19 36.6 C 73 18 112/76 94 (1) Hyperglycemia due to type 2 diabetes mellitus 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
--- NOTE | 2018-11-20 10:04 | Discharge Summary ---
Date of Service November 20, 2018 Admission HPI Per Admitting Provider DATE OF ADMISSION: 11/15/2018 CHIEF COMPLAINT: Generalized weakness and fatigue and uncontrolled blood sugar. HISTORY OF PRESENT ILLNESS: This is a 58-year-old male with past medical history of diabetes. He used to be on metformin for 7-8 years but could not tolerate because of diarrhea. Supposed to get Jardiance, but could not get it because of high cost. Currently not on any medications. History of atrial fibrillation, used to be on Toprol which he stopped, but since last cardiology visit, is on Toprol-XL 25 mg daily and aspirin. He does not want to be on Coumadin because of difficulty managing Coumadin levels, and cardiology recommended newer agents, but stopped it because of cost as per the cardiology notes. History of hypothyroidism, history of abdominal aortic aneurysm, hypertension, hyperlipidemia, hepatitis C, mood disorder, anxiety, ADHD, who presents with not feeling well for last few days, weak and tired, and the sugars running in 300-400 range. Called his PCP and advised to come to the ER. The patient has heart rates in 120s to 130s, in rapid atrial flutter. He feels his mind is cloggy, he feels dry, some blurred vision. No headaches, no earaches, no sore throat. Appetite is okay. No difficulty swallowing. No chest pain. He is feeling short of breath and oxygen is helping him. No cough, no fever, no chills, Was vomiting in the morning. Has some abdominal discomfort, has chronic back pain. He has some diarrhea since yesterday. No blood in the stools, no black stools. He is micturating a lot. No burning micturition, no hematuria. No rash, no swelling in the legs. Lives with his . Walks without any help. Admission Exam Per Admitting Provider PHYSICAL EXAMINATION: GENERAL: The patient is of moderate build, not in acute distress. VITAL SIGNS: Temperature 36.3, pulse 100, respiratory rate 24, blood pressure 126/87, oxygen 96% on 2 L. HEENT: No pallor, no icterus. Pupils equal, round, and reactive to light. NECK: No JVD, no neck masses, no carotid bruits. CARDIOVASCULAR: S1, S2 heard, irregular rhythm. Tachycardia. No murmur. RESPIRATORY SYSTEM: Normal AP diameter. No accessory muscle use. No wheezing, no crackles. ABDOMEN: Soft, bowel sounds present. Nontender. No distention. CENTRAL NERVOUS SYSTEM: Cranial nerves II-XII grossly intact. Nonfocal. EXTREMITIES: No edema, no erythema. Principal Diagnosis Primary Diagnosis: Hyperglycemia due to type 2 diabetes mellitus; Hyperlipidemia, Paroxysmal atrial fibrillation / Tachy-maria antonia syndrome, pacemaker placed on 11/18/18, was anticoagulated on anticoagulation therapy (heparin IV prior to pacemaker placement, discharge on coumadin) Secondary Diagnosis: Chronic low back pain, Tobacco abuse, History of abdominal aortic aneurysm that is 3.3 cm Discharge Exam Constitutional WD/WN, vitals as above Eyes PERRL, conjunctivae normal, anicteric sclerae EOM intact bilaterally ENMT external ear and nose normal, oropharynx normal Neck trachea midline, no thyromegaly normal visual inspection Respiratory normal respiratory effort, lungs clear to auscultation Cardiovascular Rate/Rhythm: regular rhythm and + bradycardic Chest (Breasts) Chest: + pacemaker Gastrointestinal (Abdomen) normal bowel sounds, soft, nontender, no hepatosplenomegaly Musculoskeletal Head/Neck/Chest: normocephalic and head atraumatic Neurologic PERRL, EOMI, accommodation nl, no face palsy, no dysarthria CN's II-XI intact bilaterally Psychiatric A+Ox3, euthymic affect Discharge Data Allergies Allergy/AdvReac Type Severity Reaction Status Date / Time No Known Allergies Allergy Verified 11/15/18 20:18 Consultations 11/15/18 19:32 ED Decision to Admit Stat 11/15/18 21:37 Consult Case Management - Discharge Planning Routine 11/16/18 08:00 Consult Cardiology Routine 11/17/18 10:35 Consult Cardiac Electrophysiology Routine Procedures Performed Operation Date: 11/18/18 10:00 Actual Procedures p Pacer with A/V Leads (Dual)(Right) - Dhruv Youngblood MD s Venogram, Unilateral(Right) - Dhruv Youngblood MD Ordered Studies 11/18/18 07:00 EP Lab Images for PACS ONCE Hospital Course (1) Hyperglycemia due to type 2 diabetes mellitus: -used to be on metformin, but stopped taking it because of diarrhea and family doctor prescribed Jardiance, but he could not take it because of the cost. -HbA1c on 07/29/2018 was 7.9; current hbA1c 9.8 -admission glucose 494 on 11/15/18, glucose have downtrended with IV fluids and Insulin to 200 by 11/16/18 -will continue with insulin as inpatient as per pharmacy glycemic control -patient was seen by para educator on 11/18/18 and that patient's most affordable insulin option would be Novolin ReliOn Insulin 70/30 at [facility] -11/20/18: Patient should take medications as prescribed including taking the Novolin 70/30 insulin as 40 units with breakfast and 20 units with dinner. Prescription for insulin syringes/needles were prescribed Paroxysmal atrial fibrillation / Tachy-maria antonia syndrome, pacemaker placed on 11/18/18, Anticoagulated on anticoagulation therapy (heparin IV prior to pacemaker placement, discharge on coumadin) -Telemetry has revealed multiple pauses of 4 to 4.5 seconds on this admission; cardiology service recommended pacemaker placement on this hospital admission and patient was anticoagulated on heparin drip -Patient returned to sinus rhythm on 11/16/18 but based on cardiology recommendations of previous arrhythmia and pauses, that patient would benefit for pacemaker placement and IV heparin continued -pacemaker placed on 11/18/18 and patient to started coumadin 5 mg daily without heparin bridge to goal INR of 2 to3 as per cardiology recommendations -between the night time of 11/18/18 to 11/19/18 is technician patient have atrial fibrillation with RVR as seen on the telemetry; patient's heart rate stable during the day time of 11/19/18 and patient agrees for further observation on telemetry; cardiology service increased the metoprolol succinate 50 mg daily with additional 25 mg qhs -11/20/18: Overnight patient noted to have some atrial flutter but heart rates generally controlled. During day time, patient's heart rate paced at 60 beats per minute. Patient denies chest pain or shortness of breath or palpitations or lightheadedness. Chronic back pain is tolerable as per patient. no abdomen pain. Had discussed with cardiology service that patient may be discharged with follow up. Patient agrees to discharge plans -discharge on metoprolol succinate 50 mg dialy and 25 mg qhs and coumadin 5 mg daily and patient has follow up to coumadin clinic, primary care doctor, and cardiology clinics Hypothyroidism. -on Levothyroxine 88 mcg daily -TSH within normal parameters as 1.2 Hypertension -continue lisinopril 20 mg daily History of abdominal aortic aneurysm, 3.3 cm. -due for a repeat abdominal ultrasound in September 2019 as outpatient Tobacco abuse -counseling to quit -no respiratory distress at this time -nicotine patch Hyperlipidemia -lipid profile with elevated Triglyceride 576, elevated cholesterol 214, low HDL of 10 -started atorvastatin 40 mg daily on this admission and discharge on atorvastatin Benign prostatic hyperplasia -continue Flomax Chronic Lower Back Pain -reports chronic low back pain of the lumbar sacral spine -patient takes medical marijuana at home -continue home medication of gabapentin 300 mg TID, and Trazodone 150 mg hs -Patient given information on scheduling with [facility] Deep venous thrombosis prophylaxis, coumadin full code. Discharge Diagnosis Primary Diagnosis: Hyperglycemia due to type 2 diabetes mellitus; Hyperlipidemia, Paroxysmal atrial fibrillation / Tachy-maria antonia syndrome, pacemaker placed on 11/18/18, was anticoagulated on anticoagulation therapy (heparin IV prior to pacemaker placement, discharge on coumadin) Secondary Diagnosis: Chronic low back pain, Tobacco abuse, History of abdominal aortic aneurysm that is 3.3 cm Discharge Instructions Discharge to home Patient should take medications as prescribed including taking the Novolin 70/30 insulin as 40 units with breakfast and 20 units with dinner. Prescription for insulin syringes/needles were prescribed Patient should have INR checked on 11/22/18. [facility] appointment line was notified to schedule with clinic in [place] 11/26/2018 11:20 AM Provider Liliam Duran DO Department Family Practice, [place] 11/29/2018 10:30 AM Provider Pacer Clinic [facility] Department Cardiology, [facility] 12/04/2018 3:00 PM Provider Dean Chavarria PA-C Department Cardiology, [facility] Patient may call to schedule future appointment with [facility] [address] [place] [address] Total Time Total Time Spent Total Time Spent (In Minutes): 40 minutes Total Time Includes: Examination of the Patient, Discharge Planning, Medication Reconciliation and Communication With Other Providers Discharge Plan Discharge Items Patient Disposition: Home - Self-Care Reason For Visit: UNCONTROLLED DM Discharge Diagnosis: Primary Diagnosis: Hyperglycemia due to type 2 diabetes mellitus; Hyperlipidemia, Paroxysmal atrial fibrillation / Tachy-maria antonia syndrome, pacemaker placed on 11/18/18, was anticoagulated on anticoagulation therapy (hepar in IV prior to pacemaker placement, discharge on coumadin) Secondary Diagnosis: Chronic low back pain, Tobacco abuse, History of abdominal aortic aneurysm that is 3.3 cm Condition: Good Discharge Goals: Improve disease control Activity: Resume your previous activity Non-emergency contact: Primary Care Provider and 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 Prescription for insulin syringes/needles were prescribed Patient should have INR checked on 11/22/18. [facility] appointment line was notified to schedule with clinic in [place] 11/26/2018 11:20 AM Provider Liliam Duran DO Department [facility], [place] 11/29/2018 10:30 AM Provider Pacer Clinic [facility] Department Cardiology, [facility] 12/04/2018 3:00 PM Provider Dean Chavarria PA-C Department Cardiology, [facility] Patient may call to schedule future appointment with [facility] [address] [place] [address] Prescriptions: New atorvastatin 40 mg Tablet 40 mg PO QAM 30 Days Qty: 30 RF: 0 metoprolol succinate 50 mg Tablet Extended Release 24 Hr 50 mg PO QAM 30 Days Qty: 30 RF: 0 lisinopril 20 mg Tablet 20 mg PO QAM 30 Days Qty: 30 RF: 0 warfarin [Coumadin] 5 mg Tablet 5 mg PO DAILY@1600 30 Days Qty: 30 RF: 0 nicotine [Nicoderm CQ] 21 mg/24 hr Patch 24 Hour 21 mg transdermal DAILY 30 Days Qty: 30 RF: 0 metoprolol succinate 25 mg Tablet Extended Release 24 Hr 25 mg PO HS 30 Days Qty: 30 RF: 0 Novolin 70/30 U-100 Insulin 100 unit/mL (70-30) Suspension 40 unit SC QDB 30 Days Qty: 12 RF: 0 Novolin 70/30 U-100 Insulin 100 unit/mL (70-30) Suspension 20 unit SC QDD 30 Days Qty: 6 RF: 0 Continued trazodone 50 mg Tablet 150 mg PO HS RF: 0 aspirin [Aspirin Low Dose] 81 mg Tablet,Delayed Release (Dr/Ec) 81 mg PO QAM RF: 0 levothyroxine 88 mcg Tablet 88 mcg PO QAM RF: 0 tamsulosin 0.4 mg capsule 0.4 mg PO QAM RF: 0 gabapentin 300 mg Capsule 300 mg PO TID RF: 0 Discontinued lisinopril 20 mg Tablet 20 mg PO QAM RF: 0 metoprolol succinate 25 mg Capsule,Sprinkle,Er 24hr 12.5 mg PO DAILY RF: 0 metoprolol succinate 25 mg tablet extended release 24 hr 12.5 mg PO QAM RF: 0 Stand-Alone Forms: [facility] Discharge Orders: Discharge Order (Routine); Ordered 11/20/18 Ordered By: Reece Carlson Admission Data Admit Date/Time: 11/15/18 20:41 Attending Provider: Reece Carlson Admit Provider: Massimo Cruz Primary Care Provider: Liliam Duran Other Providers: Massimo Cruz ; David Marquez ; Tyrese Reece ; Vladimir Daniel ; Jian Frederick ; AntionetteConnor mercedes ; Dean Chavarria ; Marissa García ; Nohemy Goldman ; Dhruv Youngblood Service: Telemetry
== END 2018-11-20 12:04 | disposition home or self-care (01) | DRG 243 ==
LOC: ED 17:55 → 2S 20:41